=== PATIENT | female | born 1965 | race Caucasian/White ===

== ENCOUNTER 2020-09-26 12:51 | Emergency (ER) | payer OTHER ==
[2020-09-26] MEDS ORDERED: Morphine 4 MG/ML VIAL ONE ×2 (13:16→13:21)
--- NOTE | 2020-09-26 14:25 | RAD ---
XR Pelvis AP STANDARD History: Fall Comparison: Reference is made to a CT from 2013 Findings: Moderate narrowing of the right hip joint. Moderate bilateral acetabular osteophyte formati on. Poor penetration limits evaluation for fracture. Obturator rings appear to be intact. Impression: Limited exam due to poor penetration from body habitus. Moderate degenerative disease rig ht hip. No acute displaced fracture appreciated. If the patient is acutely unable to bear weight, CT would be recommended.
--- NOTE | 2020-09-26 14:28 | RAD ---
XR Lumbar Spine 1 view History: Fall Comparison: None. Findings: Only a single AP view was obtained. No lateral radiograph. No definite fracture is appreciated. Mild dextro scoliosis. Impression: Limited single view. No acute displaced fracture of the lumbar spine definitively appreci ated although lateral radiograph would be helpful.
== END 2020-09-26 17:45 | disposition home or self-care (01) ==
LOC: ERS 12:51
DX: S70.02XA Contusion of left hip, initial encounter (principal); M54.5 Low back pain; G47.30 Sleep apnea, unspecified; I10 Essential (primary) hypertension; Z79.899 Other long term (current) drug therapy; W01.0XXA Fall on same level from slipping, tripping and stumbling without subsequent striking against object, initial encounter
CPT/HCPCS: 72020; 72170; J2270

== ENCOUNTER 2020-09-28 10:47 | Inpatient (IN) | payer OTHER ==
--- NOTE | 2020-09-28 11:30 | RAD ---
Chest one view HISTORY: Dyspnea. COMPARISON: 09/09/2013. FINDINGS: Cardiac silhouette is magnified and enlarged. Pulmonary vasculature slightly engorged and a ccentuated by shallow inspiration. Mediastinum is midline. No focal airspace consolidation or evidence of pneumothorax. Degenerative changes left shoulder. IMPRESSION : No infiltrate is evident. Cardiomegaly and pulmonary vascular congestion suggest component of CHF.
[2020-09-28 12:37] LABS: ALT (SGPT) 170 U/L (8-55); AST (SGOT) 323 U/L (5-34); Albumin 3.7 g/dL (3.5-5.0); Alkaline Phosphatase 83 U/L (40-110); Anion Gap 19 mmol/L (10-20); BUN (Urea Nitrogen) 50 mg/dL (9.8-20.1); Bilirubin, Total 3.4 mg/dL (0.2-1.2); Calc. Creatinine Clearance 0 mL/min (70-130); Calcium 8.3 mg/dL (7.8-10.44); Carbon Dioxide 30 mmol/L (22-29); Chloride 97 mmol/L (98-107); Glucose 122 mg/dL (70-105); Potassium 5.2 mmol/L (3.5-5.1); Protein, Total 7.7 g/dL (6.0-8.3); Sodium 141 mmol/L (136-145)
[2020-09-28 13:16] LABS: CKMB 29.9 ng/mL (0-6.6)
[2020-09-28] MEDS ORDERED: Aspirin Chewable 81 MG TAB ONE (13:36)
[2020-09-28] MEDS ORDERED: Acetaminophen 650 MG Suppository PR PRN (13:54)
[2020-09-28] MEDS ORDERED: Ondansetron PF 4 MG/2 ML Vial IVP PRN (13:54)
[2020-09-28] MEDS ORDERED: Nitroglycerin 0.4 MG TAB (25 Tab Bottle) SL PRN (13:54)
[2020-09-28] MEDS ORDERED: Bisacodyl 5 MG TAB PO PRN (13:54)
[2020-09-28] MEDS ORDERED: Aspirin Chewable 81 MG TAB PO SCH (14:00)
--- NOTE | 2020-09-28 14:13 | PDOC.HHP ---
Hospitalist HPI - History of Present Illness Fall History of Present Illness: Patient is a pleasant 54-year-old lady who was seen in the emergency room on September 28, 2020. She has a history of morbid obesity. She does not ambulate much. She slid out of couch and fell a couple of days ago. She was brought to the emergency room and she had x-rays and received pain medications and was discharged home. She had a recurrence of sliding out of couch yesterday night as well as early today morning. She denies any head trauma or loss of consciousness. Family member in the room states that she has been having lethargy over the last few days. There is no history of fevers or chills. There is no history of Covid exposure. Patient is able to speak but is not speaking much. Collateral history was obtained from discussion with emergency room physician and patient's family member by the bedside. In the emergency room, patient was found to have multiple biochemical abnormalities including acute kidney injury and elevated troponin I. She has been referred to hospitalist service for admission to the hospital and further management. Patient does report shortness of breath with exertion. ED Course: BP: 156/97, Pulse: 85, Resp: 25, Temp: 98.1 (Oral), Pain: 0, O2 sat: 95 on (3L Oxygen), Time: 09/28/2020 13:16. Hospitalist ROS - Review of Systems Constitutional: reports: weakness. denies: fever, chills, sweats, malaise Respiratory: reports: SOB with excertion. denies: cough, dry, shortness of breath, hemoptysis, pleuritic pain, sputum, wheezing Cardiovascular: denies: chest pain, palpitations, orthopnea, paroxysmal noc. dyspnea, edema, light headedness All other systems reviewed; all pertinent +/- noted in HPI/Subj - Medication Medications: Allergies: Codeine and lisinopril Home medications: carvedilol tablet : Strength - 25 mg : ORAL Patient Dose: 25 mg Oral 2 times a day (before meals). Flexeril 10 mg : Strength - TABLET : ORAL Patient Dose: 1 tab(s) Oral every 8 hours PRN. ibuprofen 800 mg : Strength - TABLET : ORAL Patient Dose: 800 mg Oral every 8 hours PRN. traMADol 50 mg : Strength - TABLET : ORAL Patient Dose: 1-2 tab(s) Oral every 6 hours PRN. Hospitalist History - Past Medical History Other Medical History: Past medical history: Obstructive sleep apnea syndrome, hypertension and osteoarthritis Surgical history: Uterine ablation, cholecystectomy, section and left knee surgery Social history: Patient denies tobacco use, alcohol use or recreational drug use. Family history: No family history of premature coronary artery disease. - Exam General - other findings: Morbid obesity ENT: normocephalic atraumatic Neck: supple, symmetric, no thyromegaly, no lymphadenopathy Heart: RRR, no gallops, no rubs, normal peripheral pulses Respiratory: CTAB, no wheezes, no rales, no ronchi, normal chest expansion Gastrointestinal: soft, non-tender, normal bowel sounds, distended Extremities: 1+ LE edema Skin - other findings: multiple scratches over upper extremities Neurological: cranial nerve grossly intact, normal sensation to touch, no weakness Psychiatric: normal behavior, oriented to person, oriented to place, flat affect Hospitalist Results - Labs Result Diagrams: 09/28/20 12:05 Lab results: Sodium 141 mmol/L (136-145) 09/28/20 12:05 Potassium 5.2 mmol/L (3.5-5.1) H 09/28/20 12:05 Chloride 97 mmol/L (98-107) L 09/28/20 12:05 Carbon Dioxide 30 mmol/L (22-29) H 09/28/20 12:05 BUN 50 mg/dL (9.8-20.1) H 09/28/20 12:05 Creatinine 2.88 mg/dL (0.6-1.1) H 09/28/20 12:05 Glucose 122 mg/dL (70-105) H 09/28/20 12:05 Calcium 8.3 mg/dL (7.8-10.44) 09/28/20 12:05 Total Bilirubin 3.4 mg/dL (0.2-1.2) H 09/28/20 12:05 AST 323 U/L (5-34) H 09/28/20 12:05 ALT 170 U/L (8-55) H 09/28/20 12:05 Alkaline Phosphatase 83 U/L (40-110) 09/28/20 12:05 CK-MB (CK-2) 29.9 ng/mL (0-6.6) H* 09/28/20 12:05 Troponin I 4.430 ng/mL (< 0.028) H* 09/28/20 12:05 B-Natriuretic Peptide 420.8 pg/mL (0-100) H 09/28/20 12:05 Serum Total Protein 7.7 g/dL (6.0-8.3) 09/28/20 12:05 Albumin 3.7 g/dL (3.5-5.0) 09/28/20 12:05 - EKG Interpretation EKG: KG by my review shows normal sinus rhythm, no ST changes to suggest an acute coronary syndrome. - Radiology Interpretation Chest x-ray Status: image reviewed by me Additional Comment: Chest one view HISTORY: Dyspnea. COMPARISON: 09/09/2013. FINDINGS: Cardiac silhouette is magnified and enlarged. Pulmonary vasculature slightly engorged and a ccentuated by shallow inspiration. Mediastinum is midline. No focal airspace consolidation or evidence of pneumothorax. Degenerative changes left shoulder. IMPRESSION : No infiltrate is evident. Cardiomegaly and pulmonary vascular congestion suggest component of CHF. Hospitalist H&P A/P - Problem (1) Non-ST elevation myocardial infarction (NSTEMI) Code(s): I21.4 - NON-ST ELEVATION (NSTEMI) MYOCARDIAL INFARCTION Status: Acute (2) Acute kidney injury Code(s): N17.9 - ACUTE KIDNEY FAILURE, UNSPECIFIED Status: Acute (3) Hyperkalemia Code(s): E87.5 - HYPERKALEMIA Status: Acute (4) Abnormal liver function tests Code(s): R94.5 - ABNORMAL RESULTS OF LIVER FUNCTION STUDIES Status: Acute (5) Congestive heart failure Code(s): I50.9 - HEART FAILURE, UNSPECIFIED Status: Acute (6) Morbid obesity Code(s): E66.01 - MORBID (SEVERE) OBESITY DUE TO EXCESS CALORIES Status: Chronic - Plan Plan: Patient presenting with non-ST elevation myocardial infarction. Monitor on telemetry, recheck troponin. Consult cardiology service. Patient is being started on heparin drip. Continue aspirin. Clinically, patient also has congestive heart failure. Check 2D echocardiogram, continue diuretics with close follow-up of renal function. Kidney injury is acute, consult nephrology service. Hyperkalemia mild, recheck potassium level. Check noncontrast CT scan of the brain, given history of encephalopathy changes. Abnormal LFTs most likely secondary to congestive heart failure, check abdominal ultrasound. Estimated length of stay in the hospital: Greater than 2 midnights Level of risk: High Level of complexity: High Many thanks for allowing me to participate in your patient's care. Please feel free to contact me with any questions or concerns. Primary CARE provider: Dr. Michelle Khan
[2020-09-28] MEDS ORDERED: Heparin 25,000 units/D5W 500 ML ONE (14:46)
[2020-09-28] MEDS ORDERED: Heparin 10,000 UNITS/ 10 ML VIAL ONE (16:04)
[2020-09-28 17:02] LABS: Hemoglobin 13.9 g/dL (12.0-16.0); Mean Corpuscular HGB CONC 31.9 g/dL (32.0-36.0); Mean Corpuscular Hemoglobin 32.7 pg (27.0-31.0); Mean Platelet Volume 9.1 fL (7.4-10.4); Platelet Count 96 thou/uL (130-400); RBC Distribution Width 13.9 % (11.5-14.5); Red Blood Cell (RBC) Count 4.26 mill/uL (4.20-5.40); White Blood Cell (WBC) Count 22.4 thou/uL (4.8-10.8)
[2020-09-28 17:21] LABS: Band 5 % (5-11); Lymphocytes 5 % (21-51); MDiff Complete? YES; Macrocytosis SLIGHT = 6-15 cells (100X) (0-5/hpf); Metamyelocyte 1 % (0-0); Monocytes 6 % (0-10); Neutrophil 83 % (42-75); Platelet Morphology Comment Appears Decreased; Polychromasia SLIGHT = 2-3 cells (100X) (0-2/hpf)
[2020-09-28 17:36] LABS: Critical Call Chem Troponin I RESULT DECREASING; Troponin I 4.039 ng/mL (< 0.028)
--- NOTE | 2020-09-28 18:55 | PDOC.EVN ---
Event Note - Event Note Event Note: Patient was seen for lethargy. She is lying in bed, keeping her eyes closed. She is able to tell me her name and her birthday. She denies any chest pain or shortness of breath. Cranial nerves II to XII are intact. S1 and S2 are heard, regular. Lungs clear to auscultation. We will check blood gases to rule out hypercapnic respiratory failure. Unable to obtain CT scan of the brain because of patient size. Family member confirms that patient did not sustain head trauma during her falls. We will check troponin I, CBC and comprehensive metabolic profile. If hemoglobin is dropping, discontinue heparin drip and observe. If she is in hypercapnic respiratory failure, transferred to IMCU and start BiPAP. I will order albuterol nebulizer for mild hyperkalemia. I will also start her on empiric antibiotics in case she has an infection that has not manifested itself. She does have leukocytosis but no fever. I will check urine studies and blood cultures.
[2020-09-28] MEDS ORDERED: Vancomycin 1 GM in Premix Bag 1 BAG IVPB SCH (19:00)
[2020-09-28] MEDS ORDERED: Albuterol Sulfate 2.5 mg/3 ml Neb ONE (19:21)
[2020-09-28] MEDS ORDERED: Albuterol Sulfate 2.5 mg/3 ml Neb NEB SCH (19:45)
[2020-09-28 19:51] LABS: #Basophils 0.1 thou/uL (0.0-0.2); #Lymphocytes 1.6 thou/uL (1.20-3.40); #Monocytes 2.3 thou/uL (0.11-0.59); #Neutrophils 18.7 thou/uL (1.40-6.50); %Basophils 0.6 % (0.0-1.0); %Eosinophils 0.2 % (0.0-10.0); %Monocytes 10.2 % (0.0-10.0); %Neutrophils 82.1 % (42.0-75.0); Hemoglobin 14.5 g/dL (12.0-16.0); Mean Corpuscular HGB CONC 31.7 g/dL (32.0-36.0); Mean Corpuscular Hemoglobin 32.3 pg (27.0-31.0); Mean Platelet Volume 10.1 fL (7.4-10.4); Platelet Count 48 thou/uL (130-400); Red Blood Cell (RBC) Count 4.49 mill/uL (4.20-5.40); White Blood Cell (WBC) Count 22.8 thou/uL (4.8-10.8)
[2020-09-28 20:12] LABS: Band 5 % (5-11); Lymphocytes 6 % (21-51); MDiff Complete? YES; Monocytes 9 % (0-10); Neutrophil 80 % (42-75); Platelet Morphology Comment Appears Decreased; RBC Morphology Normal; Vacuoles SLIGHT
[2020-09-28 20:51] LABS: Critical Call Chem Troponin I RESULT DECREASING; Troponin I 3.384 ng/mL (< 0.028)
[2020-09-28] MEDS ORDERED: Metoprolol Tartrate 25 MG TAB PO SCH (21:00)
[2020-09-28 21:05] LABS: Actual Bicarbonate (HCO3a) 33.1 mEq/L (22-28); Analyzer IN Cardio OR; Base Excess (BEa) 3.1 mEq/L (-2.0 to +3.0); Calcium, Ionized (arterial) 1.07 mmol/L (1.12-1.30); Carboxyhemoglobin (COHb) 2.1 gm% (0.0-3.0); Hemoglobin (Hb) 14.1 g/dL (12.0-16.0); O2 Tension (PaO2), arterial 69.1 mmHg (80.0-100.0); Potassium - ABG Lab 4.89 mmol/L (3.70-5.30)
[2020-09-28 21:06] LABS: Puncture Site RBA; pH, Arterial 7.24 (7.35-7.45)
[2020-09-28 21:37] LABS: SARS-CoV-2 NAA Rapid Test Not Detected (NotDetected)
[2020-09-28] MEDS ORDERED: hydrALAZINE 20 MG/ML VIAL SLOW IVP PRN (21:45)
[2020-09-28 22:08] LABS: Albumin 3.2 g/dL (3.5-5.0)
[2020-09-28 22:09] LABS: Chloride 100 mmol/L (98-107); Potassium 5.2 mmol/L (3.5-5.1); Sodium 139 mmol/L (136-145)
[2020-09-28 22:10] LABS: Calcium 7.6 mg/dL (7.8-10.44); Glucose 131 mg/dL (70-105)
[2020-09-28 22:11] LABS: Carbon Dioxide 27 mmol/L (22-29); Globulin 3.5 g/dL (2.4-3.5); Protein, Total 6.7 g/dL (6.0-8.3)
[2020-09-28 22:12] LABS: Anion Gap 17 mmol/L (10-20); Bilirubin, Total 2.6 mg/dL (0.2-1.2)
[2020-09-28 22:13] LABS: Alkaline Phosphatase 71 U/L (40-110)
[2020-09-28 22:14] LABS: BUN (Urea Nitrogen) 56 mg/dL (9.8-20.1); Calc. Creatinine Clearance 0 mL/min (70-130)
[2020-09-28 22:15] LABS: AST (SGOT) 237 U/L (5-34)
[2020-09-28 22:16] LABS: ALT (SGPT) 140 U/L (8-55); CK (CPK) 1214 U/L (29-168)
[2020-09-28 22:21] LABS: Critical Call Chem Troponin I RESULT DECREASING; Troponin I 3.295 ng/mL (< 0.028)
--- NOTE | 2020-09-28 22:46 | CON ---
DATE OF CONSULTATION: 09/28/2020 SERVICE: Nephrology. REASON FOR CONSULTATION: Acute renal failure. REQUESTING PROVIDER: Vaibhav Oconnell MD. CHIEF COMPLAINT: Mental status change. HISTORY OF PRESENT ILLNESS: A 54-year-old morbidly obese female, brought in by EMS due to mental status change and blue discoloration of the fingers and lips. History was obtained from talking to the patient and spouse at the bedside. The patient reportedly developed nausea on September 24 and had emesis on and subsequently had a fall on September 26, for which she presented to the emergency room and was seen and discharged. Since then, it was noted that the patient has been very sleepy and weak. There was however no history of fever or diarrhea or hematemesis. There also was an unwitnessed fall early today. described an episode where he suddenly found the patient on the floor and he subsequently made the patient comfortable; however, when the patient continued to be sleeping beyond usual time and was also noted to have bluish discoloration of the hand and lips, he called EMS. also reported that since the fall on September 26, the patient has been more weak and has been taking some pain medications. The patient reported taking some ibuprofen as well as Tylenol and other unknown medications. She also admitted taking aspirin. She denied intentional overdose on any medication. She has severe obstructive sleep apnea, was supposed to be on CPAP, but however has not been compliant as BiPAP mask got damaged. There was no history of fever, chest pain, abdominal pain, dysuria, headache, or focal weakness. The patient also denied hitting head during her falls. The patient on presentation to the ER was noted to be lethargic, but could not get CT scan due to her size. Further evaluation revealed elevated creatinine necessitating Nephrology consult. The patient was noted to be more sleepy on arrival to the medical floor and subsequent evaluation with arterial blood gases showed acute respiratory acidosis and acute respiratory failure with hypercarbia, at which point the patient was directed to IMCU/ICU for BiPAP treatment. The patient also was noted to have elevated troponin on presentation, hence was started on heparin infusion for presumed [id number] myocardial infarction. PAST MEDICAL HISTORY: 1. Morbid obesity. 2. Obstructive sleep apnea. 3. Hypertension. 4. Osteoarthritis. PAST SURGICAL HISTORY: 1. Uterine ablation. 2. Cholecystectomy. 3. section. 4. Appendectomy. 5. Left knee surgery. FAMILY HISTORY: Reviewed, but noncontributory. SOCIAL HISTORY: The patient lives at home with spouse. Denied tobacco, alcohol, or recreational drug use. ALLERGIES: CODEINE AND LISINOPRIL. HOME MEDICATIONS: 1. Carvedilol 25 mg p.o. b.i.d. 2. Advil p.r.n. 3. Acetaminophen p.r.n. The patient also reported taking Lasix and some other medications. During her recent visit to the ER on September 26, the patient was given a prescription of ibuprofen 800 mg every 8 hours p.r.n., tramadol 50 mg 1 to 2 tablets p.r.n. for pain as well as Flexeril p.r.n., but she just picked that up and had not started these. REVIEW OF SYSTEMS: A 12-point review of system performed was negative other than pertinent positives and negatives included in the history of present illness. PHYSICAL EXAMINATION: VITAL SIGNS: Temperature , pulse 85, respiratory rate 21, SpO2 of 97% on 3 L nasal cannula, blood pressure is 166/121. GENERAL: Morbidly obese female, who is lethargic. Afebrile, anicteric, acyanotic. HEENT: Normocephalic, atraumatic. Oral mucosa is dry. NECK: Short thick neck, symmetrical and supple. No obvious JVD appreciated. CARDIOVASCULAR: Regular rhythm and rate with normal heart sounds 1 and 2. RESPIRATORY: Fair air entry bilateral, decreased at both bases with no obvious crackle or rhonchi. Transmitted breath sounds also is noted. GI: Morbidly obese with mild pannus. EXTREMITIES: Huge legs with no obvious edema. Some skin fold dermatitis with possible candidiasis noted, especially on the right leg. P[employer] HE[employer] W[employer]DER: The patient is lethargic. He wakes up and tries to open eyes with stimulation. Some memory lapses noted. DIAGNOSTIC DATA: CBC earlier today showed WBC 22.4, hemoglobin 13.9, MCV 103, and platelets 96. Chemistry done earlier today showed sodium 141, potassium 5.2, chloride 97, CO2 of 30 BUN 50, creatinine 2.88, glucose 122, calcium 8.3, total bilirubin 3.4, AST 323, ALT 170, alkaline phosphatase 83, total protein 7.7, albumin 3.7. Initial cardiac markers showed CK-MB 29.9, troponin 4.43. BNP is 420. Urinalysis has not been collected. Arterial blood gases performed showed a pH of 7.24, pCO2 of 79, PO2 of 69, ionized calcium of 1.07. Chest x-ray performed earlier today showed enlarged cardiac silhouette with slightly engorged and accentuated pulmonary vasculature. No focal airspace consolidation or evidence of pneumothorax noted. ASSESSMENT: 1. Acute kidney injury. 2. The patient on presentation had creatinine of 2.88, which is a huge jump from 0.96 on August 2013. Of note, there is no recent labs for this patient since 2012. She, however, denied history of kidney disease. She admitted to use of NSAIDs as well as poor oral intake and emesis in the last few days. This raises concern for hemodynamic factors related to NSAID use and dehydration. The patient also had falls and was dehydrated, raising concern for rhabdomyolysis. Also associated elevated CK-MB and troponin as well as abnormal transaminases makes rhabdomyolysis likely. 3. Morbid obesity with obesity hypoventilation. 4. Acute respiratory failure with hypercarbia. 5. Acute respiratory acidosis with metabolic compensation. 6. Alkalosis: Due to compensation to respiratory acidosis as well as possible contraction alkalosis. 7. Mild hyperkalemia. 8. Transaminitis: Acuity cannot be determined. The patient also had elevated bilirubin. 9. Mental status change of decreased responsiveness. Given history of trauma, CT scan of the brain is prudent. However, the patient's eyes makes it impossible to get a CT scan. Decreased mentation may be related to metabolic acidosis and hypercarbia. Uremia may also be contributing. PLAN: We will hold diuretic therapy for now. IV fluid therapy is contemplated. We will get CPK level as well as urinalysis and urine electrolytes. We will avoid nephrotoxic agent including NSAIDs. We will also get urine drug screen. We will have to insert a Colon catheter for correct intake and output. Further treatment to follow depending on hospital course. Job ID: [id number]
[2020-09-28] MEDS: Sodium Chloride 0.9% 1,000 ML IV SCH (22:55)
[2020-09-28] MEDS: Acetaminophen 325 MG TAB PO PRN (23:27)
[2020-09-28] MEDS: Atorvastatin Calcium 40 MG TAB PO SCH (23:28)
[2020-09-29 01:29] LABS: Bacteria/HPF None Seen HPF (None Seen); Bilirubin Negative (Negative); Blood, Urine Negative (Negative); Clarity Turbid (Clear); Glucose, Urine (Dipstick) Normal (Negative); Ketone, Urine Negative (Negative); Leukocyte 25 Leu/uL (Negative); Nitrite Negative (Negative); Protein, Urine (Dipstick) 30 mg/dL (Neg-Trace); RBC/HPF 0-3 HPF (0-3); Specific Gravity, Urine 1.019 (1.002-1.036); Squamous Epithelial 0-3 HPF (0-3); pH, Urine 5.5 (5.0-9.0)
[2020-09-29 01:30] LABS: Urine Culture Reflex Yes Yes
[2020-09-29 01:35] LABS: Medtox Reader # READER 4
[2020-09-29 01:36] LABS: Amphetamine Not Detected (NotDetected); Barbiturates Screen Not Detected (NotDetected); Benzodiazepine Screen Not Detected (NotDetected); Cocaine Metabolite Screen Not Detected (NotDetected); Medtox Control Line Valid? VALID (VALID); Methadone Not Detected (NotDetected); Methamphetamine Not Detected (NotDetected); Opiate Screen Detected (NotDetected); Oxycodone Screen Not Detected (NotDetected); Phencyclidine (PCP) Not Detected (NotDetected); THC/Cannabinoid Screen Not Detected (NotDetected); Tricyclic Screen Not Detected (NotDetected)
[2020-09-29 01:42] LABS: Creatinine, Urine 287.04 mg/dL (47-110); Sodium, Urine Less than 20 mmol/L (Not Available); Urea Nitrogen, Random Urine 576 mg/dl
[2020-09-29] MEDS: MEROPENEM 1 GM/50 ML 1 GM in Premix Bag 1 BAG IVPB SCH ×2 (01:58→11:53)
[2020-09-29] MEDS: Heparin 10,000 UNITS/ 10 ML VIAL SLOW IVP SCH (03:53)
[2020-09-29 04:31] LABS: #Basophils 0.1 thou/uL (0.0-0.2); #Lymphocytes 1.3 thou/uL (1.20-3.40); %Basophils 0.9 % (0.0-1.0); %Eosinophils 0.1 % (0.0-10.0); %Monocytes 6.2 % (0.0-10.0); %Neutrophils 84.7 % (42.0-75.0); ALT (SGPT) 133 U/L (8-55); AST (SGOT) 204 U/L (5-34); Albumin 3.1 g/dL (3.5-5.0); Alkaline Phosphatase 74 U/L (40-110); Bilirubin, Direct 1.2 mg/dL (0.1-0.3); Bilirubin, Total 2.3 mg/dL (0.2-1.2); Hemoglobin 13.2 g/dL (12.0-16.0); Mean Corpuscular HGB CONC 31.8 g/dL (32.0-36.0); Mean Corpuscular Hemoglobin 32.8 pg (27.0-31.0); Mean Platelet Volume 9.6 fL (7.4-10.4); Platelet Count 90 thou/uL (130-400); Protein, Total 6.5 g/dL (6.0-8.3); Red Blood Cell (RBC) Count 4.03 mill/uL (4.20-5.40); White Blood Cell (WBC) Count 16.5 thou/uL (4.8-10.8)
[2020-09-29 04:32] LABS: Anion Gap 14 mmol/L (10-20); BUN (Urea Nitrogen) 57 mg/dL (9.8-20.1); Calc. Creatinine Clearance 106 mL/min (70-130); Calcium 7.6 mg/dL (7.8-10.44); Carbon Dioxide 30 mmol/L (22-29); Cardiac Risk 3.4 (Less than 4.5); Chloride 101 mmol/L (98-107); Cholesterol 112 mg/dl (< 200 Desired); Glucose 116 mg/dL (70-105); HDL Cholesterol 33 mg/dL (>60 Neg Risk); LDL Cholesterol, Calculated 62 mg/dL; Potassium 4.9 mmol/L (3.5-5.1); Sodium 140 mmol/L (136-145); Triglycerides 87 mg/dL (Less than 150)
[2020-09-29] MEDS: Carvedilol 6.25 MG TAB PO SCH ×3 (07:12→16:09)
--- NOTE | 2020-09-29 07:54 | PDOC.NEPPN ---
- Subjective Encounter Date: 09/29/20 Subjective: Seen in follow up for ANNITA. Still sleepy but more conversational and responsive. Conversational is limited due to BIPAP mask. - Objective Vital Signs & Weight: Vital Signs (12 hours) Temp Pulse Resp Pulse Ox 09/29/20 07:23 96 09/29/20 02:04 65 20 96 09/28/20 21:49 96 09/28/20 21:00 98.2 F 09/28/20 20:01 95 09/28/20 19:59 95 Weight Weight 444 lb 10.758 oz Most Recent Monitor Data Heart Rate from ECG 74 NIBP 133/87 NIBP BP-Mean 102 Respiration from ECG 18 SpO2 94 I&O: 09/28/20 09/29/20 09/30/20 06:59 06:59 06:59 Intake Total 1615 Output Total 694 35 Balance 921 -35 Result Diagrams: 09/29/20 03:31 09/29/20 03:31 Nephrology ROS - Medication Medications: Active Medications Generic Name Dose Route Start Last Admin Trade Name Freq PRN Reason Stop Dose Admin Acetaminophen 650 mg 09/28/20 13:54 09/28/20 23:27 Acetaminophen 325 Mg Tab PO 650 mg Q4H PRN Administration Headache/Fever/Mild Pain (1-3) Atorvastatin Calcium 40 mg 09/28/20 21:00 09/28/20 23:28 Atorvastatin Calcium 40 Mg Tab PO 40 mg HS TIANA Administration Carvedilol 6.25 mg 09/28/20 17:00 09/29/20 07:12 Carvedilol 6.25 Mg Tab PO Not Given BID-[facility] Heparin Sodium (Porcine) 0 units 09/28/20 23:15 09/29/20 03:53 Heparin 10,000 Units/ 10 Ml Vial SLOW IVP 4,000 unit ASDIR TIANA Administration Protocol Meropenem 1 gm/ Device 50 mls @ 100 mls/hr 09/28/20 23:59 09/29/20 01:58 IVPB 50 mls 1200,2359 TIANA Administration Sodium Chloride 1,000 mls @ 125 mls/hr 09/28/20 22:00 09/28/20 22:55 Normal Saline 0.9% IV 1,000 mls .Q8H TIANA Administration Vancomycin HCl 2 gm/ Sodium 500 mls @ 250 mls/hr 09/29/20 01:00 09/29/20 02:00 Chloride IVPB 500 mls 0100 TIANA Administration - Exam General - other findings: lethargic. No distress ENT: normocephalic atraumatic, dry oral mucosa Neck: symmetric Respiratory - other findings: BIPAP transmitted breath sound noted Cardiovascular: RRR Gastrointestinal - other findings: Morbidly obese, non tender Extremities - other findings: massive legs. No obvious edema Neurological: CN's grossly intact, no new deficit PSYCH: oriented to person, oriented to place, lethargic Nephrology Results - Labs Result Diagrams: 09/29/20 03:31 09/29/20 03:31 Lab results: WBC 16.5 thou/uL (4.8-10.8) H 09/29/20 03:31 Hgb 13.2 g/dL (12.0-16.0) 09/29/20 03:31 Hct 41.6 % (36.0-47.0) 09/29/20 03:31 MCV 103.0 fL (78.0-98.0) H 09/29/20 03:31 Plt Count 90 thou/uL (130-400) L 09/29/20 03:31 Neutrophils % 84.7 % (42.0-75.0) H 09/29/20 03:31 Band Neuts % (Manual) 5 % (5-11) 09/28/20 19:28 ABG pH 7.24 (7.35-7.45) L* 09/28/20 19:08 ABG pCO2 79.0 mmHg (35.0-45.0) H* 09/28/20 19:08 ABG pO2 69.1 mmHg (80.0-100.0) L 09/28/20 19:08 Sodium 140 mmol/L (136-145) 09/29/20 03:31 Potassium 4.9 mmol/L (3.5-5.1) 09/29/20 03:31 Chloride 101 mmol/L (98-107) 09/29/20 03:31 Carbon Dioxide 30 mmol/L (22-29) H 09/29/20 03:31 BUN 57 mg/dL (9.8-20.1) H 09/29/20 03:31 Creatinine 1.88 mg/dL (0.6-1.1) H 09/29/20 03:31 Glucose 116 mg/dL (70-105) H 09/29/20 03:31 Calcium 7.6 mg/dL (7.8-10.44) L 09/29/20 03:31 Total Bilirubin 2.3 mg/dL (0.2-1.2) H 09/29/20 03:31 AST 204 U/L (5-34) H 09/29/20 03:31 ALT 133 U/L (8-55) H 09/29/20 03:31 Alkaline Phosphatase 74 U/L (40-110) 09/29/20 03:31 Creatine Kinase 1214 U/L (29-168) H 09/28/20 21:41 CK-MB (CK-2) 29.9 ng/mL (0-6.6) H* 09/28/20 12:05 Troponin I 3.295 ng/mL (< 0.028) H* 09/28/20 21:41 B-Natriuretic Peptide 420.8 pg/mL (0-100) H 09/28/20 12:05 Serum Total Protein 6.5 g/dL (6.0-8.3) 09/29/20 03:31 Albumin 3.1 g/dL (3.5-5.0) L 09/29/20 03:31 Urine Ketones Negative mg/dL (Negative) 09/29/20 01:05 Urine Blood Negative (Negative) 09/29/20 01:05 Urine Nitrite Negative (Negative) 09/29/20 01:05 Ur Leukocyte Esterase 25 Juan/uL (Negative) A 09/29/20 01:05 Urine RBC 0-3 HPF (0-3) 09/29/20 01:05 Urine WBC 4-6 HPF (0-3) A 09/29/20 01:05 Ur Squamous Epith Cells 0-3 HPF (0-3) 09/29/20 01:05 Urine Bacteria None Seen HPF (None Seen) 09/29/20 01:05 Sodium 140 mmol/L (136-145) 09/29/20 03:31 Potassium 4.9 mmol/L (3.5-5.1) 09/29/20 03:31 Chloride 101 mmol/L (98-107) 09/29/20 03:31 Carbon Dioxide 30 mmol/L (22-29) H 09/29/20 03:31 Anion Gap 14 mmol/L (10-20) 09/29/20 03:31 BUN 57 mg/dL (9.8-20.1) H 09/29/20 03:31 Creatinine 1.88 mg/dL (0.6-1.1) H 09/29/20 03:31 Glucose 116 mg/dL (70-105) H 09/29/20 03:31 Calcium 7.6 mg/dL (7.8-10.44) L 09/29/20 03:31 Albumin 3.1 g/dL (3.5-5.0) L 09/29/20 03:31 Nephrology AP PN - Plan ASSESSMENT: Acute kidney injury.Due to hemodynamic factors related to dehydration and NSAID use, as well as rhabdomyolysis. Creat is trending down with IVF Metabolic aalkalosis Hyperkalemia: resolved Hypocalcemia: ? vitamin D deficiency Morbid obesity with BRENDAN and obesity hypoventilation. Acute respiratory failure with hypercarbia. Acute respiratory acidosis with metabolic compensation. Transaminitis: Most likely due to dehydration and rhabdomyolysis. acute viral i nfection cannot be ruled out. Trending down with IVF. Mental status change of decreased responsiveness. Truamatic brain injury remained a concern. Seem to be due to hypercarbia however. Elevated Troponin. Rhabdomyolysis +/- NSTEMI Plan Continue IVF Avoid nephrotoxic agents Get Vit D level. Replete if indicated. Other treatments to continue
--- NOTE | 2020-09-29 08:45 | ULT ---
Abdominal ultrasound: 09/29/2020 COMPARISON: None HISTORY: Abnormal liver function tests TECHNIQUE: Multiplanar grayscale sonographic imaging of the abdomen obtained. FINDINGS: Secondary to body habitus the abdominal aorta and IVC could not be well visualized. The ruiz creas is completely obscured. Limited assessment of the hepatic parenchyma demonstrates heterogeneity of the hepatic parenchyma with a suggestion of peripheral contour irregularity suspicio us for underlying cirrhosis. Common bile duct is estimated at 6-7 millimeters. The patient is status post cholecystectomy. Right kidney is partially obscured and measures approximately 12.8 cm in craniocaudal dimension. No right-sided hydronephrosis is evident. Spleen is difficult to accurately measure and may be mildly enlarged. Left kidney is vaguely visualiz ed measuring approximately 12.9 cm. No left-sided hydronephrosis. Images include assessment of the bladder which is poorly assessed and appears to contain a Colon catheter. IMPRESSION: Markedly limited examination secondary to body habitus. Findings suggesting hepatic cirrh osis with possible splenomegaly on the basis of portal hypertension.
[2020-09-29] MEDS: Aspirin 325 mg Enteric Coated Tablet PO SCH (08:47)
[2020-09-29] MEDS: Sodium Chloride 0.9% 1,000 ML IV SCH ×2 (08:48→14:37)
[2020-09-29] MEDS ORDERED: FLU VACC QS2020-21(6MOS UP)/PF 60 MCG/0.5 ML SYRINGE IM ONE (09:00)
[2020-09-29 09:17] LABS: PTT 155.4 sec (22.9-36.1)
[2020-09-29 14:38] LABS: Actual Bicarbonate (HCO3a) 32.3 mEq/L (22-28); Base Excess (BEa) 3.2 mEq/L (-2.0 to +3.0); Calcium, Ionized (arterial) 1.08 mmol/L (1.12-1.30); Carboxyhemoglobin (COHb) 1.6 gm% (0.0-3.0); Hemoglobin (Hb) 13.1 g/dL (12.0-16.0); O2 Tension (PaO2), arterial 74.3 mmHg (80.0-100.0); pH, Arterial 7.26 (7.35-7.45)
[2020-09-29] MEDS: Heparin 25,000 units/D5W 500 ML IVPB SCH (14:38)
[2020-09-29 15:04] LABS: ALV-art Gradient 62.735 mmHg (0-20); CO2 Tension 72.9 mmHg (35.0-45.0); Puncture Site LRA
[2020-09-29] MEDS: Ergocalciferol 1.25 MG(50,000 UNITS) CAP PO SCH (16:10)
--- NOTE | 2020-09-29 17:46 | CON ---
DATE OF CONSULTATION: 09/29/2020 HISTORY OF PRESENT ILLNESS: Ms. Allison is a 54-year-old female, who is 5 feet 5 inches, 444 pounds. According to her , she is very sedentary, basically is in a wheelchair trailer. She has an office chair with no arms that she transfers to and she rolls herself around in the house. Prior to admission, she slid out of a chair and could not get back up, hence the admission. She says she has CPAP at home, but she is not wearing it. PAST MEDICAL HISTORY: Remarkable for; 1. Hypertension. 2. History of uterine ablation. 3. History of cholecystectomy. 4. History of . 5. History of knee surgery. SOCIAL HISTORY: She is nonsmoker and nondrinker. FAMILY HISTORY: Negative for lung disease in early age. REVIEW OF SYSTEMS: Ten points otherwise negative. PHYSICAL EXAMINATION: GENERAL: She is somnolent, but arousable and answers questions. VITAL SIGNS: Heart rates in the 60s, respiratory rates in the teens, oximetry is in the low 90s, blood pressure 132/77. HEENT: Pupils are reactive. Sclerae are anicteric. NECK: Supple. LUNGS: Distant. CARDIAC: Heart tones are almost not audible. ABDOMEN: Soft and massive. EXTREMITIES: With stasis changes and lower extremities are massive. LABORATORY DATA: White count 16.5, hemoglobin 13.2, platelets 90,000. Sodium 140, potassium 4.9, chloride 101, bicarb 30, BUN 57. Creatinine 1.88, improved from 2.17 yesterday. Bilirubin is 2.3. Liver enzymes are mildly elevated. Chest x-ray is under-penetrated. Echocardiogram done today is technically of poor quality. Ejection fraction is estimated to be normal. She does have a dilated right ventricle as one would expect. Blood gas shows a high CO2 and decreased pH as expected. IMPRESSION: 1. Obesity hypoventilation syndrome. 2. Pulmonary hypertension secondary to untreated sleep apnea. 3. Life-threatening obesity. I doubt she will ever be ambulatory again unless she loses over 200 pounds. Her 's main concern is that she not go home. He wants her placed somewhere as it sounds like they are having increasing difficulty taking care of her. Her code status clearly should be addressed. If she ever gets intubated, she will not be extubated without a tracheostomy. 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 Hopefully, we will see gradual improvement in her gas exchange. Blood gas today is similar to yesterday's blood gas, showing a pH of 7.26, CO2 of 72, and PO2 of 74. We made some adjustments to her noninvasive ventilation. The goal FiO2 needs to be set with a saturation of 88 to 92 as our goal. Probably needs to remain in the critical care unit for now. This is a 70 min consult with greater than 50% of the time spent on the unit with coordination of care. Job ID: [id number] MTDD
--- NOTE | 2020-09-29 18:04 | PDOC.HOSPP ---
- Subjective Encounter Date: 09/29/20 Encounter Time: 17:55 Subjective: f/u for NSTEMI/hypoxic resp failure/ANNITA/Rhabdomyolysis/life threatening obesity. Receiving Meropenem/Vancomycin/IVF's. - Objective Vital Signs & Weight: Vital Signs (12 hours) Pulse Resp Pulse Ox 09/29/20 14:34 64 10 L 94 L 09/29/20 09:40 93 L 09/29/20 07:23 96 Weight Weight 444 lb 10.758 oz Most Recent Monitor Data Heart Rate from ECG 54 NIBP 125/68 NIBP BP-Mean 87 Respiration from ECG 18 SpO2 94 I&O: 09/28/20 09/29/20 09/30/20 06:59 06:59 06:59 Intake Total 1615 2517 Output Total 694 690 Balance 921 1827 Result Diagrams: 09/29/20 03:31 09/29/20 03:31 Additional Labs: Microbiology 09/29/20 01:30 Urine henson catheter Urine Culture - Preliminary NO GROWTH AT 12 HOURS 09/28/20 21:41 Venous blood - Neck Blood Culture - Preliminary Specimen has been received and culture in progress. No Growth to date. Laboratory Tests 09/28/20 09/28/20 09/28/20 12:05 12:05 16:44 WBC 22.4 H Plt Count 96 L Potassium BUN Creatinine AST ALT Creatine Kinase Troponin I 4.430 H* B-Natriuretic Peptide 420.8 H Influenza A RNA INAAT Influenza B RNA INAAT SARS-CoV-2 Rap RNA(RT-PCR) 09/28/20 09/28/20 09/28/20 16:44 19:28 20:05 WBC 22.8 H Plt Count 48 L Potassium BUN Creatinine AST ALT Creatine Kinase Troponin I 4.039 H* 3.384 H* B-Natriuretic Peptide Influenza A RNA INAAT Influenza B RNA INAAT SARS-CoV-2 Rap RNA(RT-PCR) 09/28/20 09/28/20 09/28/20 20:20 21:41 21:41 WBC Plt Count Potassium 5.2 H BUN 56 H Creatinine 2.17 H AST 237 H ALT 140 H Creatine Kinase 1214 H Troponin I 3.295 H* B-Natriuretic Peptide Influenza A RNA INAAT Not Detected Influenza B RNA INAAT Not Detected SARS-CoV-2 Rap RNA(RT-PCR) Not Detected 09/29/20 09/29/20 03:31 03:31 WBC Plt Count Potassium BUN Creatinine AST 204 H ALT 133 H Creatine Kinase 866 H Troponin I B-Natriuretic Peptide Influenza A RNA INAAT Influenza B RNA INAAT SARS-CoV-2 Rap RNA(RT-PCR) Radiology Reviewed by me: Yes (Echo - EF 55-60%, mod MIRIAM, ) EKG Reviewed by me: Yes (Tele - SR) Hospitalist ROS - Medication Medications: Active Medications Generic Name Dose Route Start Last Admin Trade Name Freq PRN Reason Stop Dose Admin Acetaminophen 650 mg 09/28/20 13:54 09/28/20 23:27 Acetaminophen 325 Mg Tab PO 650 mg Q4H PRN Administration Headache/Fever/Mild Pain (1-3) Aspirin 325 mg 09/29/20 09:00 09/29/20 08:47 Aspirin 325 Mg Enteric Coated Tablet PO 325 mg DAILY TIANA Administration Atorvastatin Calcium 40 mg 09/28/20 21:00 09/28/20 23:28 Atorvastatin Calcium 40 Mg Tab PO 40 mg HS TIANA Administration Carvedilol 6.25 mg 09/28/20 17:00 09/29/20 16:09 Carvedilol 6.25 Mg Tab PO 6.25 mg BID-WM TIANA Administration Ergocalciferol 1.25 mg 09/29/20 16:00 09/29/20 16:10 Ergocalciferol 1.25 Mg(50,000 Units) Cap PO 1.25 mg Q7DAYS@1600 TIANA Administration Heparin Sodium (Porcine) 0 units 09/28/20 23:15 09/29/20 03:53 Heparin 10,000 Units/ 10 Ml Vial SLOW IVP 4,000 unit ASDIR TIANA Administration Protocol Meropenem 1 gm/ Device 50 mls @ 100 mls/hr 09/28/20 23:59 09/29/20 11:53 IVPB 50 mls 1200,2359 TIANA Administration Sodium Chloride 1,000 mls @ 125 mls/hr 09/28/20 22:00 09/29/20 14:37 Normal Saline 0.9% IV 1,000 mls .Q8H TIANA Administration Heparin Sodium/Dextrose 500 mls @ 0 mls/hr 09/28/20 23:15 09/29/20 14:38 Heparin 25,000 Units/D5w IVPB 500 mls INF TIANA Administration Protocol Per Protocol Vancomycin HCl 2 gm/ Sodium 500 mls @ 250 mls/hr 09/29/20 01:00 09/29/20 02:00 Chloride IVPB 500 mls 0100 TIANA Administration - Exam General - other findings: responsive to questions Eye: PERRL, anicteric sclera ENT: normocephalic atraumatic, no oropharyngeal lesions ENT - other findings: BiPAP face mask in place Neck: supple, symmetric, no JVD, no thyromegaly, no lymphadenopathy Heart: RRR, no gallops, no rubs, normal peripheral pulses Heart - other findings: S1, S2 Respiratory: no ronchi, no tachypnea Respiratory - other findings: diminished bilat Gastrointestinal: soft, non-tender, non-distended, normal bowel sounds Gastrointestinal - other findings: morbid obesity Extremities: no cyanosis, 2+ LE edema Extremities - other findings: venous stasis changes BLE's Skin: normal turgor Neurological: cranial nerve grossly intact, no new deficit Musculoskeletal: generalized weakness Psychiatric: oriented to person, somnolent, lethargic Hosp A/P (1) Acute on chronic respiratory failure with hypoxia and hypercapnia Code(s): J96.21 - ACUTE AND CHRONIC RESPIRATORY FAILURE WITH HYPOXIA; J96.22 - ACUTE AND CHRONIC RESPIRATORY FAILURE WITH HYPERCAPNIA Status: Acute Plan: Continue BiPAP NIMV, titrate pulmonary support, may need consideration for trach (2) Non-ST elevation myocardial infarction (NSTEMI) Code(s): I21.4 - NON-ST ELEVATION (NSTEMI) MYOCARDIAL INFARCTION Status: Acute Plan: Continue ASA/Lipitor/Heparin gtt/Coreg, med mgmt, Cardiology consult (3) Acute diastolic CHF (congestive heart failure) Code(s): I50.31 - ACUTE DIASTOLIC (CONGESTIVE) HEART FAILURE Status: Acute Plan: EF 55-60%, likely diastolic in nature, continue supportive mgmt, serial I/O's, Daily weight (4) Acute kidney injury Code(s): N17.9 - ACUTE KIDNEY FAILURE, UNSPECIFIED Status: Acute Plan: Improved, avoid nephrotoxic meds and limit contrast exposure, low-volume IVF's (5) Hyperkalemia Code(s): E87.5 - HYPERKALEMIA Status: Acute Plan: Mild, improved (6) Transaminitis Code(s): R74.01 - ELEVATION OF LEVELS OF LIVER TRANSAMINASE LEVELS Status: Chronic Plan: Likely multifactorial including CHF/fatty liver (7) Obesity hypoventilation syndrome Code(s): E66.2 - MORBID (SEVERE) OBESITY WITH ALVEOLAR HYPOVENTILATION Status: Chronic - Plan continue antibiotics, administrator social welfare, respiratory therapy, DVT proph w/SCDs Continue pulmonary support ? need for tracheostomy Continue Meropenem Continue BiPAP NIMV Continue Heparin gtt Cardiology consult pending AM lab: CMP, CBC, Vanc trough
[2020-09-29] MEDS: Atorvastatin Calcium 40 MG TAB PO SCH (20:19)
--- NOTE | 2020-09-29 21:24 | CON ---
DATE OF CONSULTATION: 09/29/2020 INDICATION FOR CONSULTATION: This is a morbidly obese 54-year-old female, who apparently has sleep apnea and has been having respiratory difficulties and falling out of her chair due to morbid obesity. She has been unable to ambulate. We were asked to see her after she had some slight elevation of cardiac enzymes. HISTORY OF PRESENT ILLNESS: This is a very unfortunate 54-year-old female, who has morbid obesity, weighing over 400 pounds, who pretty much stays in a chair or the bed or a couch. She apparently has been having some falls off the sofa and x-rays did not show any significant abnormalities. She was seen early in the hospital, then discharged. Again, she had some repeat episodes of falling off the couch and returned to the emergency room again. She had no loss of consciousness. She denied any chest pain. She did undergo a cardiac catheterization with Dr. Augustin in 2007, which showed normal coronary arteries. In the emergency room, she was found to have chemistry abnormalities, which indicated acute renal insufficiency and also has had slight elevation of cardiac enzymes, which would not be unusual due to her respiratory problems, respiratory insufficiency, or respiratory failure as well as the fall. She denies any chest pain. Her EKG does not show any indication that she has any underlying ischemia. She did have some very nonspecific ST-segment changes in the inferior leads with T-wave inversions, but no ST-segment elevation was noted. At this time, she is on a BiPAP mask in the intensive care unit. She appears to be overall stable. She does answer questions, but she has apparently been very lethargic. PAST MEDICAL HISTORY: Significant for sleep apnea, which is obstructive sleep apnea; hypertension; osteoarthritis; and morbid obesity. She has had . She has had cholecystectomy, uterine ablation, and left knee surgery. SOCIAL HISTORY: She denies any history of alcohol or tobacco abuse. FAMILY HISTORY: Noncontributory for any early heart disease. MEDICATIONS: Include, 1. Coreg 25 mg b.i.d. 2. Flexeril 10 mg a day. 3. She takes ibuprofen also q.8 hours. We may need to consider stopping this. She is taking 800 mg. 4. She takes tramadol 50 mg. REVIEW OF SYSTEMS: Please refer to the notes already dictated. She has not had any significant complaints on the review of systems at least at this time from a cardiac standpoint except she does have some shortness of breath when she is off the BiPAP and her O2 saturations are significantly decreased. PHYSICAL EXAMINATION: GENERAL: Reveals a morbidly obese female. VITAL SIGNS: Blood pressure 132/77, heart rate is 60 and shows a sinus rhythm, respiratory rate is 18, and O2 saturation 95% but when she takes the mask off, her O2 sats drop down to the 70s. HEENT: Unremarkable except for morbid obesity. I cannot hear any bruits. CHEST: I did not hear any significant rales, rhonchi, or wheezing. It is difficult for her to take a deep breath. CARDIOVASCULAR: I did not hear any significant murmurs, heaves, thrills, bruits, or rubs. ABDOMEN: Shows a morbidly obese abdomen. I cannot palpate any tenderness or masses. EXTREMITIES: Show mild edema. Some of this may just be due to morbid obesity. She does have pedal pulses present. NEUROLOGIC: I cannot elicit any gross focal motor deficits. LABORATORY DATA: Her echocardiogram showed ejection fraction of 55% to 60% with moderately enlarged right ventricular cavity as well as right atrial dilatation. The left atrium was only mildly dilated. She had mild mitral valve regurgitation and she had mild tricuspid valve regurgitation. Her laboratory data showed a WBC yesterday morning of 22.8, just today is down to 16.5. Her hemoglobin is 13.2, hematocrit 41.6. Platelet count was decreased at 90,000, yesterday was 48,000. Her sodium is 140, potassium 4.9, chloride 101, bicarb is 30, and BUN was 57 with a creatinine of 1.88. This is actually improved from admission, which her BUN was 56 with a creatinine of 2.17. Blood sugar is 116 and calcium is low at 7.6. Her AST is elevated at 204 and ALT is also elevated at 133. Bilirubin is also elevated at 2.3. Her CK on admission was 1214 and then decreased down to 866, most likely this is due to her falls and her troponin I is also slightly elevated but is a very small percentage of the total CPK. Her troponin I on admission was 4.4, has continued to decrease downward, it is now 3.29 and most likely this reflects her damage as well as her renal insufficiency, which continues to have a slow decrease in the troponin I once it is slightly elevated. Her HDL was 33 and LDL was 62. There were opiates noted in the urine screen. Her most recent ABG showed a pH of 7.26; pCO2 of 72.9, which is elevated; O2 saturation was 94; and PO2 was 74.3. Her EKG as noted shows a normal sinus rhythm with T-wave inversions in 2, 3, and aVF as well as in V3 and V4, V5 and V6. IMPRESSION: 1. Morbidly obese female with respiratory failure due to her noncompliance with wearing her CPAP mask. She did tell me that it was broken and she had ordered a piece for it and a wrong piece was sent and so she needs to reorder the piece for her CPAP machine. This will be left up to the discrepancy of the wringer and setter. 2. Morbid obesity. Apparently, she has tried to lose weight in the past but has been unsuccessful. 3. Slight abnormalities of cardiac enzymes, which most likely indicate type 2 myocardial infarction due to demand ischemia associated with her respiratory failure. 4. Dilated right atrium and right ventricle, again associated with most likely her pulmonary problems. At this time, we would continue the medications. Her medications include Zofran, Tylenol, vancomycin. She has been on heparin. She is on Coreg 6.25 mg b.i.d. She is on hydralazine p.r.n., Lipitor 40 mg, Lasix was 20 mg IV b.i.d. She is on meropenem, aspirin 325 mg a day. At this time, I would continue at least a deep venous thrombosis prophylaxis of the heparin or could switch to Lovenox but most likely best be continue with heparin until the renal function has improved or returns to baseline. She denies any chest pain. She has previously undergone a cardiac catheterization in 2007, which showed normal coronaries. At this time, she is definitely a difficult patient to perform any type of intervention on for even evaluation of stress testing, but she has denied any chest pain and overall it appears that this is due to her respiratory failure as well as renal insufficiency and the falls, which have all increased her troponin I. At this time, I have no further recommendations for the patient and hopefully, she will improve and will be able to wear her BiPAP or CPAP mask. I will follow her from a distance as I have no further recommendations for this patient. Job ID: [id number]
[2020-09-30] MEDS: MEROPENEM 1 GM/50 ML 1 GM in Premix Bag 1 BAG IVPB SCH ×3 (00:14→23:48)
[2020-09-30] MEDS: Sodium Chloride 0.9% 1,000 ML IV SCH ×2 (00:24→09:25)
[2020-09-30] MEDS: Heparin 10,000 UNITS/ 10 ML VIAL SLOW IVP SCH (01:57)
[2020-09-30] MEDS: Acetaminophen 325 MG TAB PO PRN ×2 (04:07→20:04)
[2020-09-30 04:44] LABS: #Eosinphils 0.1 thou/uL (0.0-0.7); #Lymphocytes 1.4 thou/uL (1.20-3.40); #Neutrophils 8.4 thou/uL (1.40-6.50); %Basophils 0.2 % (0.0-1.0); %Eosinophils 0.9 % (0.0-10.0); %Lymphocytes 12.5 % (21.0-51.0); %Monocytes 8.9 % (0.0-10.0); %Neutrophils 77.6 % (42.0-75.0); Hemoglobin 12.3 g/dL (12.0-16.0); Mean Corpuscular HGB CONC 31.7 g/dL (32.0-36.0); Mean Corpuscular Hemoglobin 32.7 pg (27.0-31.0); Mean Platelet Volume 9.2 fL (7.4-10.4); Platelet Count 82 thou/uL (130-400); RBC Distribution Width 13.8 % (11.5-14.5); Red Blood Cell (RBC) Count 3.76 mill/uL (4.20-5.40); White Blood Cell (WBC) Count 10.8 thou/uL (4.8-10.8)
[2020-09-30 05:16] LABS: ALT (SGPT) 102 U/L (8-55); AST (SGOT) 122 U/L (5-34); Albumin 2.9 g/dL (3.5-5.0); Alkaline Phosphatase 68 U/L (40-110); Anion Gap 12 mmol/L (10-20); BUN (Urea Nitrogen) 46 mg/dL (9.8-20.1); Bilirubin, Direct 0.9 mg/dL (0.1-0.3); Bilirubin, Total 1.7 mg/dL (0.2-1.2); Calc. Creatinine Clearance 200 mL/min (70-130); Calcium 7.3 mg/dL (7.8-10.44); Carbon Dioxide 31 mmol/L (22-29); Chloride 101 mmol/L (98-107); Glucose 105 mg/dL (70-105); Potassium 4.6 mmol/L (3.5-5.1); Sodium 139 mmol/L (136-145)
[2020-09-30] MEDS: Furosemide 20 MG/2 ML VIAL SLOW IVP SCH ×2 (05:41→13:15)
[2020-09-30] MEDS: Carvedilol 6.25 MG TAB PO SCH ×2 (08:40→17:28)
[2020-09-30] MEDS: Heparin 25,000 units/D5W 500 ML IVPB SCH (08:45)
[2020-09-30 08:54] LABS: PTT 207.7 sec (22.9-36.1)
[2020-09-30] MEDS ORDERED: acetaZOLAMIDE Sodium 500 mg Vial IVP SCH (09:00)
[2020-09-30] MEDS: Aspirin 325 mg Enteric Coated Tablet PO SCH (09:25)
--- NOTE | 2020-09-30 09:37 | PDOC.NEPPN ---
- Subjective Encounter Date: 09/30/20 Subjective: Seen and examined. More awake and conversational. - Objective Vital Signs & Weight: Vital Signs (12 hours) Pulse Resp BP Pulse Ox 09/30/20 08:40 153/88 H 09/30/20 07:50 93 L 09/30/20 02:02 66 21 H 93 L Weight Weight 458 lb 12.511 oz Most Recent Monitor Data Heart Rate from ECG 64 NIBP 153/89 NIBP BP-Mean 110 Respiration from ECG 15 SpO2 91 I&O: 09/29/20 09/30/20 10/01/20 06:59 06:59 06:59 Intake Total 1615 3117 90 Output Total 694 1732 840 Balance 921 1385 -750 Result Diagrams: 09/30/20 04:16 09/30/20 04:16 Nephrology ROS - Medication Medications: Active Medications Generic Name Dose Route Start Last Admin Trade Name Freq PRN Reason Stop Dose Admin Acetaminophen 650 mg 09/28/20 13:54 09/30/20 04:07 Acetaminophen 325 Mg Tab PO 650 mg Q4H PRN Administration Headache/Fever/Mild Pain (1-3) Aspirin 325 mg 09/29/20 09:00 09/30/20 09:25 Aspirin 325 Mg Enteric Coated Tablet PO 325 mg DAILY TIANA Administration Atorvastatin Calcium 40 mg 09/28/20 21:00 09/29/20 20:19 Atorvastatin Calcium 40 Mg Tab PO 40 mg HS TIANA Administration Carvedilol 6.25 mg 09/28/20 17:00 09/30/20 08:40 Carvedilol 6.25 Mg Tab PO 6.25 mg BID-WM TIANA Administration Ergocalciferol 1.25 mg 09/29/20 16:00 09/29/20 16:10 Ergocalciferol 1.25 Mg(50,000 Units) Cap PO 1.25 mg Q7DAYS@1600 TIANA Administration Furosemide 20 mg 09/29/20 06:00 09/30/20 05:41 Furosemide 20 Mg/2 Ml Vial SLOW IVP 20 mg 0600,1400 TIANA Administration Heparin Sodium (Porcine) 0 units 09/28/20 23:15 09/30/20 01:57 Heparin 10,000 Units/ 10 Ml Vial SLOW IVP 4,000 unit ASDIR TIANA Administration Protocol Meropenem 1 gm/ Device 50 mls @ 100 mls/hr 09/28/20 23:59 09/30/20 00:14 IVPB 50 mls 1200,2359 TIANA Administration Sodium Chloride 1,000 mls @ 125 mls/hr 09/28/20 22:00 09/30/20 09:25 Normal Saline 0.9% IV 1,000 mls .Q8H TIANA Administration Heparin Sodium/Dextrose 500 mls @ 0 mls/hr 09/28/20 23:15 09/30/20 08:45 Heparin 25,000 Units/D5w IVPB 500 mls INF TIANA Administration Protocol Per Protocol Vancomycin HCl 2 gm/ Sodium 500 mls @ 250 mls/hr 09/29/20 01:00 09/30/20 02:03 Chloride IVPB 500 mls 0100 TIANA Administration - Exam General Appearance: awake alert General - other findings: morbidly obese Eye: anicteric sclera ENT: normocephalic atraumatic Neck: symmetric Respiratory - other findings: fair air entry bilaterally with some transmitted sound. Cardiovascular: RRR Gastrointestinal: soft, non-tender, non-distended, normal bowel sounds Gastrointestinal - other findings: morbidly obese Extremities: no edema Neurological: CN's grossly intact PSYCH: A&O x 3 Nephrology Results - Labs Result Diagrams: 09/30/20 04:16 09/30/20 04:16 Lab results: WBC 10.8 thou/uL (4.8-10.8) 09/30/20 04:16 Hgb 12.3 g/dL (12.0-16.0) 09/30/20 04:16 Hct 38.8 % (36.0-47.0) 09/30/20 04:16 MCV 103.0 fL (78.0-98.0) H 09/30/20 04:16 Plt Count 82 thou/uL (130-400) L 09/30/20 04:16 Neutrophils % 77.6 % (42.0-75.0) H 09/30/20 04:16 Band Neuts % (Manual) 5 % (5-11) 09/28/20 19:28 ABG pH 7.26 (7.35-7.45) L 09/29/20 14:31 ABG pCO2 72.9 mmHg (35.0-45.0) H* 09/29/20 14:31 ABG pO2 74.3 mmHg (80.0-100.0) L 09/29/20 14:31 Sodium 139 mmol/L (136-145) 09/30/20 04:16 Potassium 4.6 mmol/L (3.5-5.1) 09/30/20 04:16 Chloride 101 mmol/L (98-107) 09/30/20 04:16 Carbon Dioxide 31 mmol/L (22-29) H 09/30/20 04:16 BUN 46 mg/dL (9.8-20.1) H 09/30/20 04:16 Creatinine 1.00 mg/dL (0.6-1.1) 09/30/20 04:16 Glucose 105 mg/dL (70-105) 09/30/20 04:16 Calcium 7.3 mg/dL (7.8-10.44) L 09/30/20 04:16 Total Bilirubin 1.7 mg/dL (0.2-1.2) H 09/30/20 04:16 AST 122 U/L (5-34) H 09/30/20 04:16 ALT 102 U/L (8-55) H 09/30/20 04:16 Alkaline Phosphatase 68 U/L (40-110) 09/30/20 04:16 Creatine Kinase 866 U/L (29-168) H 09/29/20 03:31 CK-MB (CK-2) 29.9 ng/mL (0-6.6) H* 09/28/20 12:05 Troponin I 3.295 ng/mL (< 0.028) H* 09/28/20 21:41 B-Natriuretic Peptide 420.8 pg/mL (0-100) H 09/28/20 12:05 Serum Total Protein 6.0 g/dL (6.0-8.3) 09/30/20 04:16 Albumin 2.9 g/dL (3.5-5.0) L 09/30/20 04:16 Urine Ketones Negative mg/dL (Negative) 09/29/20 01:05 Urine Blood Negative (Negative) 09/29/20 01:05 Urine Nitrite Negative (Negative) 09/29/20 01:05 Ur Leukocyte Esterase 25 Juan/uL (Negative) A 09/29/20 01:05 Urine RBC 0-3 HPF (0-3) 12/31/20 01:05 Urine WBC 4-6 HPF (0-3) A 09/29/20 01:05 Ur Squamous Epith Cells 0-3 HPF (0-3) 09/29/20 01:05 Urine Bacteria None Seen HPF (None Seen) 09/29/20 01:05 Sodium 139 mmol/L (136-145) 09/30/20 04:16 Potassium 4.6 mmol/L (3.5-5.1) 09/30/20 04:16 Chloride 101 mmol/L (98-107) 09/30/20 04:16 Carbon Dioxide 31 mmol/L (22-29) H 09/30/20 04:16 Anion Gap 12 mmol/L (10-20) 09/30/20 04:16 BUN 46 mg/dL (9.8-20.1) H 09/30/20 04:16 Creatinine 1.00 mg/dL (0.6-1.1) 09/30/20 04:16 Glucose 105 mg/dL (70-105) 09/30/20 04:16 Calcium 7.3 mg/dL (7.8-10.44) L 09/30/20 04:16 Albumin 2.9 g/dL (3.5-5.0) L 09/30/20 04:16 Nephrology AP PN - Plan ASSESSMENT: Acute kidney injury.Due to hemodynamic factors related to dehydration and NSAID use, as well as rhabdomyolysis. Improved with creat down to 1. Metabolic alkalosis Hyperkalemia: resolved Hypocalcemia: Due vitamin D deficiency Vitamin D deficiency Morbid obesity with BRENDAN and obesity hypoventilation. Acute respiratory failure with hypercarbia. Acute respiratory acidosis with metabolic compensation. Transaminitis: Most likely due to dehydration and rhabdomyolysis. acute viral infection cannot be ruled out. Trending down with IVF. Mental status change of decreased responsiveness. Due to hypercarbia. Improving with BIPAP Elevated Troponin. Rhabdomyolysis +/- NSTEMI Plan Start Vitamin D and calcium supplementation. Decrease NS to 50 cc/hr Avoid nephrotoxic agents Get Vit D level. Replete if indicated. Other treatments to continue
--- NOTE | 2020-09-30 09:43 | PRG ---
DATE OF SERVICE: 09/30/2020 SUBJECTIVE: This morning, morbidly obese female, remains in the ICU. OBJECTIVE: VITAL SIGNS: Sats are 92% on BiPAP, blood pressure 164/92, pulse 116, temperature 98. GENERAL: Awake, responsive. CHEST: Decreased breath sounds. No wheezing. CARDIAC: Normal S1 and S2. No gallops. ABDOMEN: Massive. LABORATORY DATA: White count 12,000, H and H are 12 and 38, platelet count is low at 82,000. Her blood cultures are positive apparently for strep species, which should be pretty much sensitive to all the antibiotics. BUN and creatinine of 46 and 1.0. ASSESSMENT AND PLAN: Morbid obesity, respiratory failure, azotemia, metabolic alkalosis, sepsis syndrome. We can probably deescalate antibiotics once we have all the final cultures, low-dose Diamox for few days. Continue BiPAP. she may very well require a trach until she is able to lose weight. Pulmonary is going to follow while in the ICU. Job ID: [id number]
[2020-09-30] MEDS: AcetaZOLAMIDE ER 500 MG CAP PO SCH (10:52)
[2020-09-30] MEDS ORDERED: Sodium Chloride 0.9% 1,000 ML IV SCH (16:45)
--- NOTE | 2020-09-30 17:03 | PDOC.HOSPP ---
- Subjective Encounter Date: 09/30/20 Encounter Time: 17:00 Subjective: f/u for obesity hypoventilation syndrome/hypercapnea/ANNITA/Rhabdomyolysis/NSTEMI. Remains on - Objective Vital Signs & Weight: Vital Signs (12 hours) BP Pulse Ox 09/30/20 12:20 153/88 H 09/30/20 08:40 153/88 H 09/30/20 07:50 93 L Weight Weight 458 lb 12.511 oz Most Recent Monitor Data Heart Rate from ECG 63 NIBP 171/80 NIBP BP-Mean 110 Respiration from ECG 19 SpO2 92 I&O: 09/29/20 09/30/20 10/01/20 06:59 06:59 06:59 Intake Total 1615 3117 1300 Output Total 694 1732 2220 Balance 921 1385 -920 Result Diagrams: 09/30/20 04:16 09/30/20 04:16 Additional Labs: Microbiology 09/29/20 01:30 Urine henson catheter Urine Culture - Final NO GROWTH AT 36 HOURS 09/29/20 01:30 Urine henson catheter Urine Culture - Preliminary NO GROWTH AT 12 HOURS 09/28/20 21:41 Venous blood - Neck Blood Culture - Preliminary Streptococcus species 09/28/20 21:41 Venous blood - Neck Blood Culture - Preliminary Specimen has been received and culture in progress. No Growth to date. 09/28/20 01:20 Venous blood - Pending Blood Culture - Preliminary Coagulase Neg Staphylococcus Laboratory Tests 09/28/20 09/28/20 09/28/20 12:05 12:05 16:44 WBC 22.4 H Plt Count 96 L Potassium BUN Creatinine Total Bilirubin Direct Bilirubin AST ALT Creatine Kinase Troponin I 4.430 H* B-Natriuretic Peptide 420.8 H Influenza A RNA INAAT Influenza B RNA INAAT SARS-CoV-2 Rap RNA(RT-PCR) 09/28/20 09/28/20 09/28/20 16:44 19:28 20:05 WBC 22.8 H Plt Count 48 L Potassium BUN Creatinine Total Bilirubin Direct Bilirubin AST ALT Creatine Kinase Troponin I 4.039 H* 3.384 H* B-Natriuretic Peptide Influenza A RNA INAAT Influenza B RNA INAAT SARS-CoV-2 Rap RNA(RT-PCR) 09/28/20 09/28/20 09/28/20 20:20 21:41 21:41 WBC Plt Count Potassium 5.2 H BUN 56 H Creatinine 2.17 H Total Bilirubin Direct Bilirubin AST 237 H ALT 140 H Creatine Kinase 1214 H Troponin I 3.295 H* B-Natriuretic Peptide Influenza A RNA INAAT Not Detected Influenza B RNA INAAT Not Detected SARS-CoV-2 Rap RNA(RT-PCR) Not Detected 09/29/20 09/29/20 09/29/20 03:31 03:31 03:31 WBC 16.5 H Plt Count 90 L Potassium BUN Creatinine Total Bilirubin Direct Bilirubin AST 204 H ALT 133 H Creatine Kinase 866 H Troponin I B-Natriuretic Peptide Influenza A RNA INAAT Influenza B RNA INAAT SARS-CoV-2 Rap RNA(RT-PCR) 09/30/20 09/30/20 04:16 04:16 WBC Plt Count Potassium BUN Creatinine Total Bilirubin 1.7 H Direct Bilirubin 0.9 H AST 122 H ALT 102 H Creatine Kinase 278 H Troponin I B-Natriuretic Peptide Influenza A RNA INAAT Influenza B RNA INAAT SARS-CoV-2 Rap RNA(RT-PCR) EKG Reviewed by me: Yes (Tele - SR) Hospitalist ROS - Medication Medications: Active Medications Generic Name Dose Route Start Last Admin Trade Name Freq PRN Reason Stop Dose Admin Acetaminophen 650 mg 09/28/20 13:54 09/30/20 04:07 Acetaminophen 325 Mg Tab PO 650 mg Q4H PRN Administration Headache/Fever/Mild Pain (1-3) Acetazolamide 500 mg 09/30/20 09:00 09/30/20 10:52 Acetazolamide Er 500 Mg Cap PO 10/02/20 09:01 500 mg DAILY TIANA Administration Aspirin 325 mg 09/29/20 09:00 09/30/20 09:25 Aspirin 325 Mg Enteric Coated Tablet PO 325 mg DAILY TIANA Administration Atorvastatin Calcium 40 mg 09/28/20 21:00 09/29/20 20:19 Atorvastatin Calcium 40 Mg Tab PO 40 mg HS TIANA Administration Carvedilol 6.25 mg 09/28/20 17:00 09/30/20 08:40 Carvedilol 6.25 Mg Tab PO 6.25 mg BID-WM TIANA Administration Ergocalciferol 1.25 mg 09/29/20 16:00 09/29/20 16:10 Ergocalciferol 1.25 Mg(50,000 Units) Cap PO 1.25 mg Q7DAYS@1600 TIANA Administration Heparin Sodium (Porcine) 0 units 12/30/20 23:15 09/30/20 01:57 Heparin 10,000 Units/ 10 Ml Vial SLOW IVP 4,000 unit ASDIR TIANA Administration Protocol Hydralazine HCl 10 mg 09/28/20 21:45 09/30/20 12:20 Hydralazine 20 Mg/Ml Vial SLOW IVP 10 mg Q1H PRN Administration Blood Pressure Meropenem 1 gm/ Device 50 mls @ 100 mls/hr 09/28/20 23:59 09/30/20 12:24 IVPB 50 mls 1200,2359 TIANA Administration Heparin Sodium/Dextrose 500 mls @ 0 mls/hr 09/28/20 23:15 09/30/20 08:45 Heparin 25,000 Units/D5w IVPB 500 mls INF TIANA Administration Protocol Per Protocol Vancomycin HCl 2 gm/ Sodium 500 mls @ 250 mls/hr 09/29/20 01:00 09/30/20 02:03 Chloride IVPB 500 mls 0100 [facility] Administration - Exam General - other findings: somnolent, opens eyes to name, nods to questions Eye: PERRL, anicteric sclera ENT: normocephalic atraumatic, no oropharyngeal lesions Neck: supple, symmetric, no JVD, no thyromegaly, no lymphadenopathy Heart: RRR, no gallops, no rubs, normal peripheral pulses Heart - other findings: S1, S2 Respiratory - other findings: diminished in bases bilat Gastrointestinal: soft, non-tender, normal bowel sounds, no palpable masses Gastrointestinal - other findings: morbidly obese Extremities: no cyanosis, 2+ LE edema Skin: normal turgor Neurological: cranial nerve grossly intact, no new deficit Musculoskeletal: generalized weakness Psychiatric: somnolent, lethargic Hosp A/P (1) Acute on chronic respiratory failure with hypoxia and hypercapnia Code(s): J96.21 - ACUTE AND CHRONIC RESPIRATORY FAILURE WITH HYPOXIA; J96.22 - ACUTE AND CHRONIC RESPIRATORY FAILURE WITH HYPERCAPNIA Status: Acute Plan: Weaned off BiPAP tolerating O2 via NC, continue pulmonary supportive mgmt, Diamox (2) Non-ST elevation myocardial infarction (NSTEMI) Code(s): I21.4 - NON-ST ELEVATION (NSTEMI) MYOCARDIAL INFARCTION Status: Acute Plan: Start Lovenox, d/c Heparin gtt, Coreg 25mg BID (3) Acute diastolic CHF (congestive heart failure) Code(s): I50.31 - ACUTE DIASTOLIC (CONGESTIVE) HEART FAILURE Status: Acute (4) Acute kidney injury Code(s): N17.9 - ACUTE KIDNEY FAILURE, UNSPECIFIED Status: Acute Plan: Improved, continue supportive mgmt, avoid nephrotoxic meds and limit contrast (5) Hyperkalemia Code(s): E87.5 - HYPERKALEMIA Status: Acute Plan: Resolved (6) Transaminitis Code(s): R74.01 - ELEVATION OF LEVELS OF LIVER TRANSAMINASE LEVELS Status: Chronic Plan: Likely due to CHF and fatty liver dz (7) Obesity hypoventilation syndrome Code(s): E66.2 - MORBID (SEVERE) OBESITY WITH ALVEOLAR HYPOVENTILATION Status: Chronic - Plan plan discussed w/ family, continue antibiotics, social service manager, speech therapy, respiratory therapy, DVT proph w/SCDs Continue pulmonary support ? need for tracheostomy Continue Meropenem/Vancomycin Start Lovenox 40mg sc BID Continue BiPAP NIMV PRN CM for SNF options AM lab: CMP, CBC, Vanc trough
[2020-09-30] MEDS: Calcium Carbonate 500 MG TAB PO SCH (17:28)
[2020-09-30] MEDS: Atorvastatin Calcium 40 MG TAB PO SCH (20:04)
[2020-09-30] MEDS: Carvedilol 25 MG TAB PO SCH (20:05)
[2020-09-30] MEDS: Enoxaparin Sodium 40 MG/0.4 ML SYRINGE SC SCH (20:05)
[2020-09-30 23:50] LABS: Hemoglobin 12.3 g/dL (12.0-16.0); Platelet Count 77 thou/uL (130-400)
[2020-10-01 00:08] LABS: Vancomycin, Trough 13.5 ug/mL
[2020-10-01 04:53] LABS: #Eosinphils 0.1 thou/uL (0.0-0.7); #Monocytes 0.8 thou/uL (0.11-0.59); #Neutrophils 5.9 thou/uL (1.40-6.50); %Basophils 0.4 % (0.0-1.0); %Eosinophils 1.7 % (0.0-10.0); %Lymphocytes 12.7 % (21.0-51.0); %Monocytes 10.5 % (0.0-10.0); %Neutrophils 74.7 % (42.0-75.0); Hemoglobin 12.4 g/dL (12.0-16.0); Mean Corpuscular HGB CONC 32.9 g/dL (32.0-36.0); Mean Corpuscular Hemoglobin 33.5 pg (27.0-31.0); Mean Platelet Volume 9.4 fL (7.4-10.4); Platelet Count 82 thou/uL (130-400); RBC Distribution Width 13.9 % (11.5-14.5); Red Blood Cell (RBC) Count 3.71 mill/uL (4.20-5.40); White Blood Cell (WBC) Count 7.9 thou/uL (4.8-10.8)
[2020-10-01 05:04] LABS: ALT (SGPT) 87 U/L (8-55); AST (SGOT) 92 U/L (5-34); Albumin 2.9 g/dL (3.5-5.0); Alkaline Phosphatase 69 U/L (40-110); Anion Gap 12 mmol/L (10-20); BUN (Urea Nitrogen) 37 mg/dL (9.8-20.1); Bilirubin, Direct 0.8 mg/dL (0.1-0.3); Bilirubin, Total 1.5 mg/dL (0.2-1.2); CK (CPK) 167 U/L (29-168); Calc. Creatinine Clearance 243 mL/min (70-130); Calcium 7.7 mg/dL (7.8-10.44); Carbon Dioxide 30 mmol/L (22-29); Chloride 100 mmol/L (98-107); Glucose 88 mg/dL (70-105); Potassium 4.2 mmol/L (3.5-5.1); Protein, Total 5.9 g/dL (6.0-8.3); Sodium 138 mmol/L (136-145)
--- NOTE | 2020-10-01 07:49 | PDOC.NEPPN ---
- Subjective Encounter Date: 10/01/20 Subjective: No new problem. Clinically improved. conversational. - Objective Vital Signs & Weight: Vital Signs (12 hours) Pulse Resp Pulse Ox 10/01/20 00:32 59 L 21 H 92 L 09/30/20 20:00 93 L Weight Weight 452 lb 6.217 oz Most Recent Monitor Data Heart Rate from ECG 57 NIBP 162/90 NIBP BP-Mean 114 Respiration from ECG 15 SpO2 90 I&O: 09/30/20 10/01/20 10/02/20 06:59 06:59 06:59 Intake Total 3117 2142.0 Output Total 1732 3810 Balance 1385 -1668.0 Result Diagrams: 10/01/20 03:04 10/01/20 03:04 Nephrology ROS - Medication Medications: Active Medications Generic Name Dose Route Start Last Admin Trade Name Freq PRN Reason Stop Dose Admin Acetaminophen 650 mg 09/28/20 13:54 09/30/20 20:04 Acetaminophen 325 Mg Tab PO 650 mg Q4H PRN Administration Headache/Fever/Mild Pain (1-3) Acetazolamide 500 mg 09/30/20 09:00 09/30/20 10:52 Acetazolamide Er 500 Mg Cap PO 10/02/20 09:01 500 mg DAILY TIANA Administration Aspirin 325 mg 09/29/20 09:00 09/30/20 09:25 Aspirin 325 Mg Enteric Coated Tablet PO 325 mg DAILY TIANA Administration Atorvastatin Calcium 40 mg 09/28/20 21:00 09/30/20 20:04 Atorvastatin Calcium 40 Mg Tab PO 40 mg HS TIANA Administration Calcium Carbonate 500 mg 09/30/20 17:00 09/30/20 17:28 Calcium Carbonate 500 Mg Tab PO 500 mg BID-WM TIANA Administration Carvedilol 25 mg 09/30/20 21:00 09/30/20 20:05 Carvedilol 25 Mg Tab PO 25 mg BID TIANA Administration Enoxaparin Sodium 40 mg 09/30/20 21:00 09/30/20 20:05 Enoxaparin Sodium 40 Mg/0.4 Ml Syringe SC 40 mg 0900,2100 TIANA Administration Ergocalciferol 1.25 mg 09/29/20 16:00 09/29/20 16:10 Ergocalciferol 1.25 Mg(50,000 Units) Cap PO 1.25 mg Q7DAYS@1600 TIANA Administration Hydralazine HCl 10 mg 09/28/20 21:45 09/30/20 12:20 Hydralazine 20 Mg/Ml Vial SLOW IVP 10 mg Q1H PRN Administration Blood Pressure Meropenem 1 gm/ Device 50 mls @ 100 mls/hr 09/28/20 23:59 09/30/20 23:48 IVPB 50 mls 1200,2359 TIANA Administration Heparin Sodium/Dextrose 500 mls @ 0 mls/hr 09/28/20 23:15 09/30/20 08:45 Heparin 25,000 Units/D5w IVPB 500 mls INF TIANA Administration Protocol Per Protocol Vancomycin HCl 2 gm/ Sodium 500 mls @ 250 mls/hr 09/29/20 01:00 10/01/20 01:09 Chloride IVPB 500 mls 0100 TIANA Administration - Exam General Appearance: awake alert General - other findings: morbidly obese Eye: anicteric sclera ENT: normocephalic atraumatic Neck: symmetric Respiratory - other findings: fair air entry bilaterally Cardiovascular: RRR Gastrointestinal - other findings: morbidly obese and soft Extremities - other findings: huge legs but no obvious edema Neurological: CN's grossly intact, no focal deficits Musculoskeletal: generalized weakness PSYCH: A&O x 3 Nephrology Results - Labs Result Diagrams: 10/01/20 03:04 10/01/20 03:04 Lab results: WBC 7.9 thou/uL (4.8-10.8) 10/01/20 03:04 Hgb 12.4 g/dL (12.0-16.0) 10/01/20 03:04 Hct 37.8 % (36.0-47.0) 10/01/20 03:04 MCV 102.0 fL (78.0-98.0) H 10/01/20 03:04 Plt Count 82 thou/uL (130-400) L 10/01/20 03:04 Neutrophils % 74.7 % (42.0-75.0) 10/01/20 03:04 Band Neuts % (Manual) 5 % (5-11) 09/28/20 19:28 ABG pH 7.26 (7.35-7.45) L 09/29/20 14:31 ABG pCO2 72.9 mmHg (35.0-45.0) H* 09/29/20 14:31 ABG pO2 74.3 mmHg (80.0-100.0) L 09/29/20 14:31 Sodium 138 mmol/L (136-145) 10/01/20 03:04 Potassium 4.2 mmol/L (3.5-5.1) 10/01/20 03:04 Chloride 100 mmol/L (98-107) 10/01/20 03:04 Carbon Dioxide 30 mmol/L (22-29) H 10/01/20 03:04 BUN 37 mg/dL (9.8-20.1) H 10/01/20 03:04 Creatinine 0.85 mg/dL (0.6-1.1) 10/01/20 03:04 Glucose 88 mg/dL (70-105) 10/01/20 03:04 Calcium 7.7 mg/dL (7.8-10.44) L 10/01/20 03:04 Total Bilirubin 1.5 mg/dL (0.2-1.2) H 10/01/20 03:04 AST 92 U/L (5-34) H 10/01/20 03:04 ALT 87 U/L (8-55) H 10/01/20 03:04 Alkaline Phosphatase 69 U/L (40-110) 10/01/20 03:04 Creatine Kinase 167 U/L (29-168) 10/01/20 03:04 CK-MB (CK-2) 29.9 ng/mL (0-6.6) H* 09/28/20 12:05 Troponin I 3.295 ng/mL (< 0.028) H* 09/28/20 21:41 B-Natriuretic Peptide 420.8 pg/mL (0-100) H 09/28/20 12:05 Serum Total Protein 5.9 g/dL (6.0-8.3) L 10/01/20 03:04 Albumin 2.9 g/dL (3.5-5.0) L 10/01/20 03:04 Urine Ketones Negative mg/dL (Negative) 09/29/20 01:05 Urine Blood Negative (Negative) 09/29/20 01:05 Urine Nitrite Negative (Negative) 09/29/20 01:05 Ur Leukocyte Esterase 25 Juan/uL (Negative) A 09/29/20 01:05 Urine RBC 0-3 HPF (0-3) 09/29/20 01:05 Urine WBC 4-6 HPF (0-3) A 09/29/20 01:05 Ur Squamous Epith Cells 0-3 HPF (0-3) 09/29/20 01:05 Urine Bacteria None Seen HPF (None Seen) 09/29/20 01:05 Sodium 138 mmol/L (136-145) 10/01/20 03:04 Potassium 4.2 mmol/L (3.5-5.1) 10/01/20 03:04 Chloride 100 mmol/L (98-107) 10/01/20 03:04 Carbon Dioxide 30 mmol/L (22-29) H 10/01/20 03:04 Anion Gap 12 mmol/L (10-20) 10/01/20 03:04 BUN 37 mg/dL (9.8-20.1) H 10/01/20 03:04 Creatinine 0.85 mg/dL (0.6-1.1) 10/01/20 03:04 Glucose 88 mg/dL (70-105) 10/01/20 03:04 Calcium 7.7 mg/dL (7.8-10.44) L 10/01/20 03:04 Albumin 2.9 g/dL (3.5-5.0) L 10/01/20 03:04 Nephrology AP PN - Plan ASSESSMENT: Acute kidney injury.Due to hemodynamic factors related to dehydration and NSAID use, as well as rhabdomyolysis. Resolved Metabolic alkalosis Hyperkalemia: resolved Hypocalcemia: Due vitamin D deficiency Vitamin D deficiency Morbid obesity with BRENDAN and obesity hypoventilation. Acute respiratory failure with hypercarbia. Acute respiratory acidosis with metabolic compensation. Transaminitis: Most likely due to dehydration and rhabdomyolysis. acute viral infection cannot be ruled out. Trending down with IVF. Mental status change of decreased responsiveness. Due to hypercarbia. Improving with BIPAP Elevated Troponin. Rhabdomyolysis +/- NSTEMI Pl Start low dose amlodipine FOR BP control. DC IVF Continue Vitamin D and calcium supplementation. Avoid nephrotoxic agents Other treatments to continue Nephrology will sign off. Call for any question.
[2020-10-01] MEDS: Aspirin 325 mg Enteric Coated Tablet PO SCH (07:53)
[2020-10-01] MEDS: Amlodipine 5 MG TAB PO SCH (07:53)
[2020-10-01] MEDS: Enoxaparin Sodium 40 MG/0.4 ML SYRINGE SC SCH ×2 (07:53→20:07)
[2020-10-01] MEDS: Calcium Carbonate 500 MG TAB PO SCH ×2 (07:54→17:20)
[2020-10-01] MEDS: AcetaZOLAMIDE ER 500 MG CAP PO SCH (07:55)
[2020-10-01] MEDS: Carvedilol 25 MG TAB PO SCH ×2 (09:30→20:06)
--- NOTE | 2020-10-01 11:11 | EKG ---
Test Reason : Blood Pressure : / mmHG Vent. Rate : 088 BPM Atrial Rate : 088 BPM P-R Int : 166 ms QRS Dur : 092 ms QT Int : 366 ms P-R-T Axes : 031 004 -24 degrees QTc Int : 442 ms Normal sinus rhythm T wave abnormality, consider inferior ischemia Abnormal ECG Confirmed by CHANG STAFFORD DO ([id number]), design editor DEJAH GIRON ([id number]) on 10/01/2020 11:11:33 AM Referred By: Confirmed By:CHANG STAFFORD DO
[2020-10-01] MEDS: cefTRIAXone\\ROCEPHIN 1 GM in Sodium Chloride 0.9% 100 ML IVPB SCH (12:38)
--- NOTE | 2020-10-01 17:41 | PDOC.HOSPP ---
- Subjective Subjective: Pt was seen and examined. no acute event overnight. - Objective Vital Signs & Weight: Vital Signs (12 hours) Temp Pulse BP Pulse Ox 10/01/20 16:00 98.2 F 10/01/20 12:00 98.8 F 10/01/20 11:35 95 10/01/20 08:00 98.7 F 96 10/01/20 07:53 59 L 180/89 H Weight Weight 452 lb 6.217 oz Most Recent Monitor Data Heart Rate from ECG 63 NIBP 166/86 NIBP BP-Mean 112 Respiration from ECG 17 SpO2 93 I&O: 09/30/20 10/01/20 10/02/20 06:59 06:59 06:59 Intake Total 3117 2142.0 1188 Output Total 1732 3810 1450 Balance 1385 -1668.0 -262 Result Diagrams: 10/01/20 03:04 10/01/20 03:04 Hospitalist ROS - Medication Medications: Active Medications Generic Name Dose Route Start Last Admin Trade Name Freq PRN Reason Stop Dose Admin Acetaminophen 650 mg 09/28/20 13:54 09/30/20 20:04 Acetaminophen 325 Mg Tab PO 650 mg Q4H PRN Administration Headache/Fever/Mild Pain (1-3) Acetazolamide 500 mg 09/30/20 09:00 10/01/20 07:55 Acetazolamide Er 500 Mg Cap PO 10/02/20 09:01 500 mg DAILY TIANA Administration Amlodipine Besylate 2.5 mg 10/01/20 09:00 10/01/20 07:53 Amlodipine 5 Mg Tab PO 2.5 mg DAILY TIANA Administration Aspirin 325 mg 09/29/20 09:00 10/01/20 07:53 Aspirin 325 Mg Enteric Coated Tablet PO 325 mg DAILY TIANA Administration Atorvastatin Calcium 40 mg 09/28/20 21:00 09/30/20 20:04 Atorvastatin Calcium 40 Mg Tab PO 40 mg HS TIANA Administration Calcium Carbonate 500 mg 09/30/20 17:00 10/01/20 07:54 Calcium Carbonate 500 Mg Tab PO 500 mg BID-WM TIANA Administration Carvedilol 25 mg 09/30/20 21:00 10/01/20 09:30 Carvedilol 25 Mg Tab PO Not Given BID [facility] Enoxaparin Sodium 40 mg 09/30/20 21:00 10/01/20 07:53 Enoxaparin Sodium 40 Mg/0.4 Ml Syringe SC 40 mg 0900,2100 TIANA Administration Ergocalciferol 1.25 mg 09/29/20 16:00 09/29/20 16:10 Ergocalciferol 1.25 Mg(50,000 Units) Cap PO 1.25 mg Q7DAYS@1600 TIANA Administration Hydralazine HCl 10 mg 09/28/20 21:45 09/30/20 12:20 Hydralazine 20 Mg/Ml Vial SLOW IVP 10 mg Q1H PRN Administration Blood Pressure Ceftriaxone Sodium 1 gm/ 100 mls @ 200 mls/hr 10/01/20 09:00 10/01/20 12:38 Sodium Chloride IVPB 100 mls Q24HR TIANA Administration - Exam General Appearance: NAD Eye: PERRL ENT: normocephalic atraumatic Neck: supple Heart: RRR Respiratory: CTAB Gastrointestinal: soft Extremities: no cyanosis Skin: normal turgor Neurological: cranial nerve grossly intact Musculoskeletal: normal tone Hosp A/P - Plan (1) Acute on chronic respiratory failure with hypoxia and hypercapnia Code(s): J96.21 - ACUTE AND CHRONIC RESPIRATORY FAILURE WITH HYPOXIA; J96.22 - ACUTE AND CHRONIC RESPIRATORY FAILURE WITH HYPERCAPNIA Status: Acute Plan: --Weaned off BiPAP tolerating O2 via NC, continue pulmonary supportive mgmt, Diamox (2) Non-ST elevation myocardial infarction (NSTEMI) Code(s): I21.4 - NON-ST ELEVATION (NSTEMI) MYOCARDIAL INFARCTION Status: Acute Plan: --cont BB/Statin/ASA/Lovenox. Echo showed preserve EF. Appreciate Cardiology input. Med mgt (3) Acute diastolic CHF (congestive heart failure) Code(s): I50.31 - ACUTE DIASTOLIC (CONGESTIVE) HEART FAILURE Status: Acute (4) Acute kidney injury Code(s): N17.9 - ACUTE KIDNEY FAILURE, UNSPECIFIED Status: Acute Plan: --resolved. Cr normalized (5) Hyperkalemia Code(s): E87.5 - HYPERKALEMIA Status: Acute Plan: --Resolved (6) Transaminitis Code(s): R74.01 - ELEVATION OF LEVELS OF LIVER TRANSAMINASE LEVELS Status: Chr onic Plan: --Likely due to CHF and fatty liver dz, check acute hepatitis panel (7) Obesity hypoventilation syndrome Code(s): E66.2 - MORBID (SEVERE) OBESITY WITH ALVEOLAR HYPOVENTILATION Status: Chronic --cont BiBAP prn and bedtime. Pul is following. ?trach 8. Rhabdomyolysis --resolved.
[2020-10-01] MEDS: Acetaminophen 325 MG TAB PO PRN (19:07)
[2020-10-01] MEDS: Atorvastatin Calcium 40 MG TAB PO SCH (20:07)
--- NOTE | 2020-10-02 04:39 | PRG ---
DATE OF SERVICE: 10/01/2020 SUBJECTIVE: Anusha Allison is a morbidly obese female, was admitted to the ICU with a maximum temperature of 98, pulse 59, blood pressure 180/89, sats 90% on BiPAP. She is awake, responsive. I's and O's have been negative. OBJECTIVE: CHEST: No wheezing, no crackles. CARDIAC: Normal S1, S2. No gallops. ABDOMEN: No masses. LABORATORY DATA: White count 7000, lytes are normal. Bicarb is down to 30. ASSESSMENT AND PLAN: 1. Acute on chronic respiratory failure. 2. Morbid obesity. 3. Presumed sepsis . PLAN: 1. Deescalate antibiotics. 2. Continue aggressive PT, supportive care. DISPOSITION: As per Cardiology. Job ID: [id number]
[2020-10-02 04:44] LABS: #Eosinphils 0.3 thou/uL (0.0-0.7); #Lymphocytes 1.1 thou/uL (1.20-3.40); #Monocytes 0.9 thou/uL (0.11-0.59); #Neutrophils 5.6 thou/uL (1.40-6.50); %Basophils 0.5 % (0.0-1.0); %Eosinophils 3.4 % (0.0-10.0); %Lymphocytes 13.6 % (21.0-51.0); %Monocytes 11.6 % (0.0-10.0); %Neutrophils 70.9 % (42.0-75.0); Hemoglobin 12.5 g/dL (12.0-16.0); Mean Corpuscular HGB CONC 31.7 g/dL (32.0-36.0); Mean Corpuscular Hemoglobin 32.1 pg (27.0-31.0); Mean Platelet Volume 8.9 fL (7.4-10.4); Platelet Count 84 thou/uL (130-400); RBC Distribution Width 14.1 % (11.5-14.5); White Blood Cell (WBC) Count 7.9 thou/uL (4.8-10.8)
[2020-10-02 04:53] LABS: ALT (SGPT) 69 U/L (8-55); AST (SGOT) 66 U/L (5-34); Albumin 2.7 g/dL (3.5-5.0); Alkaline Phosphatase 64 U/L (40-110); Anion Gap 10 mmol/L (10-20); BUN (Urea Nitrogen) 30 mg/dL (9.8-20.1); Calc. Creatinine Clearance 245 mL/min (70-130); Calcium 8.4 mg/dL (7.8-10.44); Carbon Dioxide 29 mmol/L (22-29); Chloride 103 mmol/L (98-107); Globulin 3.2 g/dL (2.4-3.5); Glucose 122 mg/dL (70-105); Potassium 4.3 mmol/L (3.5-5.1); Protein, Total 5.9 g/dL (6.0-8.3); Sodium 138 mmol/L (136-145)
[2020-10-02 05:12] LABS: HBCM Index 0.06 S/CO (0-0.79); HBSAg Index 0.21 S/CO (0-0.99); Hep A IgM AB Non-Reactive (NonReactive); Hep A IgM S/CO 0.14 S/CO (0-0.79); Hep B Surf Ag Non-Reactive S/CO (NonReactive); Hep C IgG Ab Non-Reactive (NonReactive); Hep C Index 0.13 S/CO (0-0.79); Hepatitis B Core IgM Abs Non-Reactive (NonReactive)
[2020-10-02] MEDS: Calcium Carbonate 500 MG TAB PO SCH ×2 (08:25→18:18)
[2020-10-02] MEDS: Amlodipine 5 MG TAB PO SCH (08:40)
[2020-10-02] MEDS: Enoxaparin Sodium 40 MG/0.4 ML SYRINGE SC SCH ×2 (08:40→21:50)
[2020-10-02] MEDS: Aspirin 325 mg Enteric Coated Tablet PO SCH (08:40)
[2020-10-02] MEDS: AcetaZOLAMIDE ER 500 MG CAP PO SCH (08:42)
[2020-10-02] MEDS: Carvedilol 25 MG TAB PO SCH (08:45)
[2020-10-02] MEDS: cefTRIAXone\\ROCEPHIN 1 GM in Sodium Chloride 0.9% 100 ML IVPB SCH (08:48)
--- NOTE | 2020-10-02 08:55 | PRG ---
DATE OF SERVICE: 10/02/2020 SUBJECTIVE: Anusha Allison was off the BiPAP all night. OBJECTIVE: VITAL SIGNS: She has a nasal O2 with sats of 93%, pulse , blood pressure 160/82. CHEST: No wheezing. No crackles. CARDIAC: Normal S1 and S2. No gallops. ABDOMEN: No masses. LABORATORY DATA: Liver function slightly elevated, AST 66, otherwise labs unremarkable. ASSESSMENT: Respiratory failure, morbid obesity, sepsis, diastolic dysfunction. PLAN: She can be transferred to a monitored bed when once available. Otherwise, continue antibiotics, supportive care, PT. Job ID: [id number]
--- NOTE | 2020-10-02 14:38 | PDOC.HOSPP ---
- Subjective Subjective: Patient was seen examined at bedside. No acute events overnight. She has been weaned off on BiPAP all night. Nursing staff report that she is slightly bradycardic overnight. Her Coreg was increased to 25 twice daily few days ago. - Objective Vital Signs & Weight: Vital Signs (12 hours) Temp Pulse BP Pulse Ox 10/02/20 08:40 62 139/84 10/02/20 08:00 97.7 F 10/02/20 07:24 93 L 10/02/20 05:00 98.0 F Weight Weight 454 lb 9.491 oz Most Recent Monitor Data Heart Rate from ECG 62 NIBP 159/107 NIBP BP-Mean 124 Respiration from ECG 25 SpO2 96 I&O: 10/01/20 10/02/20 10/03/20 06:59 06:59 06:59 Intake Total 2142.0 1818 240 Output Total 3810 2855 570 Balance -1668.0 -1037 -330 Result Diagrams: 10/02/20 03:21 10/02/20 03:21 Radiology Reviewed by me: Yes EKG Reviewed by me: Yes Hospitalist ROS - Medication Medications: Active Medications Generic Name Dose Route Start Last Admin Trade Name Freq PRN Reason Stop Dose Admin Acetaminophen 650 mg 09/28/20 13:54 10/01/20 19:07 Acetaminophen 325 Mg Tab PO 650 mg Q4H PRN Administration Headache/Fever/Mild Pain (1-3) Aspirin 325 mg 09/29/20 09:00 10/02/20 08:40 Aspirin 325 Mg Enteric Coated Tablet PO 325 mg DAILY TIANA Administration Atorvastatin Calcium 40 mg 09/28/20 21:00 10/01/20 20:07 Atorvastatin Calcium 40 Mg Tab PO 40 mg HS TIANA Administration Calcium Carbonate 500 mg 09/30/20 17:00 10/02/20 08:25 Calcium Carbonate 500 Mg Tab PO 500 mg BID-WM TIANA Administration Enoxaparin Sodium 40 mg 09/30/20 21:00 10/02/20 08:40 Enoxaparin Sodium 40 Mg/0.4 Ml Syringe SC 40 mg 0900,2100 TIANA Administration Ergocalciferol 1.25 mg 09/29/20 16:00 09/29/20 16:10 Ergocalciferol 1.25 Mg(50,000 Units) Cap PO 1.25 mg Q7DAYS@1600 TIANA Administration Hydralazine HCl 10 mg 09/28/20 21:45 09/30/20 12:20 Hydralazine 20 Mg/Ml Vial SLOW IVP 10 mg Q1H PRN Administration Blood Pressure Ceftriaxone Sodium 1 gm/ 100 mls @ 200 mls/hr 10/01/20 09:00 10/02/20 08:48 Sodium Chloride IVPB 100 mls Q24HR TIANA Administration - Exam General Appearance: NAD Eye: PERRL ENT: normocephalic atraumatic Neck: supple Heart: RRR Respiratory: CTAB Gastrointestinal: soft Extremities: no cyanosis Skin: normal turgor Neurological: cranial nerve grossly intact Musculoskeletal: normal tone Psychiatric: normal affect, normal behavior Hosp A/P - Plan (1) Acute on chronic respiratory failure with hypoxia and hypercapnia Code(s): J96.21 - ACUTE AND CHRONIC RESPIRATORY FAILURE WITH HYPOXIA; J96.22 - ACUTE AND CHRONIC RESPIRATORY FAILURE WITH HYPERCAPNIA Status: Acute Plan: --Weaned off BiPAP tolerating O2 via NC. Pulmonology is following. She was given 3 doses of Diamox. --PT eval. transfer to tele (2) Non-ST elevation myocardial infarction (NSTEMI) Code(s): I21.4 - NON-ST ELEVATION (NSTEMI) MYOCARDIAL INFARCTION Status: Acute Plan: --cont Statin/ASA/Lovenox. Echo showed preserve EF. Appreciate Cardiology input. Med mgt --decr Coreg d/t bradycardia - cont tele monitor (3) Acute diastolic CHF (congestive heart failure) Code(s): I50.31 - ACUTE DIASTOLIC (CONGESTIVE) HEART FAILURE Status: Acute --EF 55%, appears euvolemic. Add low dose PO Lasix for dependent edema. (4) Acute kidney injury Code(s): N17.9 - ACUTE KIDNEY FAILURE, UNSPECIFIED Status: Acute Plan: --resolved. Cr normalized. Avoid NSAIDs. (5) Hyperkalemia Code(s): E87.5 - HYPERKALEMIA Status: Acute Plan: --Resolved (6) Transaminitis Code(s): R74.01 - ELEVATION OF LEVELS OF LIVER TRANSAMINASE LEVELS Status: Chronic Plan: --Likely due to CHF and fatty liver dz, acute hep panel negative. LFT trending down. follow up as outpatient. (7) Obesity hypoventilation syndrome Code(s): E66.2 - MORBID (SEVERE) OBESITY WITH ALVEOLAR HYPOVENTILATION Status: Chronic --cont BiBAP prn and bedtime. Pul is following. ?trach. She has CPAP as home, pending parts. (8) Rhabdomyolysis --resolved. CK normalized. Pt is on statin therapy. (9). Morbid Obesity with BMI 75.6 --chronically debilitated, get around with a wheelchair at home (10) Positive Blood culture - question of contaminants --will cont to complete 1 week of IV abx, 10/04/20
[2020-10-02] MEDS ORDERED: Sodium Chloride 0.9% 10 ML ONE (21:29)
[2020-10-02] MEDS: Atorvastatin Calcium 40 MG TAB PO SCH (21:48)
[2020-10-02] MEDS: Carvedilol 6.25 MG TAB PO SCH (21:49)
[2020-10-02 23:46] LABS: Hemoglobin 12.9 g/dL (12.0-16.0); Platelet Count 92 thou/uL (130-400)
[2020-10-03] MEDS: Calcium Carbonate 500 MG TAB PO SCH ×2 (10:08→17:17)
[2020-10-03] MEDS: Aspirin 325 mg Enteric Coated Tablet PO SCH (10:08)
[2020-10-03] MEDS: Carvedilol 6.25 MG TAB PO SCH ×2 (10:08→21:22)
[2020-10-03] MEDS: cefTRIAXone\\ROCEPHIN 1 GM in Sodium Chloride 0.9% 100 ML IVPB SCH (10:08)
[2020-10-03] MEDS: Enoxaparin Sodium 40 MG/0.4 ML SYRINGE SC SCH ×2 (10:08→21:22)
[2020-10-03] MEDS: Amlodipine 5 MG TAB PO SCH (10:08)
[2020-10-03] MEDS: Furosemide 20 MG TAB PO SCH (10:09)
[2020-10-03] MEDS: Sodium Chloride 0.9% 1,000 ML IV SCH (13:13)
--- NOTE | 2020-10-03 14:38 | PDOC.HOSPP ---
- Subjective Subjective: states she is still weak and is not able to get around to care for herself at home. I have discussed with her mother at bedside, who lives next to her. - Objective Vital Signs & Weight: Vital Signs (12 hours) Temp Pulse Resp BP BP BP BP 10/03/20 11:24 97.5 F L 65 12 133/68 10/03/20 10:08 65 137/74 10/03/20 09:25 129/60 132/63 10/03/20 07:15 98.2 F 65 18 133/66 10/03/20 04:15 Pulse Ox Pulse Ox Pulse Ox 10/03/20 11:24 100 10/03/20 10:08 10/03/20 09:25 99 100 10/03/20 07:15 97 10/03/20 04:15 97 Weight Weight 445 lb Most Recent Monitor Data Heart Rate from ECG 62 NIBP 159/107 NIBP BP-Mean 124 Respiration from ECG 25 SpO2 96 I&O: 10/02/20 10/03/20 10/04/20 06:59 06:59 06:59 Intake Total 1818 390 Output Total 5185 2620 600 [facility] -1037 -2230 -600 Result Diagrams: 10/02/20 23:18 10/02/20 03:21 Radiology Reviewed by me: Yes EKG Reviewed by me: Yes Hospitalist ROS - Medication Medications: Active Medications Generic Name Dose Route Start Last Admin Trade Name Freq PRN Reason Stop Dose Admin Acetaminophen 650 mg 09/28/20 13:54 10/01/20 19:07 Acetaminophen 325 Mg Tab PO 650 mg Q4H PRN Administration Headache/Fever/Mild Pain (1-3) Amlodipine Besylate 5 mg 10/03/20 09:00 10/03/20 10:08 Amlodipine 5 Mg Tab PO 5 mg DAILY TIANA Administration Aspirin 325 mg 09/29/20 09:00 10/03/20 10:08 Aspirin 325 Mg Enteric Coated Tablet PO 325 mg DAILY TIANA Administration Atorvastatin Calcium 40 mg 09/28/20 21:00 10/02/20 21:48 Atorvastatin Calcium 40 Mg Tab PO 40 mg HS TIANA Administration Calcium Carbonate 500 mg 09/30/20 17:00 10/03/20 10:08 Calcium Carbonate 500 Mg Tab PO 500 mg BID-WM TIANA Administration Carvedilol 6.25 mg 10/02/20 21:00 10/03/20 10:08 Carvedilol 6.25 Mg Tab PO 6.25 mg BID TIANA Administration Enoxaparin Sodium 40 mg 09/30/20 21:00 10/03/20 10:08 Enoxaparin Sodium 40 Mg/0.4 Ml Syringe SC 40 mg 0900,2100 TIANA Administration Ergocalciferol 1.25 mg 09/29/20 16:00 09/29/20 16:10 Ergocalciferol 1.25 Mg(50,000 Units) Cap PO 1.25 mg Q7DAYS@1600 TIANA Administration Furosemide 20 mg 10/03/20 09:00 10/03/20 10:09 Furosemide 20 Mg Tab PO 20 mg DAILY TIANA Administration Hydralazine HCl 10 mg 09/28/20 21:45 09/30/20 12:20 Hydralazine 20 Mg/Ml Vial SLOW IVP 10 mg Q1H PRN Administration Blood Pressure Ceftriaxone Sodium 1 gm/ 100 mls @ 200 mls/hr 10/01/20 09:00 10/03/20 10:08 Sodium Chloride IVPB 100 mls Q24HR TIANA Administration - Exam General Appearance: NAD Eye: PERRL ENT: normocephalic atraumatic Neck: supple Heart: RRR, no murmur Respiratory: CTAB, no wheezes Gastrointestinal: soft, non-tender Extremities: no cyanosis Skin: normal turgor Musculoskeletal: normal tone, normal strength, generalized weakness Psychiatric: normal affect, normal behavior Hosp A/P - Plan (1) Acute on chronic respiratory failure with hypoxia and hypercapnia Code(s): J96.21 - ACUTE AND CHRONIC RESPIRATORY FAILURE WITH HYPOXIA; J96.22 - ACUTE AND CHRONIC RESPIRATORY FAILURE WITH HYPERCAPNIA Status: Acute Plan: --Weaned off BiPAP, tolerating O2 via NC. Pulmonology is following. She was given 3 doses of Diamox. --PT eval. --CM consult for possible placement (2) Non-ST elevation myocardial infarction (NSTEMI) Code(s): I21.4 - NON-ST ELEVATION (NSTEMI) MYOCARDIAL INFARCTION Status: Acute Plan: --cont Statin/ASA/Lovenox. Echo showed preserve EF. Appreciate Cardiology input. Med mgt --decr Coreg d/t bradycardia - cont tele monitor (3) Acute diastolic CHF (congestive heart failure) Code(s): I50.31 - ACUTE DIASTOLIC (CONGESTIVE) HEART FAILURE Status: Acute --EF 55%, appears euvolemic. Add low dose PO Lasix for dependent edema. (4) Acute kidney injury Code(s): N17.9 - ACUTE KIDNEY FAILURE, UNSPECIFIED Status: Acute Plan: --resolved. Cr normalized. Avoid NSAIDs. (5) Hyperkalemia Code(s): E87.5 - HYPERKALEMIA Status: Acute Plan: --Resolved (6) Transaminitis Code(s): R74.01 - ELEVATION OF LEVELS OF LIVER TRANSAMINASE LEVELS Status: Chronic Plan: --Likely due to CHF and fatty liver dz, acute hep panel negative. LFT trending down. follow up as outpatient. (7) Obesity hypoventilation syndrome Code(s): E66.2 - MORBID (SEVERE) OBESITY WITH ALVEOLAR HYPOVENTILATION Status: Chronic --cont BiBAP prn and bedtime. Pul is following. ?trach. She has CPAP as home, pending parts. (8) Rhabdomyolysis --resolved. CK normalized. Pt is on statin therapy. (9). Morbid Obesity with BMI 75.6 --chronically debilitated, get around with a wheelchair at home (10) Positive Blood culture - question of contaminants --will cont to complete 1 week of IV abx, 10/04/20
[2020-10-03] MEDS ORDERED: Sodium Chloride 0.9% 10 ML ONE (21:08)
[2020-10-03] MEDS: Atorvastatin Calcium 40 MG TAB PO SCH (21:22)
[2020-10-04 04:11] LABS: #Basophils 0.1 thou/uL (0.0-0.2); #Eosinphils 0.4 thou/uL (0.0-0.7); #Lymphocytes 1.1 thou/uL (1.20-3.40); #Monocytes 0.9 thou/uL (0.11-0.59); #Neutrophils 5.8 thou/uL (1.40-6.50); %Basophils 0.6 % (0.0-1.0); %Eosinophils 5.4 % (0.0-10.0); %Lymphocytes 13.5 % (21.0-51.0); %Monocytes 10.9 % (0.0-10.0); %Neutrophils 69.6 % (42.0-75.0); Hemoglobin 12.7 g/dL (12.0-16.0); Mean Corpuscular HGB CONC 31.7 g/dL (32.0-36.0); Mean Corpuscular Hemoglobin 31.6 pg (27.0-31.0); Mean Corpuscular Volume 99.9 fL (78.0-98.0); Platelet Count 102 thou/uL (130-400); RBC Distribution Width 14.1 % (11.5-14.5); Red Blood Cell (RBC) Count 4.02 mill/uL (4.20-5.40); White Blood Cell (WBC) Count 8.3 thou/uL (4.8-10.8)
[2020-10-04 04:19] LABS: ALT (SGPT) 52 U/L (8-55); AST (SGOT) 49 U/L (5-34); Albumin 2.7 g/dL (3.5-5.0); Alkaline Phosphatase 62 U/L (40-110); Anion Gap 12 mmol/L (10-20); BUN (Urea Nitrogen) 30 mg/dL (9.8-20.1); Bilirubin, Total 1.2 mg/dL (0.2-1.2); Calc. Creatinine Clearance 263 mL/min (70-130); Carbon Dioxide 26 mmol/L (22-29); Chloride 105 mmol/L (98-107); Globulin 3.3 g/dL (2.4-3.5); Glucose 114 mg/dL (70-105); Potassium 4.2 mmol/L (3.5-5.1); Sodium 139 mmol/L (136-145)
[2020-10-04] MEDS: Amlodipine 5 MG TAB PO SCH ×2 (09:18→21:51)
[2020-10-04] MEDS: Calcium Carbonate 500 MG TAB PO SCH ×2 (09:18→17:21)
[2020-10-04] MEDS: Carvedilol 6.25 MG TAB PO SCH ×2 (09:18→21:51)
[2020-10-04] MEDS: Aspirin 325 mg Enteric Coated Tablet PO SCH (09:18)
[2020-10-04] MEDS: Furosemide 20 MG TAB PO SCH (09:19)
[2020-10-04] MEDS: Enoxaparin Sodium 40 MG/0.4 ML SYRINGE SC SCH ×2 (09:19→21:51)
[2020-10-04] MEDS: cefTRIAXone\\ROCEPHIN 1 GM in Sodium Chloride 0.9% 100 ML IVPB SCH (09:27)
--- NOTE | 2020-10-04 11:41 | RAD ---
PORTABLE CHEST: Date: 10/04/2020 HISTORY: Shortness of breath. COMPARISON: 09/28/2020 exam. FINDINGS: Heart size is enlarged. Aorta is tortuous. Lungs appear clear of any infiltrates. IMPRESSION: Cardiomegaly. No overt failure. POS: [facility]
--- NOTE | 2020-10-04 14:07 | PQF ---
CLINICAL DOCUMENTATION CLARIFICATION FORM: Dear Dr. Moore Date: 10/04/2020 Please exercise your independent, professional judgment in responding to the clarification form. Clinical indicators are provided on the bottom of this form for your review. Please check appropriate box(es): [ x ] Sepsis due to: __STAPH BACTEREMIA [ ] Severe sepsis with associated acute organ dysfunction: [ ] Acute Respiratory Failure [ ] Acute Kidney injury w/o ATN [ ] Additional/Other: please specify: [ ] Localized infection without sepsis [ ] Other diagnosis [ ] Unable to determine In addition, please specify: Present on Admission (POA): [ x] Yes [ ] No [ ] Unable to determine For continuity of documentation, please document condition throughout progress notes and discharge summary. Thank You. To be completed by CDI/Coding staff for physician review: CLINICAL INDICATORS - SIGNS / SYMPTOMS / LABS / RESULTS AND LOCATION IN MR *H&P 09/28 (Anish) ED course: BP 156/97, Pulse 85, Resp. 25, O2 sat 95 on 3L oxygen *09/30 pn (Grant) Lab. Her blood cultures are positive apparently for strep species. A/P: sepsis syndrome *10/02 pn (Grant) Assessment: Respiratory failure, morbid obesity, sepsis, diastolic dysfunction. *10/02 pn (Le) Plan: Positive blood culture - question of contaminants RISK FACTORS / RESULTS AND LOCATION IN MR *H&P 09/28 (Anish) HPI: hx of morbid obesity. A/P: NSTEMI, ANNITA, CHF *09/29 pn (Marc) A/P: Acute on chronic respiratory failure with hypoxia and hypercapnia. Obesity hypoventilation syndrome *09/30 pn (Grant) Lab. Her blood cultures are positive apparently for strep species. TREATMENTS / RESULTS AND LOCATION IN MR *09/29 pn (Marc) Plan: Cont. Meropenem. Cont. Bipap NIMV *MAR: Order 1/2: Rocephin 1 gm IV q 24 hr Clinical indication: Bacteremia. Thank you, Nelly Dumont RN, [email or web address] This is a permanent part of the Medical Record [facility]
--- NOTE | 2020-10-04 15:31 | PRG ---
DATE OF SERVICE: 10/04/2020 SUBJECTIVE: Ms. Allison is clinically changed very little. She is still bedridden. She is in no distress. She is not as somnolent as she was on admission. She says she is still wearing BiPAP here in the hospital at night. OBJECTIVE: LUNGS: Clear and distant. HEART: Regular rhythm. ABDOMEN: Soft. IMAGING: Chest x-ray today shows no new infiltrates. IMPRESSION: 1. Life-threatening obesity. 2. Obesity hypoventilation syndrome. 3. Medical noncompliance with CPAP. She gave me multiple different excuses as to why she was not wearing CPAP. She initially told me it was a mask problem and when I told her if she could bring her CPAP up here, we could use the hospital mask, she replied that she thinks she threw her CPAP away. I have explained to her that her life depends on this. Can either after buy CPAP/BiPAP machine or get an another sleep study sometime in the near future as an urgent work in case of a cancellation. We can continue with empiric BiPAP while she is here whenever she sleeps. This does not solve the problems when she goes to some type of long-term care facility. Her prognosis is quite poor. Job ID: [id number] [facility]
--- NOTE | 2020-10-04 16:01 | PDOC.HOSPP ---
- Subjective Subjective: Seen examined at bedside. She is little more somnolent today than she was before. It has been ongoing issue with regard to her CPAP. Blood pressures elevated. - Objective Vital Signs & Weight: Vital Signs (12 hours) Temp Pulse Resp BP Pulse Ox 10/04/20 15:40 98.6 F 71 20 187/98 H 98 10/04/20 12:06 18 93 L 10/04/20 11:07 99.3 F 73 163/77 H 10/04/20 08:19 98.5 F 80 19 127/66 97 Weight Weight 440 lb Most Recent Monitor Data Heart Rate from ECG 62 NIBP 159/107 NIBP BP-Mean 124 Respiration from ECG 25 SpO2 96 I&O: 10/03/20 10/04/20 10/05/20 06:59 06:59 06:59 Intake Total 390 Output Total 2620 600 Balance -2230 -600 Result Diagrams: 10/04/20 03:41 10/04/20 03:41 Radiology Reviewed by me: Yes EKG Reviewed by me: Yes Hospitalist ROS - Medication Medications: Active Medications Generic Name Dose Route Start Last Admin Trade Name Freq PRN Reason Stop Dose Admin Acetaminophen 650 mg 09/28/20 13:54 10/01/20 19:07 Acetaminophen 325 Mg Tab PO 650 mg Q4H PRN Administration Headache/Fever/Mild Pain (1-3) Aspirin 325 mg 09/29/20 09:00 10/04/20 09:18 Aspirin 325 Mg Enteric Coated Tablet PO 325 mg DAILY TIANA Administration Atorvastatin Calcium 40 mg 09/28/20 21:00 10/03/20 21:22 Atorvastatin Calcium 40 Mg Tab PO 40 mg HS TIANA Administration Bisacodyl 10 mg 09/28/20 13:54 10/04/20 12:55 Bisacodyl 5 Mg Tab PO 10 mg DAILYPRN PRN Administration Constipation Calcium Carbonate 500 mg 09/30/20 17:00 10/04/20 09:18 Calcium Carbonate 500 Mg Tab PO 500 mg BID-WM TIANA Administration Carvedilol 6.25 mg 10/02/20 21:00 10/04/20 09:18 Carvedilol 6.25 Mg Tab PO 6.25 mg BID TIANA Administration Enoxaparin Sodium 40 mg 09/30/20 21:00 10/04/20 09:19 Enoxaparin Sodium 40 Mg/0.4 Ml Syringe SC 40 mg 0900,2100 TIANA Administration Ergocalciferol 1.25 mg 09/29/20 16:00 09/29/20 16:10 Ergocalciferol 1.25 Mg(50,000 Units) Cap PO 1.25 mg Q7DAYS@1600 TIANA Administration Furosemide 20 mg 10/03/20 09:00 10/04/20 09:19 Furosemide 20 Mg Tab PO 20 mg DAILY TIANA Administration Hydralazine HCl 10 mg 09/28/20 21:45 09/30/20 12:20 Hydralazine 20 Mg/Ml Vial SLOW IVP 10 mg Q1H PRN Administration Blood Pressure Ceftriaxone Sodium 1 gm/ 100 mls @ 200 mls/hr 10/01/20 09:00 10/04/20 09:27 Sodium Chloride IVPB 100 mls Q24HR TIANA Administration - Exam General Appearance: NAD Eye: PERRL ENT: normocephalic atraumatic Neck: supple Heart: RRR Respiratory: CTAB Extremities: no cyanosis Skin: normal turgor Psychiatric: A&O x 3, somnolent Hosp A/P - Plan (1) Acute on chronic respiratory failure with hypoxia and hypercapnia Code(s): J96.21 - ACUTE AND CHRONIC RESPIRATORY FAILURE WITH HYPOXIA; J96.22 - ACUTE AND CHRONIC RESPIRATORY FAILURE WITH HYPERCAPNIA Status: Acute Plan: --Cont BiBAP at bedtime and prn. Pulmonology is following. She was given 3 doses of Diamox. --PT eval. --CM consult for possible placement. Her obesity hypoventilation syndrome/noncompliant with CPAP is going to be ongoing and main issue. (2) Non-ST elevation myocardial infarction (NSTEMI) Code(s): I21.4 - NON-ST ELEVATION (NSTEMI) MYOCARDIAL INFARCTION Status: Acute Plan: --cont Statin/ASA/Lovenox. Echo showed preserve EF. Appreciate Cardiology input. Med mgt --decr Coreg d/t bradycardia - cont tele monitor (3) Acute diastolic CHF (congestive heart failure) Code(s): I50.31 - ACUTE DIASTOLIC (CONGESTIVE) HEART FAILURE Status: Acute --EF 55%, appears euvolemic. Add low dose PO Lasix for dependent edema. (4) Acute kidney injury Code(s): N17.9 - ACUTE KIDNEY FAILURE, UNSPECIFIED Status: Acute Plan: --resolved. Cr normalized. Avoid NSAIDs. (5) Hyperkalemia Code(s): E87.5 - HYPERKALEMIA Status: Acute Plan: --Resolved (6) Transaminitis Code(s): R74.01 - ELEVATION OF LEVELS OF LIVER TRANSAMINASE LEVELS Status: Chr onic Plan: --Likely due to CHF and fatty liver dz, acute hep panel negative. LFT trending down. follow up as outpatient. (7) Obesity hypoventilation syndrome Code(s): E66.2 - MORBID (SEVERE) OBESITY WITH ALVEOLAR HYPOVENTILATION Status: Chronic --cont BiBAP prn and bedtime. Pul is following. ?trach. She has CPAP as home, pending parts. Seems like pt has different excuses each time (8) Rhabdomyolysis --resolved. CK normalized. Pt is on statin therapy. (9). Morbid Obesity with BMI 75.6 --chronically debilitated, get around with a wheelchair at home (10) Positive Blood culture - question of contaminants --will cont to complete 1 week of IV abx, 10/04/20 (11) Sepsis (POA) - presumed d/t staph bacteremia given positive blood cultures --will complete the course of IV abx as above.
[2020-10-04] MEDS: Atorvastatin Calcium 40 MG TAB PO SCH (21:51)
[2020-10-04 23:33] LABS: Hemoglobin 12.8 g/dL (12.0-16.0); Platelet Count 108 thou/uL (130-400)
[2020-10-05 08:59] LABS: Hemoglobin 11.8 g/dL (12.0-16.0); Mean Corpuscular HGB CONC 32.3 g/dL (32.0-36.0); Mean Corpuscular Hemoglobin 32.2 pg (27.0-31.0); Mean Corpuscular Volume 99.7 fL (78.0-98.0); Platelet Count 106 thou/uL (130-400); Red Blood Cell (RBC) Count 3.68 mill/uL (4.20-5.40); White Blood Cell (WBC) Count 7.9 thou/uL (4.8-10.8)
[2020-10-05] MEDS: cefTRIAXone\\ROCEPHIN 1 GM in Sodium Chloride 0.9% 100 ML IVPB SCH (09:33)
[2020-10-05] MEDS: Carvedilol 6.25 MG TAB PO SCH ×2 (09:34→23:20)
[2020-10-05] MEDS: Amlodipine 5 MG TAB PO SCH ×2 (09:34→23:20)
[2020-10-05] MEDS: Calcium Carbonate 500 MG TAB PO SCH ×2 (09:34→17:14)
[2020-10-05] MEDS: Aspirin 325 mg Enteric Coated Tablet PO SCH (09:34)
[2020-10-05] MEDS: Furosemide 20 MG TAB PO SCH (09:35)
[2020-10-05] MEDS: Enoxaparin Sodium 40 MG/0.4 ML SYRINGE SC SCH (09:35)
--- NOTE | 2020-10-05 11:08 | ULT ---
Abdominal ultrasound: Bladder US: 09/29/2020 COMPARISON: None HISTORY: Abnormal liver function tests TECHNIQUE: Multiplanar grayscale sonographic imaging of the abdomen obtained. FINDINGS: Secondary to body habitus the abdominal aorta and IVC could not be well visualized. The ruiz creas is completely obscured. Limited assessment of the hepatic parenchyma demonstrates heterogeneity of the hepatic parenchyma with a suggestion of peripheral contour irregularity suspicio us for underlying cirrhosis. Common bile duct is estimated at 6-7 millimeters. The patient is status post cholecystectomy. Right kidney is partially obscured and measures approximately 12.8 cm in craniocaudal dimension. No right-sided hydronephrosis is evident. Spleen is difficult to accurately measure and may be mildly enlarged. Left kidney is vaguely visualiz ed measuring approximately 12.9 cm. No left-sided hydronephrosis. Images include assessment of the bladder which is poorly assessed and appears to contain a Colon catheter. IMPRESSION: Markedly limited examination secondary to body habitus. Findings suggesting hepatic cirrh osis with possible splenomegaly on the basis of portal hypertension. Transcribed Date/Time: 10/05/2020 11:08 AM
--- NOTE | 2020-10-05 15:21 | PDOC.HOSPP ---
- Subjective Subjective: Seen examined at bedside. Patient seems to be more somnolent today. She is currently is on BiPAP. Nursing staff reported patient had some dark tarry stool. Repeated CBC, showed that her hemoglobin trended down slightly. Stool guaiac is pending. Patient is currently is on PPI. Lovenox is on hold at this point. Patient is quite poor prognosis given her compliance issue, as well as multiple other comorbidities. - Objective Vital Signs & Weight: Vital Signs (12 hours) Temp Pulse Resp BP BP Pulse Ox 10/05/20 12:22 98.6 F 77 20 160/98 H 91 L 10/05/20 09:34 75 148/85 H 10/05/20 07:30 96 10/05/20 07:26 98.4 F 75 20 146/88 H 96 Weight Weight 438 lb 4.8 oz Most Recent Monitor Data Heart Rate from ECG 62 NIBP 159/107 NIBP BP-Mean 124 Respiration from ECG 25 SpO2 96 I&O: 10/04/20 10/05/20 10/06/20 06:59 06:59 06:59 Intake Total 720 Output Total 600 1375 Balance -600 -655 Result Diagrams: 10/05/20 08:47 10/04/20 03:41 Radiology Reviewed by me: Yes EKG Reviewed by me: Yes Hospitalist ROS - Medication Medications: Active Medications Generic Name Dose Route Start Last Admin Trade Name Freq PRN Reason Stop Dose Admin Acetaminophen 650 mg 09/28/20 13:54 10/01/20 19:07 Acetaminophen 325 Mg Tab PO 650 mg Q4H PRN Administration Headache/Fever/Mild Pain (1-3) Amlodipine Besylate 5 mg 10/04/20 21:00 10/05/20 09:34 Amlodipine 5 Mg Tab PO 5 mg BID TIANA Administration Aspirin 325 mg 09/29/20 09:00 10/05/20 09:34 Aspirin 325 Mg Enteric Coated Tablet PO 325 mg DAILY TIANA Administration Atorvastatin Calcium 40 mg 09/28/20 21:00 10/04/20 21:51 Atorvastatin Calcium 40 Mg Tab PO 40 mg HS TIANA Administration Bisacodyl 10 mg 09/28/20 13:54 10/04/20 12:55 Bisacodyl 5 Mg Tab PO 10 mg DAILYPRN PRN Administration Constipation Calcium Carbonate 500 mg 09/30/20 17:00 10/05/20 09:34 Calcium Carbonate 500 Mg Tab PO 500 mg BID-WM TIANA Administration Carvedilol 6.25 mg 10/02/20 21:00 10/05/20 09:34 Carvedilol 6.25 Mg Tab PO 6.25 mg BID TIANA Administration Enoxaparin Sodium 40 mg 09/30/20 21:00 10/05/20 09:35 Enoxaparin Sodium 40 Mg/0.4 Ml Syringe SC Not Given 0900,2100 TIANA Ergocalciferol 1.25 mg 09/29/20 16:00 09/29/20 16:10 Ergocalciferol 1.25 Mg(50,000 Units) Cap PO 1.25 mg Q7DAYS@1600 TIANA Administration Furosemide 20 mg 10/03/20 09:00 10/05/20 09:35 Furosemide 20 Mg Tab PO 20 mg DAILY TIANA Administration Hydralazine HCl 10 mg 09/28/20 21:45 09/30/20 12:20 Hydralazine 20 Mg/Ml Vial SLOW IVP 10 mg Q1H PRN Administration Blood Pressure Ceftriaxone Sodium 1 gm/ 100 mls @ 200 mls/hr 10/01/20 09:00 10/05/20 09:33 Sodium Chloride IVPB 100 mls Q24HR TIANA Administration Pantoprazole Sodium 40 mg 10/05/20 09:00 10/05/20 09:35 Pantoprazole 40 Mg Tab PO 40 mg DAILY TIANA Administration - Exam General Appearance: NAD Eye: PERRL ENT: normocephalic atraumatic Neck: supple Heart: RRR Respiratory: CTAB Gastrointestinal: soft, non-tender Extremities: no cyanosis Skin: normal turgor, no lesions Musculoskeletal: normal tone, normal strength, generalized weakness Psychiatric: somnolent Hosp A/P - Plan (1) Acute on chronic respiratory failure with hypoxia and hypercapnia Code(s): J96.21 - ACUTE AND CHRONIC RESPIRATORY FAILURE WITH HYPOXIA; J96.22 - ACUTE AND CHRONIC RESPIRATORY FAILURE WITH HYPERCAPNIA Status: Acute Plan: --Cont BiBAP at bedtime and prn. Pulmonology is following. She was given 3 doses of Diamox. --Her obesity hypoventilation syndrome/noncompliant with CPAP is going to be ongoing and main issue. --d/w with CM not much option is available. --will consult Palliative care to address GOC (2) Non-ST elevation myocardial infarction (NSTEMI) Code(s): I21.4 - NON-ST ELEVATION (NSTEMI) MYOCARDIAL INFARCTION Status: Acute Plan: --cont Statin/ASA/Lovenox. Echo showed preserve EF. Appreciate Cardiology input. Med mgt --decr Coreg d/t bradycardia - cont tele monitor (3) Acute diastolic CHF (congestive heart failure) Code(s): I50.31 - ACUTE DIASTOLIC (CONGESTIVE) HEART FAILURE Status: Acute --EF 55%, appears euvolemic. Add low dose PO Lasix for dependent edema. (4) Acute kidney injury Code(s): N17.9 - ACUTE KIDNEY FAILURE, UNSPECIFIED Status: Acute Plan: --resolved. Cr normalized. Avoid NSAIDs. (5) Hyperkalemia Code(s): E87.5 - HYPERKALEMIA Status: Acute Plan: --Resolved (6) Transaminitis Code(s): R74.01 - ELEVATION OF LEVELS OF LIVER TRANSAMINASE LEVELS Status: Chronic Plan: --Likely due to CHF and fatty liver dz, acute hep panel negative. LFT trending d own. follow up as outpatient. (7) Obesity hypoventilation syndrome Code(s): E66.2 - MORBID (SEVERE) OBESITY WITH ALVEOLAR HYPOVENTILATION Status: Chronic --cont BiBAP prn and bedtime. Pul is following. ?trach. She has CPAP as home, pending parts. Seems like pt has different excuses each time (8) Rhabdomyolysis --resolved. CK normalized. Pt is on statin therapy. (9). Morbid Obesity with BMI 75.6 --chronically debilitated, get around with a wheelchair at home (10) Positive Blood culture - question of contaminants --will cont to complete 1 week of IV abx, 10/04/20 (11) Sepsis (POA) - presumed d/t staph bacteremia given positive blood cultures --will complete the course of IV abx as above. (12) Melena --check Stool guiaic. Hb trending down slightly. Monitor CBC. Hold Lovenox for now. Cont PPI
[2020-10-05] MEDS: Acetaminophen 325 MG TAB PO PRN (23:19)
[2020-10-05] MEDS: Atorvastatin Calcium 40 MG TAB PO SCH (23:20)
[2020-10-06 04:18] LABS: #Eosinphils 0.2 thou/uL (0.0-0.7); #Lymphocytes 0.7 thou/uL (1.20-3.40); #Monocytes 0.3 thou/uL (0.11-0.59); #Neutrophils 2.5 thou/uL (1.40-6.50); %Basophils 0.6 % (0.0-1.0); %Eosinophils 6.3 % (0.0-10.0); %Lymphocytes 18.2 % (21.0-51.0); %Monocytes 7.1 % (0.0-10.0); %Neutrophils 67.8 % (42.0-75.0); Hemoglobin 9.5 g/dL (12.0-16.0); Mean Corpuscular HGB CONC 31.9 g/dL (32.0-36.0); Mean Corpuscular Hemoglobin 31.4 pg (27.0-31.0); Mean Corpuscular Volume 98.4 fL (78.0-98.0); Mean Platelet Volume 9.6 fL (7.4-10.4); Platelet Count 117 thou/uL (130-400); RBC Distribution Width 13.8 % (11.5-14.5); Red Blood Cell (RBC) Count 3.01 mill/uL (4.20-5.40); White Blood Cell (WBC) Count 3.7 thou/uL (4.8-10.8)
[2020-10-06 04:39] LABS: Anion Gap 12 mmol/L (10-20); BUN (Urea Nitrogen) 38 mg/dL (9.8-20.1); Calc. Creatinine Clearance 253 mL/min (70-130); Calcium 8.5 mg/dL (7.8-10.44); Carbon Dioxide 31 mmol/L (22-29); Chloride 106 mmol/L (98-107); Glucose 105 mg/dL (70-105); Potassium 3.6 mmol/L (3.5-5.1); Sodium 145 mmol/L (136-145)
[2020-10-06] MEDS: Carvedilol 6.25 MG TAB PO SCH ×2 (08:48→20:28)
[2020-10-06] MEDS: Calcium Carbonate 500 MG TAB PO SCH ×2 (08:48→17:00)
[2020-10-06] MEDS: cefTRIAXone\\ROCEPHIN 1 GM in Sodium Chloride 0.9% 100 ML IVPB SCH (08:48)
[2020-10-06] MEDS: Aspirin 325 mg Enteric Coated Tablet PO SCH (08:48)
[2020-10-06] MEDS: Amlodipine 5 MG TAB PO SCH ×2 (08:48→20:28)
[2020-10-06] MEDS: Furosemide 20 MG TAB PO SCH (08:49)
--- NOTE | 2020-10-06 10:36 | PDOC.PALCO ---
Palliative Care Consult - Consult Details Requesting Physician: Dr Moore Reason for Consult: goals of care, advance directives assistance, complex decision-making Family Members Present: Patient mother present for partial aspect of conversation - Pertinent HPI 54 year old female who presented to the emergency room 09/28/2020 with recurrent falls/sliding off cough/chair. Negative for fever, chills, nausea, vomiting. She reported non ambulatory for over 2 years, has not left her home setting in that amount of time. [place] the [place] with her mother. She has a significant other "Jai". States that she has not used her Cpap in over two year s. In evaluation in emergency room she was noted to have elevated Troponin and acute kidney injury. Admitted for further evaluation and management. - Pertinent PMH Obstructive sleep apnea, hypertension, osteoarthritis, morbid obesity - Social History Smoking Status: Never smoker Smoking: no tobacco exposure Alcohol Use: none Drug Use History: none Living Situation: independent - Medications MAR Reviewed: Yes - Allergies Allergies/Adverse Reactions: Allergies Allergy/AdvReac Type Severity Reaction Status Date / Time codeine Allergy Verified 09/28/20 13:53 lisinopril Allergy Verified 09/28/20 13:53 - Subjective Converses, although denies shortness of breath is noted to have increase in respiratory rate with minimal conversation. Denies specific complaints at time of assessment. Bedbound, confirms non compliant with home CPAP, reasons vary. Understanding of limited discharge options. - ROS Constitutional: alert, malaise, weakness ENT: dry mouth Respiratory: other (Denies cough/congestion) Cardiology: other (denies palpitations, or chest discomfort) Gastrointestinal: other (negative fo rnausea, diarrhea, constipation) Genitourinary: other (denies frequency, hematuria) Musculoskeletal: back pain, limited mobility Neurological: other (denies dizziness, headache ) Psychological: other (Denies depression or anxiety) - Objective Vital Signs: Vital Signs - Most Recent Temp Pulse Resp BP Pulse Ox 97.8 F 71 20 168/84 H 92 L 10/06/20 07:40 10/06/20 07:40 10/06/20 07:40 10/06/20 07:40 10/06/20 08:48 Palliative Performance Scale: 30 - Physical Exam Constitutional: ill appearing Deviation from normal: morbidly obese HEENT: EOMI, moist MMs, sclera anicteric Respiratory: no wheezing, diminished lung sound, labored respirations Cardiovascular: RRR, diminished peripheral pulses Gastrointestinal: soft, non-tender Deviation from normal: No bowel movement noted Genitourinary: henson catheter Musculoskeletal: edema present, diffuse muscle atrophy Neurology: moves all 4 limbs, no focal deficits Deviation from normal: states intermittant numbness to lower ext bilaterally Skin: cap refill <2 seconds, no lesions, no rash, bruising Psychiatric: A&O x 3, flat affect - Problem List (1) Palliative care encounter Code(s): Z51.5 - ENCOUNTER FOR PALLIATIVE CARE Current Visit: Yes Status: Acute (2) Abnormal liver function tests Code(s): R94.5 - ABNORMAL RESULTS OF LIVER FUNCTION STUDIES Current Visit: Yes Status: Acute (3) Acute diastolic CHF (congestive heart failure) Code(s): I50.31 - ACUTE DIASTOLIC (CONGESTIVE) HEART FAILURE Current Visit: Yes Status: Acute (4) Acute kidney injury Code(s): N17.9 - ACUTE KIDNEY FAILURE, UNSPECIFIED Current Visit: Yes Status: Acute (5) Acute on chronic respiratory failure with hypoxia and hypercapnia Code(s): J96.21 - ACUTE AND CHRONIC RESPIRATORY FAILURE WITH HYPOXIA; J96.22 - ACUTE AND CHRONIC RESPIRATORY FAILURE WITH HYPERCAPNIA Current Visit: Yes Status: Acute (6) Non-ST elevation myocardial infarction (NSTEMI) Code(s): I21.4 - NON-ST ELEVATION (NSTEMI) MYOCARDIAL INFARCTION Current Visit: Yes Status: Acute (7) Morbid obesity Code(s): E66.01 - MORBID (SEVERE) OBESITY DUE TO EXCESS CALORIES Current Visit: Yes Status: Chronic (8) Obesity hypoventilation syndrome Code(s): E66.2 - MORBID (SEVERE) OBESITY WITH ALVEOLAR HYPOVENTILATION Current Visit: Yes Status: Chronic - Plan/Recommendations Plan:Palliative care initiated conversation in relation to Directives and Goal of care. Lives in private setting next to her mother. Uses a rolling chair to navigate home setting secondary to narrow door ways. Has not been ambulatory or out of home setting in 2 years secondary to obesity and declining functional status. Has significant other that she has lived with over 30 years, they are not . Enjoys crocheting and crafting with vinyl. Discussed chronic disease processes and poor prognosis in the event CPR would need to be carried out to sustain life. Mother to arrive later 10/06/2020 and discuss MPOA, Directive to physician, and resuscitation status. Confirms non compliant with Cpap, needs replacement piece or replacement machine. Hopeful to transition to skilled setting, secondary to insurance uncertain of ability for discharge to rehab/facility. End goal is to return to home independently. Agreeable to meet with dietitian. Discussed communicating with current insurance carrier to identify if tele counseling services available to address emotional distress associated with obesity and multiple morbidities. Communicated with Dr Moore and Case management. Will revisit Resuscitation status and further discuss consideration of Home with home health/palliative/hospice 10/07/2020. [60] minutes spent on this encounter with >50% of the time in counseling and coordination of care. Thank you for this very appropriate consult.
[2020-10-06] MEDS: Acetaminophen 325 MG TAB PO PRN ×2 (11:14→20:26)
--- NOTE | 2020-10-06 16:19 | PDOC.HOSPP ---
- Subjective Subjective: Pt was seen and examined. d/w nursing staff, noncompliant with BiBAP but after several talk she was agreed to keep it on. She is more alert today. d/w Palliative care team. Appreciate input. - Objective Vital Signs & Weight: Vital Signs (12 hours) Temp Pulse Resp BP Pulse Ox 10/06/20 15:07 98.1 F 76 22 H 113/55 L 93 L 10/06/20 11:12 98.3 F 74 19 132/77 93 L 10/06/20 08:48 92 L 10/06/20 07:40 97.8 F 71 20 168/84 H 92 L Weight Admit Weight 445 lb 1.813 oz Weight 435 lb Most Recent Monitor Data Heart Rate from ECG 62 NIBP 159/107 NIBP BP-Mean 124 Respiration from ECG 25 SpO2 96 I&O: 10/05/20 10/06/20 10/07/20 06:59 06:59 06:59 Intake Total 720 Output Total 1375 Balance -655 Result Diagrams: 10/06/20 03:44 10/06/20 03:44 Hospitalist ROS - Medication Medications: Active Medications Generic Name Dose Route Start Last Admin Trade Name Freq PRN Reason Stop Dose Admin Acetaminophen 650 mg 09/28/20 13:54 10/06/20 11:14 Acetaminophen 325 Mg Tab PO 650 mg Q4H PRN Administration Headache/Fever/Mild Pain (1-3) Amlodipine Besylate 5 mg 10/04/20 21:00 10/06/20 08:48 Amlodipine 5 Mg Tab PO 5 mg BID TIANA Administration Aspirin 325 mg 09/29/20 09:00 10/06/20 08:48 Aspirin 325 Mg Enteric Coated Tablet PO 325 mg DAILY TIANA Administration Atorvastatin Calcium 40 mg 09/28/20 21:00 10/05/20 23:20 Atorvastatin Calcium 40 Mg Tab PO 40 mg HS TIANA Administration Bisacodyl 10 mg 09/28/20 13:54 10/04/20 12:55 Bisacodyl 5 Mg Tab PO 10 mg DAILYPRN PRN Administration Constipation Calcium Carbonate 500 mg 09/30/20 17:00 10/06/20 08:48 Calcium Carbonate 500 Mg Tab PO 500 mg BID-WM TIANA Administration Carvedilol 6.25 mg 10/02/20 21:00 10/06/20 08:48 Carvedilol 6.25 Mg Tab PO 6.25 mg BID TIANA Administration Enoxaparin Sodium 40 mg 09/30/20 21:00 10/05/20 09:35 Enoxaparin Sodium 40 Mg/0.4 Ml Syringe SC Not Given 899,2099 [facility] Ergocalciferol 1.25 mg 09/29/20 16:00 09/29/20 16:10 Ergocalciferol 1.25 Mg(50,000 Units) Cap PO 1.25 mg Q7DAYS@1600 TIANA Administration Furosemide 20 mg 10/03/20 09:00 10/06/20 08:49 Furosemide 20 Mg Tab PO 20 mg DAILY TIANA Administration Hydralazine HCl 10 mg 09/28/20 21:45 09/30/20 12:20 Hydralazine 20 Mg/Ml Vial SLOW IVP 10 mg Q1H PRN Administration Blood Pressure Ceftriaxone Sodium 1 gm/ 100 mls @ 200 mls/hr 10/01/20 09:00 10/06/20 08:48 Sodium Chloride IVPB 100 mls Q24HR TIANA Administration Pantoprazole Sodium 40 mg 10/05/20 09:00 10/06/20 08:48 Pantoprazole 40 Mg Tab PO 40 mg DAILY TIANA Administration - Exam General Appearance: NAD General - other findings: moribidly obese Eye: PERRL ENT: normocephalic atraumatic Neck: supple Respiratory: CTAB Gastrointestinal: soft Extremities: no cyanosis, 1+ LE edema Skin: normal turgor Neurological: cranial nerve grossly intact Musculoskeletal: normal tone Psychiatric: normal affect, normal behavior, A&O x 3 Hosp A/P - Plan (1) Acute on chronic respiratory failure with hypoxia and hypercapnia Code(s): J96.21 - ACUTE AND CHRONIC RESPIRATORY FAILURE WITH HYPOXIA; J96.22 - ACUTE AND CHRONIC RESPIRATORY FAILURE WITH HYPERCAPNIA Status: Acute Plan: --Cont BiBAP at bedtime and prn. Pulmonology is following. She was given 3 doses of Diamox. --Her obesity hypoventilation syndrome/noncompliant with CPAP is going to be ongoing and main issue. --d/w with CM not much option is available. --d/w Palliative care to address GOC, family elected hospice. Stable to d/c when things arranged. Cont supportive cares (2) Non-ST elevation myocardial infarction (NSTEMI) Code(s): I21.4 - NON-ST ELEVATION (NSTEMI) MYOCARDIAL INFARCTION Status: Acute Plan: --cont Statin/ASA/Lovenox. Echo showed preserve EF. Appreciate Cardiology input. Med mgt --decr Coreg d/t bradycardia - cont tele monitor (3) Acute diastolic CHF (congestive heart failure) Code(s): I50.31 - ACUTE DIASTOLIC (CONGESTIVE) HEART FAILURE Status: Acute --EF 55%, appears euvolemic. Add low dose PO Lasix for dependent edema. (4) Acute kidney injury Code(s): N17.9 - ACUTE KIDNEY FAILURE, UNSPECIFIED Status: Acute Plan: --resolved. Cr normalized. Avoid NSAIDs. (5) Hyperkalemia Code(s): E87.5 - HYPERKALEMIA Status: Acute Plan: --Resolved (6) Transaminitis Code(s): R74.01 - ELEVATION OF LEVELS OF LIVER TRANSAMINASE LEVELS Status: Chronic Plan: --Likely due to CHF and fatty liver dz, acute hep panel negative. LFT trending down. follow up as outpatient. (7) Obesity hypoventilation syndrome Code(s): E66.2 - MORBID (SEVERE) OBESITY WITH ALVEOLAR HYPOVENTILATION Status: Chronic --cont BiBAP prn and bedtime. Pul is following. ?trach. She has CPAP as home, pending parts. Seems like pt has different excuses each time (8) Rhabdomyolysis --resolved. CK normalized. Pt is on statin therapy. (9). Morbid Obesity with BMI 75.6 --chronically debilitated, get around with a wheelchair at home (10) Positive Blood culture - question of contaminants --will cont to complete 1 week of IV abx, 10/04/20 (11) Sepsis (POA) - presumed d/t staph bacteremia given positive blood cultures --will complete the course of IV abx as above. (12) Melena --check Stool guiaic. Hb trending down slightly. Monitor CBC. Hold Lovenox for now. Cont PPI
[2020-10-06] MEDS: Ergocalciferol 1.25 MG(50,000 UNITS) CAP PO SCH (17:00)
[2020-10-06] MEDS: Atorvastatin Calcium 40 MG TAB PO SCH (20:26)
[2020-10-07] MEDS: Calcium Carbonate 500 MG TAB PO SCH ×2 (09:14→16:36)
[2020-10-07] MEDS: Aspirin 325 mg Enteric Coated Tablet PO SCH (09:14)
[2020-10-07] MEDS: Carvedilol 6.25 MG TAB PO SCH ×2 (09:14→20:26)
[2020-10-07] MEDS: Amlodipine 5 MG TAB PO SCH ×2 (09:14→20:26)
[2020-10-07] MEDS: Furosemide 20 MG TAB PO SCH (09:14)
--- NOTE | 2020-10-07 11:38 | PDOC.PALPN ---
Palliative Progress Note - Subjective Awake, confirms use of Bipap overnight. Flat affect, denies any specific complaints. Continues to be bedbound. - Objective Vital Signs: Vital Signs - Most Recent Temp Pulse Resp BP Pulse Ox 98.6 F 74 18 139/81 94 L 10/07/20 07:12 10/07/20 07:12 10/07/20 07:12 10/07/20 07:12 10/07/20 08:05 - Physical Exam Constitutional: NAD, ill appearing HEENT: EOMI, moist MMs, sclera anicteric Respiratory: no rhonchi, no wheezing, diminished lung sound Cardiovascular: RRR Gastrointestinal: soft, non-tender Deviation from normal: Obese Genitourinary: henson catheter Musculoskeletal: edema present, diffuse muscle atrophy Neurology: moves all 4 limbs, no focal deficits Skin: cap refill <2 seconds, no lesions, bruising Psychiatric: A&O x 3, normal mood, flat affect - Assessment (1) Palliative care encounter Code(s): Z51.5 - ENCOUNTER FOR PALLIATIVE CARE Current Visit: Yes Status: Acute (2) Abnormal liver function tests Code(s): R94.5 - ABNORMAL RESULTS OF LIVER FUNCTION STUDIES Current Visit: Yes Status: Acute (3) Acute diastolic CHF (congestive heart failure) Code(s): I50.31 - ACUTE DIASTOLIC (CONGESTIVE) HEART FAILURE Current Visit: Yes Status: Acute (4) Acute kidney injury Code(s): N17.9 - ACUTE KIDNEY FAILURE, UNSPECIFIED Current Visit: Yes Status: Acute (5) Acute on chronic respiratory failure with hypoxia and hypercapnia Code(s): J96.21 - ACUTE AND CHRONIC RESPIRATORY FAILURE WITH HYPOXIA; J96.22 - ACUTE AND CHRONIC RESPIRATORY FAILURE WITH HYPERCAPNIA Current Visit: Yes Status: Acute (6) Non-ST elevation myocardial infarction (NSTEMI) Code(s): I21.4 - NON-ST ELEVATION (NSTEMI) MYOCARDIAL INFARCTION Current Visit: Yes Status: Acute (7) Morbid obesity Code(s): E66.01 - MORBID (SEVERE) OBESITY DUE TO EXCESS CALORIES Current Visit: Yes Status: Chronic (8) Obesity hypoventilation syndrome Code(s): E66.2 - MORBID (SEVERE) OBESITY WITH ALVEOLAR HYPOVENTILATION Current Visit: Yes Status: Chronic - Plan Plan: Revisited conversation in relation to Goal of Care and resuscitation status/ Goals are: Return home to live with her mother Improved Breathing *Will need to obtain functional CPAP *Weight loss to improve breathing *Exercise to gain strength *Compliance Desires to walk again and go outside *Weight loss to be ambulatory *PT and independent exercise to promote muscle strength Discussed she wants to discharge home. Patient mother to return this afternoon and will further discuss Home Health/Palliative with opportunity to transition to hospice if not improving Revisit resuscitation status as per patient request with her mother. A Jonelle [employer] animal caretaker to follow up with conversation after mother arrives. Discussed patient mental health, denies depression. Again suggested to follow up with insurance and opportunity for tele health counseling. [40] minutes spent on this encounter with >50% of the time in counseling and coordination of care. - ROS Constitutional: malaise, weakness ENT: dry mouth Respiratory: other (Denies shortness of breath, cough, congestion) Cardiology: other (Denies chest pain, palpitations) Gastrointestinal: other (Denies nausea, vomiting, diarrhea) Musculoskeletal: limited mobility, other (Intermittant back pain) Neurological: other (intermittant numbness to feet bilaterally) Psychological: other (Denies depression/anxiety)
--- NOTE | 2020-10-07 15:24 | PDOC.HOSPP ---
- Subjective Subjective: Patient was seen examined at bedside. Patient stated that she was wearing her BiPAP overnight. Discussed with nursing staff, she took it off from time to time. At any rate, patient is more alert this morning. Initially, the plan was discharged home with hospice. Patient stated her mom let move in and live with her. Trying to get in arrange, and well as get her CPAP fixed. Appreciate Palliative care team/CM - Objective Vital Signs & Weight: Vital Signs (12 hours) Temp Pulse Resp BP Pulse Ox 10/07/20 12:40 97.7 F 72 16 136/78 93 L 10/07/20 08:05 94 L 10/07/20 07:12 98.6 F 74 18 139/81 94 L 10/07/20 03:08 98.5 F 72 14 135/65 94 L Weight Admit Weight 445 lb 1.813 oz Weight 437 lb 6.4 oz Most Recent Monitor Data Heart Rate from ECG 62 NIBP 159/107 NIBP BP-Mean 124 Respiration from ECG 25 SpO2 96 I&O: 10/06/20 10/07/20 10/08/20 06:59 06:59 06:59 Intake Total 960 Output Total 2200 Balance -1240 Result Diagrams: 10/06/20 03:44 10/06/20 03:44 Radiology Reviewed by me: Yes EKG Reviewed by me: Yes Hospitalist ROS - Medication Medications: Active Medications Generic Name Dose Route Start Last Admin Trade Name Freq PRN Reason Stop Dose Admin Acetaminophen 650 mg 09/28/20 13:54 10/06/20 20:26 Acetaminophen 325 Mg Tab PO 650 mg Q4H PRN Administration Headache/Fever/Mild Pain (1-3) Amlodipine Besylate 5 mg 10/04/20 21:00 10/07/20 09:14 Amlodipine 5 Mg Tab PO 5 mg BID TIANA Administration Aspirin 325 mg 09/29/20 09:00 10/07/20 09:14 Aspirin 325 Mg Enteric Coated Tablet PO 325 mg DAILY TIANA Administration Atorvastatin Calcium 40 mg 09/28/20 21:00 10/06/20 20:26 Atorvastatin Calcium 40 Mg Tab PO 40 mg HS TIANA Administration Bisacodyl 10 mg 09/28/20 13:54 10/04/20 12:55 Bisacodyl 5 Mg Tab PO 10 mg DAILYPRN PRN Administration Constipation Calcium Carbonate 500 mg 09/30/20 17:00 10/07/20 09:14 Calcium Carbonate 500 Mg Tab PO 500 mg BID-WM TIANA Administration Carvedilol 6.25 mg 10/02/20 21:00 10/07/20 09:14 Carvedilol 6.25 Mg Tab PO 6.25 mg BID TIANA Administration Enoxaparin Sodium 40 mg 09/30/20 21:00 10/05/20 09:35 Enoxaparin Sodium 40 Mg/0.4 Ml Syringe SC Not Given 899,2099 [facility] Ergocalciferol 1.25 mg 09/29/20 16:00 10/06/20 17:00 Ergocalciferol 1.25 Mg(50,000 Units) Cap PO 1.25 mg Q7DAYS@1600 TIANA Administration Furosemide 20 mg 10/03/20 09:00 10/07/20 09:14 Furosemide 20 Mg Tab PO 20 mg DAILY TIANA Administration Hydralazine HCl 10 mg 09/28/20 21:45 09/30/20 12:20 Hydralazine 20 Mg/Ml Vial SLOW IVP 10 mg Q1H PRN Administration Blood Pressure Pantoprazole Sodium 40 mg 10/05/20 09:00 10/07/20 09:14 Pantoprazole 40 Mg Tab PO 40 mg DAILY TIANA Administration - Exam General Appearance: NAD Eye: PERRL ENT: normocephalic atraumatic Neck: supple Heart: RRR Respiratory: CTAB Gastrointestinal: soft Extremities: no cyanosis Skin: normal turgor Neurological: cranial nerve grossly intact Musculoskeletal: normal tone Hosp A/P - Plan (1) Acute on chronic respiratory failure with hypoxia and hypercapnia Code(s): J96.21 - ACUTE AND CHRONIC RESPIRATORY FAILURE WITH HYPOXIA; J96.22 - ACUTE AND CHRONIC RESPIRATORY FAILURE WITH HYPERCAPNIA Status: Acute Plan: --Cont BiBAP at bedtime and prn. Pulmonology is following. She was given 3 doses of Diamox. --Her obesity hypoventilation syndrome/noncompliant with CPAP is going to be ongoing and main issue. --d/w with CM not much option is available. --d/w Palliative care to address GOC, family elected hospice. Stable to d/c when things arranged. Cont supportive cares (2) Non-ST elevation myocardial infarction (NSTEMI) Code(s): I21.4 - NON-ST ELEVATION (NSTEMI) MYOCARDIAL INFARCTION Status: Acute Plan: --cont Statin/ASA/Lovenox. Echo showed preserve EF. Appreciate Cardiology input. Med mgt --decr Coreg d/t bradycardia - cont tele monitor (3) Acute diastolic CHF (congestive heart failure) Code(s): I50.31 - ACUTE DIASTOLIC (CONGESTIVE) HEART FAILURE Status: Acute --EF 55%, appears euvolemic. Add low dose PO Lasix for dependent edema. (4) Acute kidney injury Code(s): N17.9 - ACUTE KIDNEY FAILURE, UNSPECIFIED Status: Acute Plan: --resolved. Cr normalized. Avoid NSAIDs. (5) Hyperkalemia Code(s): E87.5 - HYPERKALEMIA Status: Acute Plan: --Resolved (6) Transaminitis Code(s): R74.01 - ELEVATION OF LEVELS OF LIVER TRANSAMINASE LEVELS Status: Chronic Plan: --Likely due to CHF and fatty liver dz, acute hep panel negative. LFT trending down. follow up as outpatient. (7) Obesity hypoventilation syndrome Code(s): E66.2 - MORBID (SEVERE) OBESITY WITH ALVEOLAR HYPOVENTILATION Status: Chronic --cont BiBAP prn and bedtime. Pul is following. ?trach. She has CPAP as home, pending parts. Seems like pt has different excuses each time (8) Rhabdomyolysis --resolved. CK normalized. Pt is on statin therapy. (9). Morbid Obesity with BMI 75.6 --chronically debilitated, get around with a wheelchair at home (10) Positive Blood culture - question of contaminants --will cont to complete 1 week of IV abx, 10/04/20 (11) Sepsis (POA) - presumed d/t staph bacteremia given positive blood cultures --will complete the course of IV abx as above. (12) Melena --check Stool guiaic. Hb trending down slightly. Monitor CBC. Hold Lovenox for now. Cont PPI. No evidence of bleeding. Disposition: Pt is medically stable to discharge. Unfortunately, she has limited resource. She has no SNF/Rehab benefits. Her mother elected to let her move in with her, trying get things arranged at home before she can move in. Possible d/c over the weekend if she can get her CPAP fixed and things situated.
[2020-10-07] MEDS: Acetaminophen 325 MG TAB PO PRN (16:36)
[2020-10-07] MEDS: Atorvastatin Calcium 40 MG TAB PO SCH (20:26)
[2020-10-07] MEDS: Nystatin/Triamcinolone Ointment 15 GM TUBE TOP SCH (20:31)
[2020-10-08 04:54] LABS: #Basophils 0.1 thou/uL (0.0-0.2); #Eosinphils 0.4 thou/uL (0.0-0.7); #Lymphocytes 1.2 thou/uL (1.20-3.40); #Monocytes 0.6 thou/uL (0.11-0.59); #Neutrophils 3.6 thou/uL (1.40-6.50); %Eosinophils 6.3 % (0.0-10.0); %Lymphocytes 20.1 % (21.0-51.0); %Monocytes 10.4 % (0.0-10.0); %Neutrophils 61.1 % (42.0-75.0); Hemoglobin 11.3 g/dL (12.0-16.0); Mean Corpuscular HGB CONC 33.9 g/dL (32.0-36.0); Mean Corpuscular Hemoglobin 33.7 pg (27.0-31.0); Mean Corpuscular Volume 99.5 fL (78.0-98.0); Mean Platelet Volume 8.9 fL (7.4-10.4); Platelet Count 109 thou/uL (130-400); RBC Distribution Width 14.1 % (11.5-14.5); Red Blood Cell (RBC) Count 3.36 mill/uL (4.20-5.40); White Blood Cell (WBC) Count 5.9 thou/uL (4.8-10.8)
[2020-10-08 05:11] LABS: Anion Gap 9 mmol/L (10-20); BUN (Urea Nitrogen) 23 mg/dL (9.8-20.1); Calc. Creatinine Clearance 266 mL/min (70-130); Calcium 8.1 mg/dL (7.8-10.44); Carbon Dioxide 34 mmol/L (22-29); Chloride 103 mmol/L (98-107); Glucose 124 mg/dL (70-105); Potassium 3.4 mmol/L (3.5-5.1); Sodium 143 mmol/L (136-145)
[2020-10-08] MEDS: Aspirin 325 mg Enteric Coated Tablet PO SCH (08:16)
[2020-10-08] MEDS: Amlodipine 5 MG TAB PO SCH ×2 (08:16→21:17)
[2020-10-08] MEDS: Calcium Carbonate 500 MG TAB PO SCH ×2 (08:16→17:21)
[2020-10-08] MEDS: Nystatin/Triamcinolone Ointment 15 GM TUBE TOP SCH ×2 (08:17→21:17)
[2020-10-08] MEDS: Furosemide 20 MG TAB PO SCH (08:17)
[2020-10-08] MEDS: Carvedilol 6.25 MG TAB PO SCH ×2 (08:17→21:17)
--- NOTE | 2020-10-08 17:39 | PDOC.HOSPP ---
- Subjective Encounter Date: 10/08/20 Encounter Time: 09:00 Subjective: Seen for follow-up for respiratory failure. She reports feeling better. - Objective Vital Signs & Weight: Vital Signs (12 hours) Temp Pulse Resp BP Pulse Ox 10/08/20 15:29 98 F 70 16 124/67 96 10/08/20 08:16 68 10/08/20 08:11 98 F 68 16 131/64 94 L Weight Admit Weight 445 lb 1.813 oz Weight 427 lb 6.4 oz Most Recent Monitor Data Heart Rate from ECG 62 NIBP 159/107 NIBP BP-Mean 124 Respiration from ECG 25 SpO2 96 I&O: 10/07/20 10/08/20 10/09/20 06:59 06:59 06:59 Intake Total 960 Output Total 2200 450 Balance -1240 -450 Result Diagrams: 10/08/20 04:31 10/08/20 04:31 Additional Labs: Labs and MAR reviewed by de Hospitalist ROS - Review of Systems Cardiovascular: denies: chest pain, palpitations, orthopnea, paroxysmal noc. dyspnea, edema, light headedness Gastrointestinal: denies: nausea, vomiting, abdominal pain, diarrhea, constipation, melena, hematochezia - Medication Medications: Active Medications Generic Name Dose Route Start Last Admin Trade Name Freq PRN Reason Stop Dose Admin Acetaminophen 650 mg 09/28/20 13:54 10/07/20 16:36 Acetaminophen 325 Mg Tab PO 650 mg Q4H PRN Administration Headache/Fever/Mild Pain (1-3) Amlodipine Besylate 5 mg 10/04/20 21:00 10/08/20 08:16 Amlodipine 5 Mg Tab PO 5 mg BID TIANA Administration Aspirin 325 mg 09/29/20 09:00 10/08/20 08:16 Aspirin 325 Mg Enteric Coated Tablet PO 325 mg DAILY TIANA Administration Atorvastatin Calcium 40 mg 09/28/20 21:00 10/07/20 20:26 Atorvastatin Calcium 40 Mg Tab PO 40 mg HS TIANA Administration Bisacodyl 10 mg 09/28/20 13:54 10/04/20 12:55 Bisacodyl 5 Mg Tab PO 10 mg DAILYPRN PRN Administration Constipation Calcium Carbonate 500 mg 09/30/20 17:00 10/08/20 17:21 Calcium Carbonate 500 Mg Tab PO 500 mg BID-WM TIANA Administration Carvedilol 6.25 mg 10/02/20 21:00 10/08/20 08:17 Carvedilol 6.25 Mg Tab PO 6.25 mg BID TIANA Administration Enoxaparin Sodium 40 mg 09/30/20 21:00 10/05/20 09:35 Enoxaparin Sodium 40 Mg/0.4 Ml Syringe SC Not Given 0900,2100 [facility] Ergocalciferol 1.25 mg 09/29/20 16:00 10/06/20 17:00 Ergocalciferol 1.25 Mg(50,000 Units) Cap PO 1.25 mg Q7DAYS@1600 TIANA Administration Furosemide 20 mg 10/03/20 09:00 10/08/20 08:17 Furosemide 20 Mg Tab PO 20 mg DAILY TIANA Administration Hydralazine HCl 10 mg 09/28/20 21:45 09/30/20 12:20 Hydralazine 20 Mg/Ml Vial SLOW IVP 10 mg Q1H PRN Administration Blood Pressure Nystatin/Triamcinolone Acetonide 1 gm 10/07/20 21:00 10/08/20 08:17 Nystatin/Triamcinolone Ointment 15 Gm Tube TOP Not Given BID TIANA Pantoprazole Sodium 40 mg 10/05/20 09:00 10/08/20 08:17 Pantoprazole 40 Mg Tab PO 40 mg DAILY TIANA Administration - Exam General Appearance: awake alert General - other findings: Morbid obesity Eye: anicteric sclera ENT: moist mucosa Neck: supple Heart: RRR Respiratory: CTAB Gastrointestinal: soft, non-tender Skin: no rashes Psychiatric: normal affect, normal behavior Hosp A/P - Plan Assessment/plan: (1) Acute on chronic respiratory failure with hypoxia and hypercapnia Code(s): J96.21 - ACUTE AND CHRONIC RESPIRATORY FAILURE WITH HYPOXIA; J96.22 - ACUTE AND CHRONIC RESPIRATORY FAILURE WITH HYPERCAPNIA Status: Acute Plan: --Cont BiBAP at bedtime and prn. Pulmonology is following. She was given 3 doses of Diamox. --Her obesity hypoventilation syndrome/noncompliant with CPAP is going to be ongoing and main issue. (2) Non-ST elevation myocardial infarction (NSTEMI) Code(s): I21.4 - NON-ST ELEVATION (NSTEMI) MYOCARDIAL INFARCTION Status: Acute Plan: --Medical management (3) Acute diastolic CHF (congestive heart failure) Code(s): I50.31 - ACUTE DIASTOLIC (CONGESTIVE) HEART FAILURE Status: Acute --EF 55%, appears euvolemic. (4) Acute kidney injury Code(s): N17.9 - ACUTE KIDNEY FAILURE, UNSPECIFIED Status: Solved Plan: --resolved.
[2020-10-08] MEDS: Atorvastatin Calcium 40 MG TAB PO SCH (21:17)
[2020-10-09] MEDS: Amlodipine 5 MG TAB PO SCH ×2 (08:45→21:30)
[2020-10-09] MEDS: Furosemide 20 MG TAB PO SCH (08:45)
[2020-10-09] MEDS: Carvedilol 6.25 MG TAB PO SCH ×2 (08:45→21:30)
[2020-10-09] MEDS: Calcium Carbonate 500 MG TAB PO SCH ×2 (08:46→17:21)
[2020-10-09] MEDS: Aspirin 325 mg Enteric Coated Tablet PO SCH (08:46)
[2020-10-09] MEDS: Nystatin/Triamcinolone Ointment 15 GM TUBE TOP SCH ×2 (10:57→21:30)
--- NOTE | 2020-10-09 16:11 | PDOC.HOSPP ---
- Subjective Encounter Date: 10/09/20 Encounter Time: 09:30 Subjective: Patient seen for follow-up regarding respiratory failure. Denies chest pain. - Objective Vital Signs & Weight: Vital Signs (12 hours) Temp Pulse Resp BP BP BP Pulse Ox 10/09/20 12:05 99.8 F H 79 15 142/79 H 95 10/09/20 11:42 142/79 H 10/09/20 08:45 70 126/79 10/09/20 07:45 97 10/09/20 07:35 97.9 F 70 16 126/69 97 Weight Admit Weight 445 lb 1.813 oz Weight 431 lb 1.6 oz Most Recent Monitor Data Heart Rate from ECG 62 NIBP 159/107 NIBP BP-Mean 124 Respiration from ECG 25 SpO2 96 I&O: 10/08/20 10/09/20 10/10/20 06:59 06:59 06:59 Intake Total 480 480 Output Total 450 650 200 Balance -450 -170 280 Result Diagrams: 10/08/20 04:31 10/08/20 04:31 Additional Labs: I reviewed patient's labs and MAR EKG Reviewed by me: Yes (Normal sinus rhythm on telemetry) Hospitalist ROS - Review of Systems Cardiovascular: denies: chest pain, palpitations, orthopnea, paroxysmal noc. dyspnea, edema, light headedness Gastrointestinal: denies: nausea, vomiting, abdominal pain, diarrhea, constipation, melena, hematochezia - Medication Medications: Active Medications Generic Name Dose Route Start Last Admin Trade Name Freq PRN Reason Stop Dose Admin Acetaminophen 650 mg 09/28/20 13:54 10/07/20 16:36 Acetaminophen 325 Mg Tab PO 650 mg Q4H PRN Administration Headache/Fever/Mild Pain (1-3) Amlodipine Besylate 5 mg 10/04/20 21:00 10/09/20 08:45 Amlodipine 5 Mg Tab PO 5 mg BID TIANA Administration Aspirin 325 mg 09/29/20 09:00 10/09/20 08:46 Aspirin 325 Mg Enteric Coated Tablet PO 325 mg DAILY TIANA Administration Atorvastatin Calcium 40 mg 09/28/20 21:00 10/08/20 21:17 Atorvastatin Calcium 40 Mg Tab PO 40 mg HS TIANA Administration Bisacodyl 10 mg 09/28/20 13:54 10/04/20 12:55 Bisacodyl 5 Mg Tab PO 10 mg DAILYPRN PRN Administration Constipation Calcium Carbonate 500 mg 09/30/20 17:00 10/09/20 08:46 Calcium Carbonate 500 Mg Tab PO 500 mg BID-WM TIANA Administration Carvedilol 6.25 mg 10/02/20 21:00 10/09/20 08:45 Carvedilol 6.25 Mg Tab PO 6.25 mg BID TIANA Administration Enoxaparin Sodium 40 mg 09/30/20 21:00 10/05/20 09:35 Enoxaparin Sodium 40 Mg/0.4 Ml Syringe SC Not Given 899,2099 [facility] Ergocalciferol 1.25 mg 09/29/20 16:00 10/06/20 17:00 Ergocalciferol 1.25 Mg(50,000 Units) Cap PO 1.25 mg Q7DAYS@1600 TIANA Administration Furosemide 20 mg 10/03/20 09:00 10/09/20 08:45 Furosemide 20 Mg Tab PO 20 mg DAILY TIANA Administration Hydralazine HCl 10 mg 09/28/20 21:45 09/30/20 12:20 Hydralazine 20 Mg/Ml Vial SLOW IVP 10 mg Q1H PRN Administration Blood Pressure Nystatin/Triamcinolone Acetonide 1 gm 10/07/20 21:00 10/09/20 10:57 Nystatin/Triamcinolone Ointment 15 Gm Tube TOP 1 gm BID TIANA Administration Pantoprazole Sodium 40 mg 10/05/20 09:00 10/09/20 08:46 Pantoprazole 40 Mg Tab PO 40 mg DAILY TIANA Administration - Exam General - other findings: Morbid obesity ENT: no oropharyngeal lesions Neck: supple Heart: RRR Respiratory: CTAB Gastrointestinal: soft, non-tender Skin: no rashes Psychiatric: normal affect Hosp A/P - Plan Assessment/plan: (1) Acute on chronic respiratory failure with hypoxia and hypercapnia Code(s): J96.21 - ACUTE AND CHRONIC RESPIRATORY FAILURE WITH HYPOXIA; J96.22 - ACUTE AND CHRONIC RESPIRATORY FAILURE WITH HYPERCAPNIA Status: Acute Plan: --Cont BiBAP at bedtime and prn. (2) Non-ST elevation myocardial infarction (NSTEMI) Code(s): I21.4 - NON-ST ELEVATION (NSTEMI) MYOCARDIAL INFARCTION Status: Acute Plan: --Medical management (3) Acute diastolic CHF (congestive heart failure) Code(s): I50.31 - ACUTE DIASTOLIC (CONGESTIVE) HEART FAILURE Status: Acute --Stable, EF 55%, appears euvolemic. (4) Acute kidney injury Code(s): N17.9 - ACUTE KIDNEY FAILURE, UNSPECIFIED Status: Solved Plan: --resolved.
[2020-10-09] MEDS: Atorvastatin Calcium 40 MG TAB PO SCH (21:30)
[2020-10-10 05:26] VITALS: BMI 71.7
[2020-10-10] MEDS: Carvedilol 6.25 MG TAB PO SCH ×2 (08:16→20:34)
[2020-10-10] MEDS: Furosemide 20 MG TAB PO SCH (08:16)
[2020-10-10] MEDS: Aspirin 325 mg Enteric Coated Tablet PO SCH (08:16)
[2020-10-10] MEDS: Calcium Carbonate 500 MG TAB PO SCH ×2 (08:16→18:06)
[2020-10-10] MEDS: Nystatin/Triamcinolone Ointment 15 GM TUBE TOP SCH ×2 (08:17→20:35)
[2020-10-10] MEDS: Amlodipine 5 MG TAB PO SCH ×2 (09:06→20:33)
--- NOTE | 2020-10-10 15:17 | PDOC.HOSPP ---
- Subjective Encounter Date: 10/10/20 Encounter Time: 09:00 Subjective: Patient seen for follow-up regarding respiratory failure. She is still on supplemental oxygen. - Objective Vital Signs & Weight: Vital Signs (12 hours) Temp Pulse Resp BP BP Pulse Ox 10/10/20 12:04 98.2 F 97 16 125/70 97 10/10/20 09:06 126/79 10/10/20 08:16 126/79 10/10/20 07:17 98.1 F 66 17 129/69 95 Weight Admit Weight 445 lb 1.813 oz Weight 431 lb 3.2 oz Most Recent Monitor Data Heart Rate from ECG 62 NIBP 159/107 NIBP BP-Mean 124 Respiration from ECG 25 SpO2 96 I&O: 10/09/20 10/10/20 10/11/20 06:59 06:59 06:59 Intake Total 480 1057 480 Output Total 650 675 Balance -170 382 480 Result Diagrams: 10/08/20 04:31 10/08/20 04:31 Additional Labs: Labs and MAR reviewed by mi Hospitalist ROS - Review of Systems Cardiovascular: denies: chest pain, palpitations, orthopnea, paroxysmal noc. dyspnea, edema, light headedness Gastrointestinal: denies: nausea, vomiting, abdominal pain, diarrhea, constipation, melena, hematochezia - Medication Medications: Active Medications Generic Name Dose Route Start Last Admin Trade Name Freq PRN Reason Stop Dose Admin Acetaminophen 650 mg 09/28/20 13:54 10/07/20 16:36 Acetaminophen 325 Mg Tab PO 650 mg Q4H PRN Administration Headache/Fever/Mild Pain (1-3) Amlodipine Besylate 5 mg 10/04/20 21:00 10/10/20 09:06 Amlodipine 5 Mg Tab PO 5 mg BID TIANA Administration Aspirin 325 mg 09/29/20 09:00 10/10/20 08:16 Aspirin 325 Mg Enteric Coated Tablet PO 325 mg DAILY TIANA Administration Atorvastatin Calcium 40 mg 09/28/20 21:00 10/09/20 21:30 Atorvastatin Calcium 40 Mg Tab PO 40 mg HS TIANA Administration Bisacodyl 10 mg 09/28/20 13:54 10/04/20 12:55 Bisacodyl 5 Mg Tab PO 10 mg DAILYPRN PRN Administration Constipation Calcium Carbonate 500 mg 09/30/20 17:00 10/10/20 08:16 Calcium Carbonate 500 Mg Tab PO 500 mg BID-WM TIANA Administration Carvedilol 6.25 mg 10/02/20 21:00 10/10/20 08:16 Carvedilol 6.25 Mg Tab PO 6.25 mg BID TIANA Administration Enoxaparin Sodium 40 mg 09/30/20 21:00 10/05/20 09:35 Enoxaparin Sodium 40 Mg/0.4 Ml Syringe SC Not Given 0900,2100 [facility] Ergocalciferol 1.25 mg 09/29/20 16:00 10/06/20 17:00 Ergocalciferol 1.25 Mg(50,000 Units) Cap PO 1.25 mg Q7DAYS@1600 TIANA Administration Furosemide 20 mg 10/03/20 09:00 10/10/20 08:16 Furosemide 20 Mg Tab PO 20 mg DAILY TIANA Administration Hydralazine HCl 10 mg 09/28/20 21:45 09/30/20 12:20 Hydralazine 20 Mg/Ml Vial SLOW IVP 10 mg Q1H PRN Administration Blood Pressure Nystatin/Triamcinolone Acetonide 1 gm 10/07/20 21:00 10/10/20 08:17 Nystatin/Triamcinolone Ointment 15 Gm Tube TOP 1 gm BID ITANA Administration Pantoprazole Sodium 40 mg 10/05/20 09:00 10/10/20 08:16 Pantoprazole 40 Mg Tab PO 40 mg DAILY TIANA Administration - Exam General - other findings: Morbid obesity Neck: supple Heart: RRR Respiratory: CTAB Gastrointestinal: soft, non-tender Skin: no rashes Psychiatric: normal affect Hosp A/P - Plan Assessment/plan: (1) Acute on chronic respiratory failure with hypoxia and hypercapnia Code(s): J96.21 - ACUTE AND CHRONIC RESPIRATORY FAILURE WITH HYPOXIA; J96.22 - ACUTE AND CHRONIC RESPIRATORY FAILURE WITH HYPERCAPNIA Status: Acute Plan: --Cont BiBAP at bedtime and prn. --Try to wean patient off of supplemental oxygen. (2) Non-ST elevation myocardial infarction (NSTEMI) Code(s): I21.4 - NON-ST ELEVATION (NSTEMI) MYOCARDIAL INFARCTION Status: Acute Plan: --For medical management (3) Acute diastolic CHF (congestive heart failure) Code(s): I50.31 - ACUTE DIASTOLIC (CONGESTIVE) HEART FAILURE Status: Acute --Stable, EF 55%, appears euvolemic. (4) Acute kidney injury Code(s): N17.9 - ACUTE KIDNEY FAILURE, UNSPECIFIED Status: Solved Plan: --resolved.
[2020-10-10] MEDS: Atorvastatin Calcium 40 MG TAB PO SCH (20:34)
[2020-10-11] MEDS: Calcium Carbonate 500 MG TAB PO SCH ×2 (07:48→16:23)
[2020-10-11] MEDS: Aspirin 325 mg Enteric Coated Tablet PO SCH (07:49)
[2020-10-11] MEDS: Amlodipine 5 MG TAB PO SCH (07:49)
[2020-10-11] MEDS: Carvedilol 6.25 MG TAB PO SCH (07:49)
[2020-10-11] MEDS: Furosemide 20 MG TAB PO SCH (07:50)
[2020-10-11] MEDS: Nystatin/Triamcinolone Ointment 15 GM TUBE TOP SCH (07:50)
[2020-10-11 11:16] VITALS: TEMP 98.5
--- NOTE | 2020-10-11 12:31 | PDOC.DS.DS ---
Provider - Provider Date of Admission: 09/28/20 13:42 Date of Discharge: 10/11/20 Admitting Provider: Vaibhav Oconnell MD Consultations: Cardiology (Dr. Kelley), Nephrology (Dr. Cho), Pulmonary (Dr. Noble) Primary Care Physician: BRIJESH Terrell Course - Hospital Course Hospital Course: Discharge diagnoses: 1. Acute on chronic respiratory failure with hypoxia and hypercapnia 2. Non-ST elevation myocardial infarction type II 3. Acute diastolic congestive heart failure 4. Acute kidney injury 5. Hyperkalemia 6. Transaminitis 7. Obesity hypoventilation syndrome 8. Rhabdomyolysis 9. Morbid obesity with BMI greater than 70 10. Sepsis secondary to staphylococcal bacteremia 11. Acute metabolic encephalopathy 12. Metabolic acidosis 13. COVID-19 PCR test negative 14. Influenza test negative 15. Viral hepatitis test negative Hospital course: Patient is a pleasant 54-year-old lady who was admitted to the hospital on September 28, 2020 for non-ST elevation myocardial infarction, acute kidney injury, hyperkalemia and abnormal liver function tests. She was also lethargic. Arterial blood gases showed pH 7.24, PCO2 79 and PO2 69.1. She was seen by pulmonary, cardiology and nephrology services. It was felt that her troponin elevation was secondary to non-ST elevation myocardial infarction type II. 2D echocardiogram showed left ventricle ejection fraction of 55 to 60%, moderately enlarged right ventricular cavity, moderately reduced right ventricle systolic function, mildly dilated left atrium, moderately enlarged right atrium, mild mitral regurgitation and mild tricuspid regurgitation. She was treated with BiPAP therapy. Her acute kidney injury was felt to be due to hemodynamic factors related to dehydration and NSAID use as well as rhabdomyolysis. The acute kidney injury resolved. She continued to improve and was transferred to the telemetry floor. She was seen by therapy services and wa s recommended rehab versus prison. She could not participate in the duration of therapy required for inpatient rehab. Her insurance did not cover prison. At the time of this dictation, case management is exploring the option of home health for prison and physical therapy. Arrangements are being made for oxygen therapy at home. She will need to have a follow-up appointment with her sleep specialist so that she can be started on BiPAP therapy at home. Many thanks for allowing me to participate in your patient's care. Please feel free to contact me with any questions or concerns. Discharge destination: Home Total amount of time spent coordinating this discharge: 33 minutes Resuscitation Status: 10/07/20 14:02 Resuscitation Status Routine Resuscitation Status: DNAR: NO Resuscitation Discussed with: patient and her mother Additional comments: Updated - Labs Lab Results: 10/08/20 04:31 10/08/20 04:31 Microbiology - Entire Visit 10/07/20 20:00 Stool - Final 09/28/20 21:41 Venous blood - Neck Blood Culture - Final Alpha-Strep, not S. pneumoniae Staphylococcus epidermidis 09/28/20 01:20 Venous blood - Pending Blood Culture - Final Staphylococcus epidermidis Coagulase Neg Staphylococcus 09/29/20 01:30 Urine henson catheter Urine Culture - Final NO GROWTH AT 36 HOURS - Physical Exam Vitals: Vital Signs (12 hours) Temp Pulse Resp BP Pulse Ox 10/11/20 11:15 98.5 F 65 18 133/65 92 L 10/11/20 07:28 98.3 F 64 16 125/89 97 10/11/20 04:00 98.5 F 65 20 124/59 L 96 Weight Admit Weight 445 lb 1.813 oz Weight 431 lb 4 oz Most Recent Monitor Data Heart Rate from ECG 62 NIBP 159/107 NIBP BP-Mean 124 Respiration from ECG 25 SpO2 96 Physical Exam: The patient was seen and examined on the day of discharge. Patient denies chest pain or shortness of breath. Vital signs are stable. S1 and S2 are heard. Lungs are clear to auscultation bilaterally. Plan - Discharge Medications Prescriptions: Carvedilol [Coreg] 6.25 mg PO BID #60 tab Ergocalciferol [Drisdol] 1.25 mg PO Q7DAYS@1600 #4 cap Furosemide [Lasix] 20 mg PO DAILY #30 tab Atorvastatin Calcium [Lipitor] 40 mg PO HS #30 tab Nystatin/Triamcin [Mycogen II Ointment] 1 gm TOP BID #1 tube Amlodipine [Norvasc] 5 mg PO BID #60 tab Calcium Carbonate [Oscal-500] 500 mg PO BID-WM #60 tab Pantoprazole [Protonix] 40 mg PO DAILY #30 tab Home Medications: Medication Instructions Recorded Confirmed Type Amlodipine [Norvasc] 5 mg PO BID #60 tab 10/11/20 Rx Aspirin [Ecotrin Regular Strength] 325 mg PO DAILY tab 10/11/20 Rx Atorvastatin Calcium [Lipitor] 40 mg PO HS #30 tab 10/11/20 Rx Calcium Carbonate [Oscal-500] 500 mg PO BID-WM #60 tab 10/11/20 Rx Carvedilol [Coreg] 6.25 mg PO BID #60 tab 10/11/20 Rx Ergocalciferol [Drisdol] 1.25 mg PO Q7DAYS@1600 #4 cap 10/11/20 Rx Furosemide [Lasix] 20 mg PO DAILY #30 tab 10/11/20 Rx Nystatin/Triamcin [Mycogen II 1 gm TOP BID #1 tube 10/11/20 Rx Ointment] Pantoprazole [Protonix] 40 mg PO DAILY #30 tab 10/11/20 Rx Allergies: codeine Allergy (Verified 09/28/20 13:53) lisinopril Allergy (Verified 09/28/20 13:53) - Discharge Instructions Discharge Instructions:: Follow-up with your sleep specialist for outpatient sleep study. - Follow up Plan Referrals: Cardiac Rehab - [facility] [Outside] - 7 Days (Your doctor has ordered outpatient cardiac rehab for you to begin within 1-2 weeks after you go home from the hospital. The location nearest to you is the [facility]. We will call you in 3-5 days to get you scheduled for your evaluation. If you do not receive a call, please reach out to us at [phone] and request an appointment.) [facility] [Outside] (HOME OXYGEN) Jonathan Bowers MD [Active] - 7 Days (Please follow-up within 1-2 weeks.) Renu Guadarrama FNP [Primary Care Provider] - 3 Days (Please follow-up within 3 days.) Disposition: HOME HEALTH Quality - Care Measures CORE MEASURES:: AMI - Stroke/TIA Did you prescribe antithrombotic therapy?: Yes Did you prescribe anticoagulant for A Fib/Flutter?: No Specify reason for no DC anticoagulant: Treatment not indicated Did you prescribe a statin medication?: Yes
[2020-10-11 15:40] VITALS: BP 119/65
== END 2020-10-11 19:04 | disposition home health service (06) | DRG 871 ==
LOC: ERS 10:47 → 2NO 13:42 → CCU 20:47 → 2NO 10-02 12:26
PROVIDERS: ADMIT Internal Medicine; ATTEND Internal Medicine
PROC: 5A09357 Assistance with Respiratory Ventilation, Less than 24 Consecutive Hours, Continuous Positive Airway Pressure (ICD-10-PCS; principal; 2020-09-28)
PROC: 0T9B70Z Drainage of Bladder with Drainage Device, Via Natural or Artificial Opening (ICD-10-PCS; 2020-09-28)
DX: A41.1 Sepsis due to other specified staphylococcus (principal); Z66 Do not resuscitate; Z51.5 Encounter for palliative care; Z20.822 Contact with and (suspected) exposure to COVID-19; J96.21 Acute and chronic respiratory failure with hypoxia; J96.22 Acute and chronic respiratory failure with hypercapnia; I21.A1 Myocardial infarction type 2; I50.33 Acute on chronic diastolic (congestive) heart failure; G93.41 Metabolic encephalopathy; I50.31 Acute diastolic (congestive) heart failure; N17.9 Acute kidney failure, unspecified; E66.2 Morbid (severe) obesity with alveolar hypoventilation; E87.4 Mixed disorder of acid-base balance; M62.82 Rhabdomyolysis; K92.1 Melena; Z68.45 Body mass index [BMI] 70 or greater, adult; E87.5 Hyperkalemia; R74.01 Elevation of levels of liver transaminase levels; I08.1 Rheumatic disorders of both mitral and tricuspid valves; I11.0 Hypertensive heart disease with heart failure; M19.90 Unspecified osteoarthritis, unspecified site; R94.5 Abnormal results of liver function studies; E86.0 Dehydration; T39.395A Adverse effect of other nonsteroidal anti-inflammatory drugs [NSAID], initial encounter; K76.0 Fatty (change of) liver, not elsewhere classified; E55.9 Vitamin D deficiency, unspecified; R00.1 Bradycardia, unspecified; Z79.899 Other long term (current) drug therapy; Z90.49 Acquired absence of other specified parts of digestive tract; Z88.5 Allergy status to narcotic agent; Z88.8 Allergy status to other drugs, medicaments and biological substances; Z91.19 Patient's noncompliance with other medical treatment and regimen
CPT/HCPCS: 0240U; 36415; 36600; 71045; 72020; 72170; 76856; 80048; 80053; 80061; 80074; 80076; 80202; 80306; 81001; 82270; 82306; 82550; 82553; 82570; 82805; 83880; 84300; 84484; 84540; 85014; 85018; 85025; 85027; 85049; 85730; 87040; 87077; 87086; 87149; 87186; 93005; 93306; 93975; 94640; 94660; 96365; 96366; 96372; J0360; J0696; J1644; J1650; J1940; J2185; J2270; J3370; J3490; J7030; J7611

== ENCOUNTER 2021-06-20 09:29 | Observation (INO) | payer OTHER ==
[2021-06-20 10:55] LABS: Hemoglobin 12.6 g/dL (12.0-16.0); Mean Corpuscular Hemoglobin 31.9 pg (27.0-31.0); Mean Corpuscular Volume 96.7 fL (78.0-98.0); Red Blood Cell (RBC) Count 3.95 mill/uL (4.20-5.40); White Blood Cell (WBC) Count 9.9 thou/uL (4.8-10.8)
[2021-06-20 11:08] LABS: #Lymphocytes 0.7 thou/uL (1.20-3.40); #Monocytes 0.8 thou/uL (0.11-0.59); #Neutrophils 8.5 thou/uL (1.40-6.50); %Basophils 0.4 % (0.0-1.0); %Eosinophils 0.1 % (0.0-10.0); %Lymphocytes 6.5 % (21.0-51.0); %Monocytes 7.9 % (0.0-10.0); %Neutrophils 85.1 % (42.0-75.0); Mean Platelet Volume 8.6 fL (7.4-10.4); Platelet Count 69 thou/uL (130-400); Platelet Morphology Comment Appears Decreased
[2021-06-20 11:11] LABS: ALT (SGPT) 27 U/L (8-55); AST (SGOT) 50 U/L (5-34); Alkaline Phosphatase 75 U/L (40-110); Anion Gap 13 mmol/L (10-20); BUN (Urea Nitrogen) 19 mg/dL (9.8-20.1); CK (CPK) 382 U/L (29-168); Calc. Creatinine Clearance 0 mL/min (70-130); Calcium 8.1 mg/dL (7.8-10.44); Carbon Dioxide 28 mmol/L (22-29); Chloride 104 mmol/L (98-107); Globulin 3.3 g/dL (2.4-3.5); Glucose 119 mg/dL (70-105); Potassium 3.8 mmol/L (3.5-5.1); Protein, Total 6.3 g/dL (6.0-8.3); Sodium 141 mmol/L (136-145)
[2021-06-20 11:32] LABS: CKMB 2.4 ng/mL (0-6.6)
[2021-06-20] MEDS ORDERED: HYDROcodone/Acetaminophen 5/325 mg Tablet ONE (13:51)
[2021-06-20 14:56] LABS: Troponin I 0.103 ng/mL (< 0.028)
[2021-06-20] MEDS ORDERED: Senokot S 8.6-50 MG TAB PO PRN (16:44)
[2021-06-20] MEDS ORDERED: Ondansetron ODT 4 MG TAB PO PRN (16:44)
[2021-06-20] MEDS ORDERED: Ondansetron PF 4 MG/2 ML Vial IVP PRN (16:44)
[2021-06-20] MEDS ORDERED: Aspirin 325 MG TAB ONE (16:44)
[2021-06-20] MEDS ORDERED: Acetaminophen 325 MG TAB PO PRN (16:44)
[2021-06-20] MEDS ORDERED: Sodium Chloride 0.9% 1,000 ML IV SCH (16:45)
[2021-06-20 17:53] LABS: Hemoglobin A1c 5.3 % (4.0-6.0)
[2021-06-20] MEDS ORDERED: hydrALAZINE 20 MG/ML VIAL SLOW IVP PRN (17:53)
[2021-06-20] MEDS ORDERED: Acetaminophen 325 MG TAB ONE (18:39)
[2021-06-20 18:43] LABS: ALT (SGPT) 28 U/L (8-55); AST (SGOT) 54 U/L (5-34); Albumin 2.9 g/dL (3.5-5.0); Alkaline Phosphatase 68 U/L (40-110); Anion Gap 10 mmol/L (10-20); BUN (Urea Nitrogen) 22 mg/dL (9.8-20.1); Bilirubin, Total 2.9 mg/dL (0.2-1.2); Calc. Creatinine Clearance 0 mL/min (70-130); Calcium 8.1 mg/dL (7.8-10.44); Carbon Dioxide 31 mmol/L (22-29); Chloride 104 mmol/L (98-107); Globulin 3.1 g/dL (2.4-3.5); Glucose 118 mg/dL (70-105); Potassium 3.8 mmol/L (3.5-5.1); Sodium 141 mmol/L (136-145)
[2021-06-20 18:58] LABS: Troponin I 0.091 ng/mL (< 0.028)
[2021-06-20 21:00] LABS: Troponin I 0.076 ng/mL (< 0.028)
[2021-06-20 21:49] LABS: SARS-CoV-2 NAA Rapid Test Not Detected (NotDetected)
[2021-06-20] MEDS: Sodium Chloride 0.9% 1,000 ML IV SCH (23:22)
[2021-06-20] MEDS: traMADol HCl 50 MG TAB PO PRN (23:29)
[2021-06-20 23:41] VITALS: BMI 75.0
[2021-06-21] MEDS: traMADol HCl 50 MG TAB PO PRN ×2 (05:28→14:59)
[2021-06-21 05:48] LABS: #Eosinphils 0.1 thou/uL (0.0-0.7); #Lymphocytes 0.9 thou/uL (1.20-3.40); #Monocytes 0.7 thou/uL (0.11-0.59); #Neutrophils 5.2 thou/uL (1.40-6.50); %Basophils 0.5 % (0.0-1.0); %Eosinophils 0.8 % (0.0-10.0); %Lymphocytes 13.5 % (21.0-51.0); %Monocytes 10.5 % (0.0-10.0); %Neutrophils 74.7 % (42.0-75.0); Mean Corpuscular HGB CONC 31.7 g/dL (32.0-36.0); Mean Corpuscular Hemoglobin 31.4 pg (27.0-31.0); Mean Platelet Volume 9.4 fL (7.4-10.4); Platelet Count 74 thou/uL (130-400); RBC Distribution Width 14.4 % (11.5-14.5); Red Blood Cell (RBC) Count 3.82 mill/uL (4.20-5.40)
[2021-06-21 06:06] LABS: Bacteria/HPF None Seen HPF (None Seen); Bilirubin Negative (Negative); Blood, Urine Negative (Negative); Clarity Clear (Clear); Glucose, Urine (Dipstick) Normal (Negative); Ketone, Urine Trace mg/dL (Negative); Leukocyte Negative Leu/uL (Negative); Mucous/LPF 3+ LPF (<2+); Nitrite Negative (Negative); Protein, Urine (Dipstick) 50 mg/dL (Neg-Trace); RBC/HPF 0-3 HPF (0-3); Specific Gravity, Urine 1.034 (1.002-1.036); Squamous Epithelial 0-3 HPF (0-3); Urobilinogen 3 mg/dL (Less than 2); WBC/HPF 0-3 HPF (0-3)
[2021-06-21 06:07] LABS: Urine Culture Reflex No No
[2021-06-21 06:16] LABS: Cardiac Risk 2.9 (Less than 4.5)
[2021-06-21] MEDS: Sodium Chloride 0.9% 1,000 ML IV SCH ×2 (10:21→20:39)
[2021-06-21] MEDS ORDERED: Furosemide 20 MG TAB PO SCH (13:00)
[2021-06-21] MEDS: Carvedilol 6.25 MG TAB PO SCH (20:38)
[2021-06-21] MEDS ORDERED: Atorvastatin Calcium 40 MG TAB PO SCH (21:00)
[2021-06-22 04:34] LABS: #Eosinphils 0.3 thou/uL (0.0-0.7); #Lymphocytes 1.6 thou/uL (1.20-3.40); #Monocytes 1.3 thou/uL (0.11-0.59); #Neutrophils 5.9 thou/uL (1.40-6.50); %Basophils 0.5 % (0.0-1.0); %Eosinophils 3.4 % (0.0-10.0); %Lymphocytes 17.3 % (21.0-51.0); %Monocytes 13.8 % (0.0-10.0); %Neutrophils 65.1 % (42.0-75.0); Hemoglobin 12.2 g/dL (12.0-16.0); Mean Corpuscular HGB CONC 31.9 g/dL (32.0-36.0); Mean Corpuscular Hemoglobin 32.2 pg (27.0-31.0); Mean Platelet Volume 9.9 fL (7.4-10.4); Platelet Count 72 thou/uL (130-400); RBC Distribution Width 14.6 % (11.5-14.5)
[2021-06-22 05:06] LABS: Anion Gap 13 mmol/L (10-20); BUN (Urea Nitrogen) 21 mg/dL (9.8-20.1); CK (CPK) 889 U/L (29-168); Calc. Creatinine Clearance 264 mL/min (70-130); Calcium 8.1 mg/dL (7.8-10.44); Carbon Dioxide 28 mmol/L (22-29); Chloride 104 mmol/L (98-107); Glucose 146 mg/dL (70-105); Potassium 5.5 mmol/L (3.5-5.1); Sodium 139 mmol/L (136-145)
[2021-06-22] MEDS: traMADol HCl 50 MG TAB PO PRN (08:55)
[2021-06-22] MEDS: Carvedilol 6.25 MG TAB PO SCH (08:55)
[2021-06-22] MEDS: Sodium Chloride 0.9% 1,000 ML IV SCH (08:56)
[2021-06-22] MEDS ORDERED: Aspirin 325 mg Enteric Coated Tablet PO SCH (09:00)
[2021-06-22] MEDS ORDERED: Furosemide 20 MG TAB PO SCH ×2 (09:00)
[2021-06-22 15:51] VITALS: BP 136/73; TEMP 97.9
[2021-06-22] MEDS ORDERED: Ergocalciferol 1.25 MG(50,000 UNITS) CAP PO SCH (16:00)
== END 2021-06-22 18:59 | disposition home or self-care (01) ==
LOC: ERS 09:29 → ERHOLD 15:49 → 2NO 21:45
PROVIDERS: ADMIT Internal Medicine; ATTEND Internal Medicine
DX: M62.82 Rhabdomyolysis (principal); I21.A1 Myocardial infarction type 2; S80.02XA Contusion of left knee, initial encounter; M25.851 Other specified joint disorders, right hip; M25.561 Pain in right knee; M54.5 Low back pain; D69.6 Thrombocytopenia, unspecified; I16.0 Hypertensive urgency; I11.0 Hypertensive heart disease with heart failure; I50.30 Unspecified diastolic (congestive) heart failure; J96.22 Acute and chronic respiratory failure with hypercapnia; J96.21 Acute and chronic respiratory failure with hypoxia; R94.5 Abnormal results of liver function studies; E78.5 Hyperlipidemia, unspecified; R73.09 Other abnormal glucose; E66.2 Morbid (severe) obesity with alveolar hypoventilation; Z68.45 Body mass index [BMI] 70 or greater, adult; Z20.822 Contact with and (suspected) exposure to COVID-19; Z88.5 Allergy status to narcotic agent; Z88.8 Allergy status to other drugs, medicaments and biological substances; Z91.19 Patient's noncompliance with other medical treatment and regimen; Z74.01 Bed confinement status; Z99.81 Dependence on supplemental oxygen; W01.0XXA Fall on same level from slipping, tripping and stumbling without subsequent striking against object, initial encounter; Y92.009 Unspecified place in unspecified non-institutional (private) residence as the place of occurrence of the external cause
CPT/HCPCS: 36415; 71045; 80048; 80053; 80061; 81001; 82550; 82553; 83036; 83880; 84484; 85025; 93005; 94760; 96376; G0378; J0360; J7050; U0002

== ENCOUNTER 2021-07-01 12:18 | Inpatient (IN) | payer OTHER ==
[2021-07-01] MEDS ORDERED: EPINEPHrine 1 MG/ML VIAL ONE (12:29)
[2021-07-01] MEDS ORDERED: Midazolam HCl 5 mg/ml Vial ONE (12:36)
[2021-07-01] MEDS ORDERED: methylPREDNISolone Sod Succ/PF 125 MG/2 ML VIAL ONE (12:46)
[2021-07-01] MEDS ORDERED: diphenhydrAMINE 50 MG/ML VIAL ONE (12:46)
[2021-07-01] MEDS ORDERED: Famotidine/PF 20 mg/2ml Vial ONE (12:46)
[2021-07-01 12:48] LABS: Actual Bicarbonate (HCO3a) 41.5 mEq/L (22-28); Analyzer IN Cardio ER; Base Excess (BEa) 12.7 mEq/L (-2.0 to +3.0); Calcium, Ionized (arterial) 1.14 mmol/L (1.12-1.30); Carboxyhemoglobin (COHb) 2.5 gm% (0.0-3.0); Hemoglobin (Hb) 13.5 g/dL (12.0-16.0); O2 Tension (PaO2), arterial 64.4 mmHg (80.0-100.0); Potassium - ABG Lab 4.63 mmol/L (3.70-5.30); Puncture Site LRA; pH, Arterial 7.36 (7.35-7.45)
[2021-07-01] MEDS ORDERED: Fentanyl 100 MCG/2 ML VIAL ONE ×2 (12:49→13:06)
[2021-07-01] MEDS ORDERED: Propofol 1,000 MG/100 ML VIAL IV ONE ×3 (13:15→17:55)
[2021-07-01] MEDS ORDERED: fentaNYL Citrate/PF 2,000 MCG in Sodium Chloride 0.9% 60 ML IV SCH (13:15)
[2021-07-01 14:27] LABS: ALT (SGPT) 28 U/L (8-55); AST (SGOT) 31 U/L (5-34); Albumin 3.1 g/dL (3.5-5.0); Alkaline Phosphatase 80 U/L (40-110); BUN (Urea Nitrogen) 17 mg/dL (9.8-20.1); Bilirubin, Total 3.1 mg/dL (0.2-1.2); CK (CPK) 55 U/L (29-168); Calc. Creatinine Clearance 0 mL/min (70-130); Calcium 8.9 mg/dL (7.8-10.44); Globulin 3.7 g/dL (2.4-3.5); Glucose 132 mg/dL (70-105); Lipase 26 U/L (8-78); Protein, Total 6.8 g/dL (6.0-8.3)
[2021-07-01 14:37] LABS: Anion Gap 16 mmol/L (10-20); Carbon Dioxide 40 mmol/L (22-29); Chloride 96 mmol/L (98-107); Potassium 4.8 mmol/L (3.5-5.1); Sodium 147 mmol/L (136-145)
[2021-07-01 14:59] LABS: #Basophils 0.1 thou/uL (0.0-0.2); #Lymphocytes 0.6 thou/uL (1.20-3.40); #Monocytes 0.6 thou/uL (0.11-0.59); #Neutrophils 11.1 thou/uL (1.40-6.50); %Basophils 0.9 % (0.0-1.0); %Eosinophils 0.4 % (0.0-10.0); %Lymphocytes 4.4 % (21.0-51.0); %Monocytes 4.9 % (0.0-10.0); %Neutrophils 89.4 % (42.0-75.0); Hemoglobin 12.1 g/dL (12.0-16.0); Mean Corpuscular HGB CONC 32.2 g/dL (32.0-36.0); Mean Corpuscular Hemoglobin 33.1 pg (27.0-31.0); Mean Platelet Volume 8.7 fL (7.4-10.4); Platelet Count 111 thou/uL (130-400); RBC Distribution Width 16.1 % (11.5-14.5); Red Blood Cell (RBC) Count 3.65 mill/uL (4.20-5.40); White Blood Cell (WBC) Count 12.4 thou/uL (4.8-10.8)
[2021-07-01 15:08] LABS: Bacteria/HPF 4+ HPF (None Seen); Bilirubin Negative (Negative); Blood, Urine Trace (Negative); Clarity Turbid (Clear); Glucose, Urine (Dipstick) Normal (Negative); Ketone, Urine Negative (Negative); Leukocyte Negative Leu/uL (Negative); Nitrite 2+ (Negative); Protein, Urine (Dipstick) 50 mg/dL (Neg-Trace); RBC/HPF 0-3 HPF (0-3); Specific Gravity, Urine 1.021 (1.002-1.036); Urobilinogen 3 mg/dL (Less than 2); WBC/HPF 0-3 HPF (0-3); Yeast-Budding 1+ HPF (None Seen); pH, Urine 5.5 (5.0-9.0)
[2021-07-01 15:30] LABS: Actual Bicarbonate (HCO3a) 41.3 mEq/L (22-28); Analyzer IN Cardio ER; Base Excess (BEa) 11.1 mEq/L (-2.0 to +3.0); Carboxyhemoglobin (COHb) 1.8 gm% (0.0-3.0); O2 Tension (PaO2), arterial 66.9 mmHg (80.0-100.0); Potassium - ABG Lab 4.46 mmol/L (3.70-5.30); pH, Arterial 7.29 (7.35-7.45)
[2021-07-01 15:31] LABS: CO2 Tension 88.2 mmHg (35.0-45.0); Puncture Site RRA
[2021-07-01] MEDS ORDERED: Electrolyte Replacement Protocol 1 EACH FS ONE (15:59)
[2021-07-01] MEDS ORDERED: Ventilator Sedation Protocol 1 EACH FS ONE (15:59)
[2021-07-01] MEDS ORDERED: Norepinephrine 8 MG/0.9% NS 250 ML IVPB SCH (16:00)
[2021-07-01] MEDS ORDERED: cefTRIAXone\\ROCEPHIN 2 GM in Sodium Chloride 0.9% 100 ML IVPB SCH (16:00)
[2021-07-01] MEDS ORDERED: Sodium Chloride 0.9% 1,000 ML IV SCH (16:00)
[2021-07-01 16:44] LABS: SARS-CoV-2 NAA Rapid Test Not Detected (NotDetected)
[2021-07-01 17:27] LABS: Lactic Acid 6.2 mmol/L (0.5-2.2)
[2021-07-01] MEDS ORDERED: Vancomycin 1 GM in Premix Bag 1 BAG IVPB SCH (17:30)
[2021-07-01] MEDS ORDERED: Acetaminophen 325 MG TAB PO PRN (17:36)
[2021-07-01] MEDS ORDERED: Acetaminophen 650 MG Suppository PR PRN (17:36)
[2021-07-01] MEDS ORDERED: Ondansetron PF 4 MG/2 ML Vial IVP PRN (17:36)
[2021-07-01] MEDS ORDERED: Fentanyl BOLUS 250 ML IVPB PRN (18:15)
[2021-07-01] MEDS ORDERED: Propofol BOLUS 1,000 MG/100 ML VIAL IV PRN (18:15)
[2021-07-01] MEDS ORDERED: Electrolyte Replacement Protocol FS PRN (18:15)
[2021-07-01] MEDS ORDERED: DISCONTINUE PREVIOUS NARCOTIC PAIN MEDICATIONS AND BENZODIAZEPINES FS SCH (18:15)
[2021-07-01] MEDS ORDERED: Morphine 2 MG/ML VIAL SLOW IVP PRN (18:15)
[2021-07-01] MEDS: Lactated Ringer's 1,000 ML IV SCH (18:37)
[2021-07-01] MEDS: Lorazepam 2 MG/ML VIAL SLOW IVP PRN (18:38)
[2021-07-01] MEDS: methylPREDNISolone Sod Succ 40 MG VIAL IVP SCH (18:38)
[2021-07-01] MEDS: Micafungin 150 MG in Sodium Chloride 0.9% 100 ML IVPB SCH (18:41)
[2021-07-01] MEDS: Propofol 1,000 MG/100 ML VIAL IV PRN ×2 (20:19→22:34)
[2021-07-01] MEDS: Cefepime 2 GM in Sodium Chloride 0.9% 100 ML IVPB SCH (20:48)
[2021-07-01] MEDS ORDERED: Fentanyl CADD 100 ML ONE (23:56)
[2021-07-02] MEDS: Fentanyl CADD 100 ML IV SCH ×2 (00:02→16:05)
[2021-07-02] MEDS: methylPREDNISolone Sod Succ 40 MG VIAL IVP SCH ×4 (00:32→17:13)
[2021-07-02] MEDS: Propofol 1,000 MG/100 ML VIAL IV PRN ×10 (00:33→23:53)
[2021-07-02] MEDS: Lactated Ringer's 1,000 ML IV SCH ×4 (03:15→14:48)
[2021-07-02 04:57] LABS: Lactic Acid 5.9 mmol/L (0.5-2.2)
[2021-07-02 04:59] LABS: ALT (SGPT) 24 U/L (8-55); AST (SGOT) 35 U/L (5-34); Albumin 2.8 g/dL (3.5-5.0); Alkaline Phosphatase 67 U/L (40-110); Anion Gap 17 mmol/L (10-20); BUN (Urea Nitrogen) 24 mg/dL (9.8-20.1); Bilirubin, Total 3.4 mg/dL (0.2-1.2); Calc. Creatinine Clearance 149 mL/min (70-130); Calcium 8.7 mg/dL (7.8-10.44); Carbon Dioxide 34 mmol/L (22-29); Chloride 97 mmol/L (98-107); Globulin 3.2 g/dL (2.4-3.5); Glucose 148 mg/dL (70-105); Potassium 4.9 mmol/L (3.5-5.1); Sodium 143 mmol/L (136-145)
[2021-07-02 05:03] LABS: Band 1 % (5-11); Eosinophils 2 % (0-10); Hemoglobin 11.7 g/dL (12.0-16.0); Lymphocytes 9 % (21-51); MDiff Complete? YES; Mean Corpuscular HGB CONC 31.6 g/dL (32.0-36.0); Mean Corpuscular Hemoglobin 32.5 pg (27.0-31.0); Mean Platelet Volume 9.1 fL (7.4-10.4); Metamyelocyte 1 % (0-0); Neutrophil 87 % (42-75); Nucleated RBC 1 % (0); Platelet Count 105 thou/uL (130-400); Platelet Morphology Comment Appears Decreased; RBC Distribution Width 16.4 % (11.5-14.5); White Blood Cell (WBC) Count 11.5 thou/uL (4.8-10.8)
[2021-07-02] MEDS ORDERED: Sodium Chloride 0.9% 500 ML IV SCH (05:30)
[2021-07-02 07:38] LABS: Actual Bicarbonate (HCO3a) 29.2 mEq/L (22-28); Base Excess (BEa) 12.3 mEq/L (-2.0 to +3.0); Calcium, Ionized (arterial) 0.98 mmol/L (1.12-1.30); Carboxyhemoglobin (COHb) 0.7 gm% (0.0-3.0); Hemoglobin (Hb) 15.4 g/dL (12.0-16.0); Potassium - ABG Lab 4.66 mmol/L (3.70-5.30)
[2021-07-02 08:04] LABS: CO2 Tension 20.1 mmHg (35.0-45.0); O2 Tension (PaO2), arterial 54.9 mmHg (80.0-100.0); pH, Arterial 7.78 (7.35-7.45)
[2021-07-02 08:05] LABS: ALV-art Gradient 383.425 mmHg (0-20); Puncture Site RRA
[2021-07-02] MEDS: Cefepime 2 GM in Sodium Chloride 0.9% 100 ML IVPB SCH ×2 (08:22→20:36)
[2021-07-02] MEDS: Enoxaparin Sodium 40 MG/0.4 ML SYRINGE SC SCH (08:22)
[2021-07-02] MEDS: Pantoprazole 40 MG VIAL IVP SCH (08:23)
[2021-07-02] MEDS ORDERED: FLU VACC QS2021-22(6MOS UP)/PF 60 MCG/0.5 ML SYRINGE IM ONE (09:00)
[2021-07-02] MEDS: Polyethylene Glycol 3350 17 GM Packet PER TUBE SCH (11:09)
[2021-07-02] MEDS ORDERED: Fentanyl CADD 100 ML ONE (15:57)
[2021-07-02] MEDS: Micafungin 150 MG in Sodium Chloride 0.9% 100 ML IVPB SCH (17:35)
[2021-07-03] MEDS: methylPREDNISolone Sod Succ 40 MG VIAL IVP SCH ×4 (00:23→20:02)
[2021-07-03] MEDS: Propofol 1,000 MG/100 ML VIAL IV PRN ×8 (02:38→22:11)
[2021-07-03 05:54] LABS: #Lymphocytes 0.8 thou/uL (1.20-3.40); #Monocytes 0.6 thou/uL (0.11-0.59); #Neutrophils 13.9 thou/uL (1.40-6.50); %Basophils 0.1 % (0.0-1.0); %Eosinophils 0.1 % (0.0-10.0); %Monocytes 3.7 % (0.0-10.0); %Neutrophils 91.1 % (42.0-75.0); Hemoglobin 11.5 g/dL (12.0-16.0); Mean Corpuscular HGB CONC 32.2 g/dL (32.0-36.0); Mean Corpuscular Hemoglobin 32.4 pg (27.0-31.0); Mean Platelet Volume 8.9 fL (7.4-10.4); Platelet Count 90 thou/uL (130-400); RBC Distribution Width 16.1 % (11.5-14.5); Red Blood Cell (RBC) Count 3.54 mill/uL (4.20-5.40); White Blood Cell (WBC) Count 15.2 thou/uL (4.8-10.8)
[2021-07-03 06:15] LABS: Vancomycin, Trough 37.7 ug/mL
[2021-07-03 07:49] LABS: Actual Bicarbonate (HCO3a) 37.1 mEq/L (22-28); Base Excess (BEa) 10.1 mEq/L (-2.0 to +3.0); Calcium, Ionized (arterial) 1.04 mmol/L (1.12-1.30); Carboxyhemoglobin (COHb) 0.9 gm% (0.0-3.0); Potassium - ABG Lab 4.37 mmol/L (3.70-5.30)
[2021-07-03 07:58] LABS: O2 Tension (PaO2), arterial 55.8 mmHg (80.0-100.0); Puncture Site LRA
[2021-07-03] MEDS: Enoxaparin Sodium 40 MG/0.4 ML SYRINGE SC SCH (09:37)
[2021-07-03] MEDS: Cefepime 2 GM in Sodium Chloride 0.9% 100 ML IVPB SCH ×2 (09:37→20:01)
[2021-07-03] MEDS: Pantoprazole 40 MG VIAL IVP SCH (09:37)
[2021-07-03] MEDS: Polyethylene Glycol 3350 17 GM Packet PER TUBE SCH (09:38)
[2021-07-03] MEDS ORDERED: Fentanyl CADD 100 ML ONE (10:22)
[2021-07-03] MEDS: Fentanyl CADD 100 ML IV SCH ×2 (10:45→23:23)
[2021-07-03] MEDS ORDERED: Furosemide 40 MG/4 ML VIAL SLOW IVP SCH (11:30)
[2021-07-03] MEDS: Lorazepam 2 MG/ML VIAL SLOW IVP PRN (14:01)
[2021-07-03] MEDS ORDERED: Vecuronium 10 MG VIAL ONE (14:26)
[2021-07-03] MEDS: Vecuronium 10 MG VIAL IVP PRN ×2 (14:36→16:18)
[2021-07-03 16:49] VITALS: BMI 76.3
[2021-07-03] MEDS: Micafungin 150 MG in Sodium Chloride 0.9% 100 ML IVPB SCH (17:06)
[2021-07-04] MEDS: Propofol 1,000 MG/100 ML VIAL IV PRN ×7 (01:05→20:08)
[2021-07-04 04:32] LABS: #Lymphocytes 0.8 thou/uL (1.20-3.40); #Monocytes 0.6 thou/uL (0.11-0.59); #Neutrophils 10.2 thou/uL (1.40-6.50); %Basophils 0.4 % (0.0-1.0); %Lymphocytes 6.7 % (21.0-51.0); %Monocytes 4.9 % (0.0-10.0); Hemoglobin 11.8 g/dL (12.0-16.0); Mean Corpuscular HGB CONC 31.9 g/dL (32.0-36.0); Mean Corpuscular Hemoglobin 31.6 pg (27.0-31.0); Mean Corpuscular Volume 99.3 fL (78.0-98.0); Mean Platelet Volume 9.3 fL (7.4-10.4); Platelet Count 93 thou/uL (130-400); RBC Distribution Width 16.4 % (11.5-14.5); Red Blood Cell (RBC) Count 3.74 mill/uL (4.20-5.40); White Blood Cell (WBC) Count 11.6 thou/uL (4.8-10.8)
[2021-07-04 04:35] LABS: Anion Gap 15 mmol/L (10-20); BUN (Urea Nitrogen) 56 mg/dL (9.8-20.1); Calc. Creatinine Clearance 120 mL/min (70-130); Calcium 8.5 mg/dL (7.8-10.44); Carbon Dioxide 34 mmol/L (22-29); Chloride 95 mmol/L (98-107); Glucose 151 mg/dL (70-105); Potassium 4.2 mmol/L (3.5-5.1); Sodium 140 mmol/L (136-145); Vancomycin, Random 27.7 ug/mL (See Comment)
[2021-07-04 07:59] LABS: Actual Bicarbonate (HCO3a) 30.5 mEq/L (22-28); Base Excess (BEa) 10.9 mEq/L (-2.0 to +3.0); Calcium, Ionized (arterial) 0.99 mmol/L (1.12-1.30); Carboxyhemoglobin (COHb) 0.2 gm% (0.0-3.0); Potassium - ABG Lab 3.79 mmol/L (3.70-5.30)
[2021-07-04 08:22] LABS: CO2 Tension 25.3 mmHg (35.0-45.0); O2 Tension (PaO2), arterial 44.2 mmHg (80.0-100.0); Puncture Site RRA
[2021-07-04 08:23] LABS: ALV-art Gradient 280.675 mmHg (0-20)
[2021-07-04] MEDS: Pantoprazole 40 MG VIAL IVP SCH (09:43)
[2021-07-04] MEDS: Enoxaparin Sodium 40 MG/0.4 ML SYRINGE SC SCH (09:44)
[2021-07-04] MEDS: methylPREDNISolone Sod Succ 40 MG VIAL IVP SCH ×2 (09:44→20:09)
[2021-07-04] MEDS: Cefepime 2 GM in Sodium Chloride 0.9% 100 ML IVPB SCH ×2 (09:44→20:08)
[2021-07-04] MEDS: Polyethylene Glycol 3350 17 GM Packet PER TUBE SCH (09:45)
[2021-07-04] MEDS ORDERED: Fentanyl CADD 100 ML ONE (14:21)
[2021-07-04] MEDS ORDERED: Morphine 4 MG/ML VIAL SLOW IVP PRN (14:30)
[2021-07-04] MEDS: Micafungin 150 MG in Sodium Chloride 0.9% 100 ML IVPB SCH (17:23)
[2021-07-04] MEDS ORDERED: Furosemide 20 MG/2 ML VIAL SLOW IVP SCH (23:59)
[2021-07-05] MEDS: Propofol 1,000 MG/100 ML VIAL IV PRN ×6 (03:41→20:20)
[2021-07-05] MEDS ORDERED: Fentanyl CADD 100 ML ONE ×2 (04:10→22:50)
[2021-07-05 04:23] LABS: #Lymphocytes 0.5 thou/uL (1.20-3.40); #Monocytes 0.5 thou/uL (0.11-0.59); #Neutrophils 8.9 thou/uL (1.40-6.50); %Lymphocytes 5.1 % (21.0-51.0); %Monocytes 4.6 % (0.0-10.0); %Neutrophils 90.3 % (42.0-75.0); Hemoglobin 11.7 g/dL (12.0-16.0); Mean Corpuscular HGB CONC 32.9 g/dL (32.0-36.0); Mean Corpuscular Hemoglobin 32.6 pg (27.0-31.0); Mean Corpuscular Volume 99.3 fL (78.0-98.0); Mean Platelet Volume 9.5 fL (7.4-10.4); Platelet Count 73 thou/uL (130-400); RBC Distribution Width 16.4 % (11.5-14.5); Red Blood Cell (RBC) Count 3.59 mill/uL (4.20-5.40); White Blood Cell (WBC) Count 9.9 thou/uL (4.8-10.8)
[2021-07-05] MEDS: Fentanyl CADD 100 ML IV SCH ×2 (04:23→22:56)
[2021-07-05 04:31] LABS: Anion Gap 13 mmol/L (10-20); BUN (Urea Nitrogen) 64 mg/dL (9.8-20.1); Calc. Creatinine Clearance 135 mL/min (70-130); Calcium 8.2 mg/dL (7.8-10.44); Carbon Dioxide 35 mmol/L (22-29); Chloride 95 mmol/L (98-107); Glucose 153 mg/dL (70-105); Potassium 4.3 mmol/L (3.5-5.1); Sodium 139 mmol/L (136-145)
[2021-07-05 08:13] LABS: Actual Bicarbonate (HCO3a) 34.7 mEq/L (22-28); Base Excess (BEa) 9.3 mEq/L (-2.0 to +3.0); CO2 Tension 50.3 mmHg (35.0-45.0); Calcium, Ionized (arterial) 1.04 mmol/L (1.12-1.30); Carboxyhemoglobin (COHb) 0.6 gm% (0.0-3.0); Hemoglobin (Hb) 12.1 g/dL (12.0-16.0); O2 Tension (PaO2), arterial 73.5 mmHg (80.0-100.0); Potassium - ABG Lab 4.27 mmol/L (3.70-5.30); Puncture Site LRA; pH, Arterial 7.46 (7.35-7.45)
[2021-07-05 08:14] LABS: ALV-art Gradient 148.825 mmHg (0-20)
[2021-07-05] MEDS ORDERED: Enoxaparin Sodium 60 MG/0.6 ML SYRINGE SC SCH (09:00)
[2021-07-05] MEDS: Cefepime 2 GM in Sodium Chloride 0.9% 100 ML IVPB SCH ×2 (09:02→20:20)
[2021-07-05] MEDS: methylPREDNISolone Sod Succ 40 MG VIAL IVP SCH (09:03)
[2021-07-05] MEDS: Enoxaparin Sodium 60 MG/0.6 ML SYRINGE SC SCH (09:03)
[2021-07-05] MEDS: Polyethylene Glycol 3350 17 GM Packet PER TUBE SCH (09:04)
[2021-07-05] MEDS: Pantoprazole 40 MG VIAL IVP SCH (09:04)
[2021-07-05 09:49] LABS: Triglycerides 196 mg/dL (Less than 150)
[2021-07-05] MEDS ORDERED: Bacteriostatic Water 30 ML VIAL FS PRN (12:45)
[2021-07-05] MEDS: Micafungin 150 MG in Sodium Chloride 0.9% 100 ML IVPB SCH (17:37)
[2021-07-06] MEDS: Propofol 1,000 MG/100 ML VIAL IV PRN ×6 (00:34→22:15)
[2021-07-06 04:36] LABS: #Lymphocytes 0.7 thou/uL (1.20-3.40); #Monocytes 0.9 thou/uL (0.11-0.59); #Neutrophils 6.9 thou/uL (1.40-6.50); %Eosinophils 0.2 % (0.0-10.0); %Lymphocytes 8.6 % (21.0-51.0); %Monocytes 10.6 % (0.0-10.0); %Neutrophils 80.7 % (42.0-75.0); Hemoglobin 11.6 g/dL (12.0-16.0); Mean Corpuscular HGB CONC 32.9 g/dL (32.0-36.0); Mean Corpuscular Hemoglobin 33.5 pg (27.0-31.0); Mean Platelet Volume 9.7 fL (7.4-10.4); Platelet Count 73 thou/uL (130-400); RBC Distribution Width 16.6 % (11.5-14.5); Red Blood Cell (RBC) Count 3.46 mill/uL (4.20-5.40); White Blood Cell (WBC) Count 8.5 thou/uL (4.8-10.8)
[2021-07-06 04:41] LABS: Anion Gap 14 mmol/L (10-20); BUN (Urea Nitrogen) 60 mg/dL (9.8-20.1); Calc. Creatinine Clearance 160 mL/min (70-130); Calcium 7.9 mg/dL (7.8-10.44); Carbon Dioxide 36 mmol/L (22-29); Chloride 95 mmol/L (98-107); Glucose 111 mg/dL (70-105); Potassium 4.2 mmol/L (3.5-5.1); Sodium 141 mmol/L (136-145)
[2021-07-06 07:45] LABS: Actual Bicarbonate (HCO3a) 33.9 mEq/L (22-28); Calcium, Ionized (arterial) 1.11 mmol/L (1.12-1.30); Hemoglobin (Hb) 12.5 g/dL (12.0-16.0); O2 Tension (PaO2), arterial 76.3 mmHg (80.0-100.0); Potassium - ABG Lab 4.06 mmol/L (3.70-5.30); pH, Arterial 7.33 (7.35-7.45)
[2021-07-06 08:19] LABS: CO2 Tension 66.1 mmHg (35.0-45.0)
[2021-07-06 08:20] LABS: ALV-art Gradient 126.275 mmHg (0-20); Puncture Site LRA
[2021-07-06 08:40] LABS: HSV 1 - DNA Negative (Negative); HSV 2 - DNA Negative (Negative)
[2021-07-06] MEDS ORDERED: methylPREDNISolone Sod Succ 40 MG VIAL IVP SCH (09:00)
[2021-07-06] MEDS: Cefepime 2 GM in Sodium Chloride 0.9% 100 ML IVPB SCH ×2 (09:51→20:39)
[2021-07-06] MEDS: Enoxaparin Sodium 60 MG/0.6 ML SYRINGE SC SCH (09:52)
[2021-07-06] MEDS: Pantoprazole 40 MG VIAL IVP SCH (09:53)
[2021-07-06] MEDS: methylPREDNISolone Sod Succ 40 MG VIAL IVP SCH (09:53)
[2021-07-06] MEDS: Polyethylene Glycol 3350 17 GM Packet PER TUBE SCH (09:54)
[2021-07-06] MEDS ORDERED: Fentanyl CADD 100 ML ONE (17:01)
[2021-07-06] MEDS: Micafungin 150 MG in Sodium Chloride 0.9% 100 ML IVPB SCH (17:25)
[2021-07-07] MEDS: Propofol 1,000 MG/100 ML VIAL IV PRN ×7 (01:15→21:06)
[2021-07-07 04:05] LABS: Anion Gap 12 mmol/L (10-20); BUN (Urea Nitrogen) 61 mg/dL (9.8-20.1); Calc. Creatinine Clearance 173 mL/min (70-130); Calcium 8.2 mg/dL (7.8-10.44); Carbon Dioxide 36 mmol/L (22-29); Chloride 97 mmol/L (98-107); Glucose 93 mg/dL (70-105); Potassium 4.7 mmol/L (3.5-5.1); Sodium 140 mmol/L (136-145)
[2021-07-07 04:58] LABS: #Basophils 0.1 thou/uL (0.0-0.2); #Eosinphils 0.1 thou/uL (0.0-0.7); #Neutrophils 6.6 thou/uL (1.40-6.50); %Basophils 0.6 % (0.0-1.0); %Eosinophils 1.1 % (0.0-10.0); %Lymphocytes 10.9 % (21.0-51.0); %Monocytes 11.5 % (0.0-10.0); Hemoglobin 11.6 g/dL (12.0-16.0); Mean Corpuscular HGB CONC 32.2 g/dL (32.0-36.0); Mean Corpuscular Hemoglobin 31.8 pg (27.0-31.0); Mean Platelet Volume 9.8 fL (7.4-10.4); Platelet Count 76 thou/uL (130-400); RBC Distribution Width 16.5 % (11.5-14.5); Red Blood Cell (RBC) Count 3.65 mill/uL (4.20-5.40); White Blood Cell (WBC) Count 8.7 thou/uL (4.8-10.8)
[2021-07-07 07:12] LABS: Actual Bicarbonate (HCO3a) 34.4 mEq/L (22-28); Base Excess (BEa) 8.7 mEq/L (-2.0 to +3.0); CO2 Tension 52.4 mmHg (35.0-45.0); Calcium, Ionized (arterial) 1.08 mmol/L (1.12-1.30); Carboxyhemoglobin (COHb) 0.9 gm% (0.0-3.0); Hemoglobin (Hb) 11.8 g/dL (12.0-16.0); Potassium - ABG Lab 4.11 mmol/L (3.70-5.30); pH, Arterial 7.44 (7.35-7.45)
[2021-07-07 07:47] LABS: O2 Tension (PaO2), arterial 61.2 mmHg (80.0-100.0)
[2021-07-07 07:48] LABS: Puncture Site RRA
[2021-07-07] MEDS: methylPREDNISolone Sod Succ 40 MG VIAL IVP SCH (08:40)
[2021-07-07] MEDS: Enoxaparin Sodium 60 MG/0.6 ML SYRINGE SC SCH (08:40)
[2021-07-07] MEDS: Polyethylene Glycol 3350 17 GM Packet PER TUBE SCH (08:40)
[2021-07-07] MEDS: Pantoprazole 40 MG VIAL IVP SCH (08:41)
[2021-07-07] MEDS: Cefepime 2 GM in Sodium Chloride 0.9% 100 ML IVPB SCH ×2 (08:41→21:07)
[2021-07-07] MEDS ORDERED: Metoclopramide HCl 10 MG TAB PO SCH (10:45)
[2021-07-07] MEDS ORDERED: Metoclopramide HCl 10 MG/2 ML VIAL IVP SCH (11:30)
[2021-07-07] MEDS ORDERED: Fentanyl CADD 100 ML ONE (13:17)
[2021-07-07] MEDS: Fentanyl CADD 100 ML IV SCH (13:22)
[2021-07-07] MEDS: Metoclopramide HCl 10 MG/2 ML VIAL IVP SCH ×2 (16:03→21:06)
[2021-07-07] MEDS: Vancomycin 1 GM in Premix Bag 1 BAG IVPB SCH (21:07)
[2021-07-08] MEDS: Propofol 1,000 MG/100 ML VIAL IV PRN ×8 (00:08→22:56)
[2021-07-08 05:35] LABS: #Basophils 0.1 thou/uL (0.0-0.2); #Eosinphils 0.1 thou/uL (0.0-0.7); #Lymphocytes 1.1 thou/uL (1.20-3.40); #Monocytes 0.8 thou/uL (0.11-0.59); #Neutrophils 6.3 thou/uL (1.40-6.50); %Basophils 0.6 % (0.0-1.0); %Eosinophils 0.8 % (0.0-10.0); %Lymphocytes 13.4 % (21.0-51.0); %Monocytes 9.5 % (0.0-10.0); %Neutrophils 75.6 % (42.0-75.0); Hemoglobin 10.9 g/dL (12.0-16.0); Mean Corpuscular HGB CONC 32.7 g/dL (32.0-36.0); Mean Corpuscular Hemoglobin 32.1 pg (27.0-31.0); Mean Corpuscular Volume 98.2 fL (78.0-98.0); Mean Platelet Volume 9.4 fL (7.4-10.4); Platelet Count 87 thou/uL (130-400); RBC Distribution Width 16.8 % (11.5-14.5); White Blood Cell (WBC) Count 8.3 thou/uL (4.8-10.8)
[2021-07-08 05:41] LABS: Sodium 138 mmol/L (136-145)
[2021-07-08 05:42] LABS: ALT (SGPT) 33 U/L (8-55); AST (SGOT) 63 U/L (5-34); Albumin 2.6 g/dL (3.5-5.0); Alkaline Phosphatase 63 U/L (40-110); Anion Gap 12 mmol/L (10-20); BUN (Urea Nitrogen) 59 mg/dL (9.8-20.1); Bilirubin, Total 1.9 mg/dL (0.2-1.2); Calc. Creatinine Clearance 173 mL/min (70-130); Calcium 7.9 mg/dL (7.8-10.44); Carbon Dioxide 33 mmol/L (22-29); Chloride 97 mmol/L (98-107); Globulin 3.1 g/dL (2.4-3.5); Glucose 98 mg/dL (70-105); Magnesium 2.4 mg/dL (1.6-2.6); Potassium 3.8 mmol/L (3.5-5.1); Protein, Total 5.7 g/dL (6.0-8.3)
[2021-07-08 08:23] LABS: Actual Bicarbonate (HCO3a) 28.8 mEq/L (22-28); Base Excess (BEa) 7.3 mEq/L (-2.0 to +3.0); CO2 Tension 30.6 mmHg (35.0-45.0); Calcium, Ionized (arterial) 1.03 mmol/L (1.12-1.30); Carboxyhemoglobin (COHb) 0.3 gm% (0.0-3.0); Hemoglobin (Hb) 11.6 g/dL (12.0-16.0); O2 Tension (PaO2), arterial 60.2 mmHg (80.0-100.0)
[2021-07-08 08:25] LABS: Puncture Site RRA; pH, Arterial 7.59 (7.35-7.45)
[2021-07-08] MEDS: methylPREDNISolone Sod Succ 40 MG VIAL IVP SCH (09:21)
[2021-07-08] MEDS: Metoclopramide HCl 10 MG/2 ML VIAL IVP SCH ×3 (09:22→20:18)
[2021-07-08] MEDS: Pantoprazole 40 MG VIAL IVP SCH (09:22)
[2021-07-08] MEDS: Vancomycin 1 GM in Premix Bag 1 BAG IVPB SCH ×2 (09:22→20:18)
[2021-07-08] MEDS: Enoxaparin Sodium 60 MG/0.6 ML SYRINGE SC SCH (09:23)
[2021-07-08] MEDS: Polyethylene Glycol 3350 17 GM Packet PER TUBE SCH (09:23)
[2021-07-08] MEDS: Fentanyl CADD 100 ML IV SCH (09:39)
[2021-07-09 04:30] LABS: #Eosinphils 0.1 thou/uL (0.0-0.7); #Lymphocytes 0.7 thou/uL (1.20-3.40); #Monocytes 0.7 thou/uL (0.11-0.59); #Neutrophils 5.5 thou/uL (1.40-6.50); %Basophils 0.1 % (0.0-1.0); %Eosinophils 1.2 % (0.0-10.0); %Lymphocytes 10.4 % (21.0-51.0); %Monocytes 10.1 % (0.0-10.0); %Neutrophils 78.3 % (42.0-75.0); Hemoglobin 11.3 g/dL (12.0-16.0); Mean Corpuscular HGB CONC 31.8 g/dL (32.0-36.0); Mean Corpuscular Hemoglobin 31.6 pg (27.0-31.0); Mean Corpuscular Volume 99.1 fL (78.0-98.0); Mean Platelet Volume 9.2 fL (7.4-10.4); Platelet Count 91 thou/uL (130-400); RBC Distribution Width 16.4 % (11.5-14.5); Red Blood Cell (RBC) Count 3.59 mill/uL (4.20-5.40)
[2021-07-09 04:37] LABS: ALT (SGPT) 34 U/L (8-55); AST (SGOT) 63 U/L (5-34); Albumin 2.7 g/dL (3.5-5.0); Alkaline Phosphatase 69 U/L (40-110); Anion Gap 12 mmol/L (10-20); BUN (Urea Nitrogen) 61 mg/dL (9.8-20.1); Bilirubin, Total 2.2 mg/dL (0.2-1.2); Calc. Creatinine Clearance 168 mL/min (70-130); Calcium 8.2 mg/dL (7.8-10.44); Carbon Dioxide 34 mmol/L (22-29); Chloride 96 mmol/L (98-107); Globulin 3.3 g/dL (2.4-3.5); Glucose 117 mg/dL (70-105); Magnesium 2.5 mg/dL (1.6-2.6); Sodium 138 mmol/L (136-145)
[2021-07-09] MEDS: Propofol 1,000 MG/100 ML VIAL IV PRN ×7 (05:03→20:31)
[2021-07-09] MEDS: Fentanyl CADD 100 ML IV SCH (06:01)
[2021-07-09 07:13] LABS: Vancomycin, Trough 21.7 ug/mL
[2021-07-09 08:07] LABS: Actual Bicarbonate (HCO3a) 30.1 mEq/L (22-28); Base Excess (BEa) 6.8 mEq/L (-2.0 to +3.0); Calcium, Ionized (arterial) 1.07 mmol/L (1.12-1.30); Carboxyhemoglobin (COHb) 0.8 gm% (0.0-3.0); Hemoglobin (Hb) 11.9 g/dL (12.0-16.0); O2 Tension (PaO2), arterial 76.9 mmHg (80.0-100.0); Potassium - ABG Lab 3.63 mmol/L (3.70-5.30); pH, Arterial 7.52 (7.35-7.45)
[2021-07-09 08:10] LABS: Puncture Site RRA
[2021-07-09] MEDS ORDERED: Fentanyl CADD 0 ML ONE (08:27)
[2021-07-09] MEDS: Vancomycin 1 GM in Premix Bag 1 BAG IVPB SCH ×2 (08:39→20:31)
[2021-07-09] MEDS: Metoclopramide HCl 10 MG/2 ML VIAL IVP SCH ×3 (08:40→20:31)
[2021-07-09] MEDS: Enoxaparin Sodium 60 MG/0.6 ML SYRINGE SC SCH (08:41)
[2021-07-09] MEDS: Polyethylene Glycol 3350 17 GM Packet PER TUBE SCH (08:41)
[2021-07-09] MEDS: Pantoprazole 40 MG VIAL IVP SCH (08:41)
[2021-07-09] MEDS: methylPREDNISolone Sod Succ 40 MG VIAL IVP SCH (08:41)
[2021-07-09 16:55] LABS: SARS-CoV-2 PCR by NAA Not Detected (NotDetected)
[2021-07-10] MEDS: Propofol 1,000 MG/100 ML VIAL IV PRN ×7 (00:32→18:45)
[2021-07-10] MEDS: Fentanyl CADD 100 ML IV SCH ×2 (02:17→21:02)
[2021-07-10 04:20] LABS: ALT (SGPT) 37 U/L (8-55); AST (SGOT) 66 U/L (5-34); Albumin 2.8 g/dL (3.5-5.0); Alkaline Phosphatase 71 U/L (40-110); Anion Gap 12 mmol/L (10-20); BUN (Urea Nitrogen) 57 mg/dL (9.8-20.1); Bilirubin, Total 2.1 mg/dL (0.2-1.2); Calc. Creatinine Clearance 185 mL/min (70-130); Calcium 8.3 mg/dL (7.8-10.44); Carbon Dioxide 36 mmol/L (22-29); Chloride 95 mmol/L (98-107); Globulin 3.4 g/dL (2.4-3.5); Glucose 109 mg/dL (70-105); Magnesium 2.5 mg/dL (1.6-2.6); Potassium 4.4 mmol/L (3.5-5.1); Protein, Total 6.2 g/dL (6.0-8.3); Sodium 139 mmol/L (136-145)
[2021-07-10 04:22] LABS: Phosphorus 4.6 mg/dL (2.3-4.7)
[2021-07-10 05:06] LABS: #Basophils 0.1 thou/uL (0.0-0.2); #Eosinphils 0.1 thou/uL (0.0-0.7); #Lymphocytes 0.6 thou/uL (1.20-3.40); #Monocytes 0.7 thou/uL (0.11-0.59); #Neutrophils 4.8 thou/uL (1.40-6.50); %Basophils 1.3 % (0.0-1.0); %Lymphocytes 9.2 % (21.0-51.0); %Monocytes 11.6 % (0.0-10.0); %Neutrophils 75.8 % (42.0-75.0); Hemoglobin 12.2 g/dL (12.0-16.0); Mean Corpuscular HGB CONC 34.6 g/dL (32.0-36.0); Mean Corpuscular Hemoglobin 34.4 pg (27.0-31.0); Mean Corpuscular Volume 99.7 fL (78.0-98.0); Mean Platelet Volume 9.3 fL (7.4-10.4); Platelet Count 90 thou/uL (130-400); RBC Distribution Width 16.2 % (11.5-14.5); Red Blood Cell (RBC) Count 3.53 mill/uL (4.20-5.40); White Blood Cell (WBC) Count 6.3 thou/uL (4.8-10.8)
[2021-07-10 07:34] LABS: Actual Bicarbonate (HCO3a) 34.9 mEq/L (22-28); Base Excess (BEa) 7.7 mEq/L (-2.0 to +3.0); CO2 Tension 59.8 mmHg (35.0-45.0); Carboxyhemoglobin (COHb) 0.8 gm% (0.0-3.0); Hemoglobin (Hb) 14.4 g/dL (12.0-16.0); O2 Tension (PaO2), arterial 109.1 mmHg (80.0-100.0); Potassium - ABG Lab 4.15 mmol/L (3.70-5.30); pH, Arterial 7.38 (7.35-7.45)
[2021-07-10 07:52] LABS: Puncture Site RRA
[2021-07-10] MEDS: Polyethylene Glycol 3350 17 GM Packet PER TUBE SCH (08:41)
[2021-07-10] MEDS: Enoxaparin Sodium 60 MG/0.6 ML SYRINGE SC SCH (08:41)
[2021-07-10] MEDS: Pantoprazole 40 MG VIAL IVP SCH (08:41)
[2021-07-10] MEDS: methylPREDNISolone Sod Succ 40 MG VIAL IVP SCH (08:41)
[2021-07-10] MEDS: Vancomycin 1 GM in Premix Bag 1 BAG IVPB SCH ×2 (08:41→21:01)
[2021-07-10] MEDS: Metoclopramide HCl 10 MG/2 ML VIAL IVP SCH ×3 (08:41→21:03)
[2021-07-10] MEDS ORDERED: Cefepime 2 GM in Sodium Chloride 0.9% 100 ML IVPB SCH (09:15)
[2021-07-10] MEDS: Lorazepam 2 MG/ML VIAL SLOW IVP PRN (17:07)
[2021-07-10] MEDS ORDERED: Fentanyl CADD 100 ML ONE (20:28)
[2021-07-10] MEDS: Cefepime 2 GM in Sodium Chloride 0.9% 100 ML IVPB SCH (21:02)
[2021-07-11] MEDS: Propofol 1,000 MG/100 ML VIAL IV PRN ×6 (00:16→14:51)
[2021-07-11 04:16] LABS: ALT (SGPT) 45 U/L (8-55); AST (SGOT) 72 U/L (5-34); Albumin 2.8 g/dL (3.5-5.0); Alkaline Phosphatase 85 U/L (40-110); Anion Gap 16 mmol/L (10-20); BUN (Urea Nitrogen) 61 mg/dL (9.8-20.1); Bilirubin, Total 3.1 mg/dL (0.2-1.2); Calc. Creatinine Clearance 152 mL/min (70-130); Calcium 8.7 mg/dL (7.8-10.44); Carbon Dioxide 32 mmol/L (22-29); Chloride 95 mmol/L (98-107); Globulin 3.6 g/dL (2.4-3.5); Glucose 88 mg/dL (70-105); Magnesium 2.3 mg/dL (1.6-2.6); Potassium 4.5 mmol/L (3.5-5.1); Protein, Total 6.4 g/dL (6.0-8.3); Sodium 138 mmol/L (136-145)
[2021-07-11 04:49] LABS: Phosphorus 3.6 mg/dL (2.3-4.7)
[2021-07-11 05:08] LABS: #Basophils 0.1 thou/uL (0.0-0.2); #Eosinphils 0.1 thou/uL (0.0-0.7); #Lymphocytes 0.9 thou/uL (1.20-3.40); #Monocytes 1.6 thou/uL (0.11-0.59); #Neutrophils 14.9 thou/uL (1.40-6.50); %Basophils 0.5 % (0.0-1.0); %Eosinophils 0.5 % (0.0-10.0); %Lymphocytes 4.8 % (21.0-51.0); %Monocytes 9.3 % (0.0-10.0); %Neutrophils 84.9 % (42.0-75.0); Hemoglobin 12.4 g/dL (12.0-16.0); Mean Corpuscular HGB CONC 33.3 g/dL (32.0-36.0); Mean Corpuscular Hemoglobin 32.6 pg (27.0-31.0); Mean Platelet Volume 9.4 fL (7.4-10.4); Platelet Count 109 thou/uL (130-400); Red Blood Cell (RBC) Count 3.81 mill/uL (4.20-5.40); White Blood Cell (WBC) Count 17.6 thou/uL (4.8-10.8)
[2021-07-11 07:31] LABS: Actual Bicarbonate (HCO3a) 31.1 mEq/L (22-28); Base Excess (BEa) 5.2 mEq/L (-2.0 to +3.0); CO2 Tension 51.1 mmHg (35.0-45.0); Calcium, Ionized (arterial) 1.11 mmol/L (1.12-1.30); Carboxyhemoglobin (COHb) 0.8 gm% (0.0-3.0); Hemoglobin (Hb) 12.7 g/dL (12.0-16.0); O2 Tension (PaO2), arterial 65.5 mmHg (80.0-100.0); Potassium - ABG Lab 4.13 mmol/L (3.70-5.30)
[2021-07-11 07:32] LABS: Puncture Site RRA
[2021-07-11 07:33] LABS: ALV-art Gradient 155.825 mmHg (0-20)
[2021-07-11 07:34] LABS: Vancomycin, Trough 36.3 ug/mL
[2021-07-11] MEDS: Enoxaparin Sodium 60 MG/0.6 ML SYRINGE SC SCH (08:37)
[2021-07-11] MEDS: Metoclopramide HCl 10 MG/2 ML VIAL IVP SCH ×3 (08:37→20:39)
[2021-07-11] MEDS: Pantoprazole 40 MG VIAL IVP SCH (08:37)
[2021-07-11] MEDS: Cefepime 2 GM in Sodium Chloride 0.9% 100 ML IVPB SCH ×2 (08:38→20:38)
[2021-07-11] MEDS: Polyethylene Glycol 3350 17 GM Packet PER TUBE SCH (08:38)
[2021-07-11] MEDS: methylPREDNISolone Sod Succ 40 MG VIAL IVP SCH (08:38)
[2021-07-11] MEDS: Dextrose 5 % And 0.9 % NaCl 1,000 ML IV SCH (12:48)
[2021-07-11] MEDS ORDERED: Sodium Chloride 0.9% 500 ML IV SCH ×2 (16:15→18:00)
[2021-07-11] MEDS ORDERED: Fentanyl CADD 100 ML ONE (17:58)
[2021-07-11] MEDS: Fentanyl CADD 100 ML IV SCH (18:02)
[2021-07-11] MEDS: Vancomycin 1 GM in Premix Bag 1 BAG IVPB SCH (20:41)
[2021-07-12] MEDS: Dextrose 5 % And 0.9 % NaCl 1,000 ML IV SCH ×3 (01:37→21:57)
[2021-07-12 04:49] LABS: Anion Gap 14 mmol/L (10-20); BUN (Urea Nitrogen) 75 mg/dL (9.8-20.1); Calc. Creatinine Clearance 100 mL/min (70-130); Calcium 8.1 mg/dL (7.8-10.44); Carbon Dioxide 32 mmol/L (22-29); Chloride 97 mmol/L (98-107); Glucose 134 mg/dL (70-105); Potassium 4.7 mmol/L (3.5-5.1); Sodium 138 mmol/L (136-145)
[2021-07-12 04:52] LABS: #Basophils 0.1 thou/uL (0.0-0.2); #Lymphocytes 0.7 thou/uL (1.20-3.40); #Monocytes 1.2 thou/uL (0.11-0.59); #Neutrophils 15.6 thou/uL (1.40-6.50); %Basophils 0.5 % (0.0-1.0); %Eosinophils 0.2 % (0.0-10.0); %Lymphocytes 4.2 % (21.0-51.0); %Monocytes 6.9 % (0.0-10.0); %Neutrophils 88.2 % (42.0-75.0); Hemoglobin 10.5 g/dL (12.0-16.0); Mean Corpuscular HGB CONC 31.7 g/dL (32.0-36.0); Mean Corpuscular Hemoglobin 31.6 pg (27.0-31.0); Mean Corpuscular Volume 99.8 fL (78.0-98.0); Mean Platelet Volume 9.6 fL (7.4-10.4); Platelet Count 78 thou/uL (130-400); RBC Distribution Width 16.5 % (11.5-14.5); Red Blood Cell (RBC) Count 3.33 mill/uL (4.20-5.40); White Blood Cell (WBC) Count 17.7 thou/uL (4.8-10.8)
[2021-07-12 06:33] LABS: Vancomycin, Random 27.4 ug/mL (See Comment)
[2021-07-12 07:31] LABS: Actual Bicarbonate (HCO3a) 20.5 mEq/L (22-28); Base Excess (BEa) -2.2 mEq/L (-2.0 to +3.0); CO2 Tension 28.3 mmHg (35.0-45.0); Calcium, Ionized (arterial) 1.16 mmol/L (1.12-1.30); Carboxyhemoglobin (COHb) 0.3 gm% (0.0-3.0); Hemoglobin (Hb) 10.2 g/dL (12.0-16.0); Potassium - ABG Lab 3.16 mmol/L (3.70-5.30); pH, Arterial 7.48 (7.35-7.45)
[2021-07-12 07:33] LABS: O2 Tension (PaO2), arterial 53.7 mmHg (80.0-100.0)
[2021-07-12 07:46] LABS: Puncture Site LBA
[2021-07-12 07:47] LABS: ALV-art Gradient 267.425 mmHg (0-20)
[2021-07-12] MEDS: Cefepime 2 GM in Sodium Chloride 0.9% 100 ML IVPB SCH ×2 (08:02→21:08)
[2021-07-12] MEDS: Metoclopramide HCl 10 MG/2 ML VIAL IVP SCH ×3 (08:02→21:08)
[2021-07-12] MEDS: methylPREDNISolone Sod Succ 40 MG VIAL IVP SCH (08:03)
[2021-07-12] MEDS: Polyethylene Glycol 3350 17 GM Packet PER TUBE SCH (08:03)
[2021-07-12] MEDS: Lorazepam 2 MG/ML VIAL SLOW IVP PRN (08:03)
[2021-07-12] MEDS: Pantoprazole 40 MG VIAL IVP SCH (08:03)
[2021-07-12] MEDS: Enoxaparin Sodium 60 MG/0.6 ML SYRINGE SC SCH (08:03)
[2021-07-12] MEDS ORDERED: Vancomycin 1 GM in Premix Bag 1 BAG IVPB SCH (08:15)
[2021-07-12] MEDS ORDERED: Fentanyl CADD 100 ML ONE (14:07)
[2021-07-12] MEDS: Fentanyl CADD 100 ML IV SCH (14:12)
[2021-07-13 05:10] LABS: Hemoglobin 11.2 g/dL (12.0-16.0); Mean Corpuscular HGB CONC 31.3 g/dL (32.0-36.0); Mean Corpuscular Hemoglobin 31.5 pg (27.0-31.0); Mean Platelet Volume 9.9 fL (7.4-10.4); Platelet Count 81 thou/uL (130-400); RBC Distribution Width 16.1 % (11.5-14.5); Red Blood Cell (RBC) Count 3.56 mill/uL (4.20-5.40); White Blood Cell (WBC) Count 19.7 thou/uL (4.8-10.8)
[2021-07-13 05:18] LABS: Anion Gap 15 mmol/L (10-20); BUN (Urea Nitrogen) 82 mg/dL (9.8-20.1); Calc. Creatinine Clearance 86 mL/min (70-130); Calcium 8.1 mg/dL (7.8-10.44); Carbon Dioxide 30 mmol/L (22-29); Chloride 97 mmol/L (98-107); Glucose 126 mg/dL (70-105); Potassium 4.6 mmol/L (3.5-5.1); Sodium 137 mmol/L (136-145)
[2021-07-13 05:37] LABS: Band 2 % (5-11); Lymphocytes 2 % (21-51); MDiff Complete? YES; Monocytes 8 % (0-10); Neutrophil 88 % (42-75); Platelet Morphology Comment Appears Decreased
[2021-07-13 07:12] LABS: Vancomycin, Random 21.5 ug/mL (See Comment)
[2021-07-13 07:13] LABS: Calcium, Ionized (arterial) 1.04 mmol/L (1.12-1.30); Carboxyhemoglobin (COHb) 0.7 gm% (0.0-3.0); Hemoglobin (Hb) 11.2 g/dL (12.0-16.0); O2 Tension (PaO2), arterial 70.1 mmHg (80.0-100.0); Potassium - ABG Lab 4.35 mmol/L (3.70-5.30); pH, Arterial 7.41 (7.35-7.45)
[2021-07-13 07:21] LABS: Puncture Site LRA
[2021-07-13] MEDS ORDERED: Fentanyl CADD 100 ML ONE (09:15)
[2021-07-13] MEDS: Fentanyl CADD 100 ML IV SCH (09:20)
[2021-07-13] MEDS: Metoclopramide HCl 10 MG/2 ML VIAL IVP SCH ×3 (09:21→20:25)
[2021-07-13] MEDS: Enoxaparin Sodium 60 MG/0.6 ML SYRINGE SC SCH (09:21)
[2021-07-13] MEDS: methylPREDNISolone Sod Succ 40 MG VIAL IVP SCH (09:21)
[2021-07-13] MEDS: Polyethylene Glycol 3350 17 GM Packet PER TUBE SCH (09:22)
[2021-07-13] MEDS: Pantoprazole 40 MG VIAL IVP SCH (09:23)
[2021-07-13] MEDS: Dextrose 5 % And 0.9 % NaCl 1,000 ML IV SCH ×2 (09:40→20:26)
[2021-07-13 11:05] LABS: Bilirubin Negative (Negative); Blood, Urine 3+ (Negative); Clarity Extra Turbid (Clear); Glucose, Urine (Dipstick) Normal (Negative); Ketone, Urine Trace mg/dL (Negative); Leukocyte 500 Leu/uL (Negative); Nitrite Negative (Negative); Protein, Urine (Dipstick) 70 mg/dL (Neg-Trace); Specific Gravity, Urine 1.019 (1.002-1.036); Squamous Epithelial 0-3 HPF (0-3); Urobilinogen Normal mg/dL (Less than 2); pH, Urine 5.5 (5.0-9.0)
[2021-07-13 11:21] LABS: Bacteria/HPF 1+ HPF (None Seen)
[2021-07-14] MEDS: Dextrose 5 % And 0.9 % NaCl 1,000 ML IV SCH (06:30)
[2021-07-14] MEDS: Pantoprazole 40 MG VIAL IVP SCH (08:33)
[2021-07-14] MEDS: Enoxaparin Sodium 60 MG/0.6 ML SYRINGE SC SCH (08:34)
[2021-07-14] MEDS: Metoclopramide HCl 10 MG/2 ML VIAL IVP SCH (08:34)
[2021-07-14] MEDS: methylPREDNISolone Sod Succ 40 MG VIAL IVP SCH (08:34)
[2021-07-14] MEDS ORDERED: Lorazepam 2 MG/ML VIAL SLOW IVP PRN (10:28)
[2021-07-14] MEDS ORDERED: Morphine 4 MG/ML VIAL SLOW IVP SCH (10:30)
[2021-07-14] MEDS: Polyethylene Glycol 3350 17 GM Packet PER TUBE SCH (10:50)
[2021-07-14] MEDS: Morphine 4 MG/ML VIAL SLOW IVP PRN ×2 (11:42→12:16)
[2021-07-14 16:29] VITALS: BP 66/34; TEMP 97.9
== END 2021-07-14 12:38 | disposition expired | DRG 870 ==
LOC: ERS 12:18 → CCU 17:25 → T4-B 07-14 10:12
PROVIDERS: ADMIT Internal Medicine; ATTEND Family Medicine
PROC: 5A1955Z Respiratory Ventilation, Greater than 96 Consecutive Hours (ICD-10-PCS; principal; 2021-07-01)
PROC: 0BH18EZ Insertion of Endotracheal Airway into Trachea, Via Natural or Artificial Opening Endoscopic (ICD-10-PCS; 2021-07-01)
PROC: 06HY33Z Insertion of Infusion Device into Lower Vein, Percutaneous Approach (ICD-10-PCS; 2021-07-01)
PROC: 0D9670Z Drainage of Stomach with Drainage Device, Via Natural or Artificial Opening (ICD-10-PCS; 2021-07-01)
PROC: 3E033XZ Introduction of Vasopressor into Peripheral Vein, Percutaneous Approach (ICD-10-PCS; 2021-07-01)
PROC: 3E0G76Z Introduction of Nutritional Substance into Upper GI, Via Natural or Artificial Opening (ICD-10-PCS; 2021-07-02)
DX: A41.4 Sepsis due to anaerobes (principal); J96.21 Acute and chronic respiratory failure with hypoxia; G93.41 Metabolic encephalopathy; J15.6 Pneumonia due to other Gram-negative bacteria; J15.211 Pneumonia due to Methicillin susceptible Staphylococcus aureus; J96.22 Acute and chronic respiratory failure with hypercapnia; I50.33 Acute on chronic diastolic (congestive) heart failure; E66.2 Morbid (severe) obesity with alveolar hypoventilation; L03.311 Cellulitis of abdominal wall; N39.0 Urinary tract infection, site not specified; I13.0 Hypertensive heart and chronic kidney disease with heart failure and stage 1 through stage 4 chronic kidney disease, or unspecified chronic kidney disease; Z99.11 Dependence on respirator [ventilator] status; Z68.45 Body mass index [BMI] 70 or greater, adult; N17.9 Acute kidney failure, unspecified; E87.3 Alkalosis; A41.01 Sepsis due to Methicillin susceptible Staphylococcus aureus; Z66 Do not resuscitate; Z51.5 Encounter for palliative care; Z20.822 Contact with and (suspected) exposure to COVID-19; E78.5 Hyperlipidemia, unspecified; M19.90 Unspecified osteoarthritis, unspecified site; K21.9 Gastro-esophageal reflux disease without esophagitis; L30.4 Erythema intertrigo; R73.9 Hyperglycemia, unspecified; I27.29 Other secondary pulmonary hypertension; D69.6 Thrombocytopenia, unspecified; T78.3XXA Angioneurotic edema, initial encounter; N61.0 Mastitis without abscess; N18.30 Chronic kidney disease, stage 3 unspecified; Z90.49 Acquired absence of other specified parts of digestive tract; Z88.5 Allergy status to narcotic agent; Z88.8 Allergy status to other drugs, medicaments and biological substances; Z79.899 Other long term (current) drug therapy; Z79.82 Long term (current) use of aspirin; Z99.89 Dependence on other enabling machines and devices; Z78.1 Physical restraint status; Z91.19 Patient's noncompliance with other medical treatment and regimen; I25.10 Atherosclerotic heart disease of native coronary artery without angina pectoris; Z99.3 Dependence on wheelchair
CPT/HCPCS: 31500; 36415; 36416; 36556; 36600; 51702; 71045; 74018; 80048; 80053; 80202; 81001; 81003; 81015; 82550; 82805; 83605; 83690; 83735; 83880; 84100; 84145; 84443; 84478; 84484; 85025; 85379; 87040; 87070; 87077; 87086; 87186; 87205; 87529; 87798; 93005; 94002; 94003; 94640; 94760; 96365; 96366; 96372; 96374; 96375; 96376; 99292; C9113; J0171; J0692; J1200; J1650; J1940; J2060; J2248; J2250; J2270; J2704; J2765; J2920; J2930; J3010; J3370; J3490; J7030; J7042; J7120; J7620; S0028; U0002; U0003; U0005